=== PATIENT | male | born 1940 | race Caucasian/White ===

== ENCOUNTER 2016-08-07 10:23 | Emergency (ER) | payer OTHER ==
[~2016-08-07 10:23] MED LIST: ACET-1311 PO; ASPI81TA28 PO; BISA10SU5 PR; CHOL1000 PO; CLC100X PO; ENOX1INJ8 SQ; FAMO20TA11 PO; LACT10SO30 PO; LPT40 PO; MAGNSUS5 PO; MCRK20 PO; NF656 TD; PARO1TAB27 PEG; POLY335025 PO; SENN-91 PO; SODIENE PR; TRAM-10 PO
[2016-08-07 10:29] VITALS: TEMP 36.7
--- NOTE | 2016-08-07 10:54 | EMERGENCY ROOM VISIT NOTE ---
History Report prepared by Mil: Gopi Sainz Under the Supervision of: Dr. Pk Ivory D.O. First contact with patient: 10:35 Chief Complaint: SWELLING TO EXTREMITY Stated Complaint: RT FOOT SWELLED,BLACK&BLUE,LEFT FOOT BLACK &BLUE History of Present Illness The patient is a 76 year old male who presents to the Emergency Room with complaints of worsening feet discoloration that started a few days ago. Per the patient's daughter, the patient started having right foot swelling 6 days ago, but it did not have any discoloration. The patient's right foot then started turning purple a few days ago, and last night, the patient's daughter noticed that the patient's left foot started turning purple. The patient's daughter says that the patient denies any recent injuries to his feet. The patient is able to stand and pivot into his wheelchair, but needs his daughter to hold him up. The patient notes that his feet are painful. He denies any nausea, vomiting , abdominal pain, or hip pain. The patient takes 200 mg Gabapentin 3 times per day, and 50 mg Tramadol as needed. He has a history of a stroke in 2004, and had a fall 3 years ago, which caused the patient to have a right total hip replacement. Source of History: patient, family Onset: A few days ago Position: foot (bilateral) Quality: other (discoloration - purple) Timing: worsening Associated Symptoms: No abdominal pain, No nausea, No vomiting Note: Associated symptoms: Right foot swelling. Denies hip pain. Review of Systems See HPI for pertinent positives & negatives. A total of 10 systems reviewed and were otherwise negative. Past Medical & Surgical Medical Problems: (1) Depressive Disorder Nec (2) Hypertension Nos (3) Stroke (4) Throat cancer Family History Family history omitted secondary to patient's advanced age. Social History Smoking Status: Current Every Day Smoker Marital Status: Housing Status: lives alone Occupation Status: disabled Current/Historical Medications Scheduled Cholecalciferol (Vitamin D3), 1,000 INTER.UNIT PO DAILY Gabapentin (Neurontin), 200 MG PO TID Levothyroxine Sodium (Levothyroxine Sodium), 100 MCG PO DAILY Paroxetine (Paxil), 20 MG PO HS Varenicline (Chantix), 0.5 MG PO BID Scheduled PRN Bisacodyl (Bisacodyl), 1 SUPP CA 2XWK PRN for No Bowel Movement/Constipation Tramadol (Ultram), 50 MG PO Q4H PRN for Pain Allergies Coded Allergies: Aspirin (Verified Adverse Reaction, Mild, PT AVOIDS ASPIRIN, 08/07/16) Physical Exam Vital Signs Date Time Temp Pulse Resp B/P Pulse Ox O2 Delivery O2 Flow Rate FiO2 08/07/16 13:20 60 20 99 08/07/16 13:15 64 19 99 08/07/16 13:10 65 17 98 08/07/16 13:05 68 24 100 08/07/16 13:00 124/56 08/07/16 12:53 68 17 99 08/07/16 12:30 114/67 08/07/16 12:23 72 19 98 08/07/16 12:01 116/58 08/07/16 11:53 74 18 99 08/07/16 11:40 121/52 08/07/16 11:34 76 08/07/16 11:01 118/55 08/07/16 10:40 136/67 08/07/16 10:29 36.7 98 20 83/55 98 Room Air Physical Exam GENERAL: Patient is awake, alert, and in no acute distress. Patient is resting comfortably and showing no signs of anxiety EYES: The conjunctivae are clear. The pupils are round and reactive. EARS, NOSE, MOUTH AND THROAT: Mucous membranes are moist. NECK: The neck is nontender and supple. RESPIRATORY: Normal respiratory effort is noted there is no evidence of wheezing rhonchi or rales CARDIOVASCULAR: Regular rate and rhythm noted there no murmurs rubs or gallops normal S1 normal S2 GASTROINTESTINAL: The abdomen is soft. Bowel sounds are present in all quadrants. Abdomen is nontender MUSCULOSKELETAL/EXTREMITIES: Ecchymosis noted over medial aspect of both heels. Significant tenderness over both heels with compression. Ecchymosis appeared age indeterminant and nonacute. SKIN: No edema noted. Pulses symmetric in both lower extremities. NEUROLOGIC: Patient is at baseline according to daughter. Medical Decision & Procedures ER Provider Diagnostic Interpretation: X-ray results as stated below per interpretation by me and the radiologist. RIGHT FOOT MIN 3 VIEWS ROUTINE CLINICAL HISTORY: Right foot swelling COMPARISON: None. DISCUSSION: The bones are osteopenic. No acute fractures are visualized. There is an Achilles insertional spur. There is mild soft tissue swelling. There is no air within soft tissues. There are no bony destructive changes. IMPRESSION: Osteopenia. No acute fractures. No destructive lesions are visualized. Electronically signed by: Saad Harris M.D. 08/07/2016 11:45 AM Dictated Date/Time: 08/07/2016 11:44 AM LEFT FOOT MIN 3 VIEWS ROUTINE CLINICAL HISTORY: Left foot pain and bruising. No known trauma. COMPARISON: None. DISCUSSION: The bones are osteopenic. No acute fractures are visualized. There is fusion of the second and third proximal interphalangeal joints. No destructive lesions are evident. Vascular calcifications are visualized. IMPRESSION: 1. No acute fractures or dislocations 2. Osteopenia 3. Fusion of the second and third proximal interphalangeal joints Electronically signed by: Saad Harris M.D. 08/07/2016 11:53 AM Dictated Date/Time: 08/07/2016 11:52 AM ED Course 1045: The patient was evaluated in room B6. A complete history and physical examination were performed. 1258: I talked to the patient's daughter. 1314: Upon reevaluation, the patient is resting comfortably. I discussed the results and treatment plan with him and his daughter. They verbalized agreement of the treatment plan. The patient was discharged home. Medical Decision Prior records reviewed and summarized above. Triage Nursing notes reviewed and agree them. Additional history obtained from daughter. The patient's history was concerning for traumatic injury. Differential diagnosis: Etiologies such as fracture, dislocation, neurovascular compromise, compartment syndrome, soft tissue injury, as well as others were entertained. The patient is a 76-year-old male who presented to the emergency department for ecchymosis over both feet. He was no definite history of trauma but this does not appear to be consistent with infection. The patient had x-rays which did not reveal any acute traumatic injury. I discussed the patient's radiographic studies with him and his daughter. At this time I would recommend that he follow -up with his primary care physician for re-x-ray and return to the emergency department if signs of infection develop such as redness or fever. I do not feel this is consistent with DVT or arterial insufficiency. Impression Primary Impression: Contusion of foot, right Additional Impression: Contusion of foot, left Scribe Attestation The scribe's documentation has been prepared under my direction and personally reviewed by me in its entirety. I confirm that the note above accurately reflects all work, treatment, procedures, and medical decision making performed by me. Departure Information Dispostion Home / Self-Care Referrals Demetrius Lin M.D. (PCP) Forms HOME CARE DOCUMENTATION FORM, IMPORTANT VISIT INFORMATION, WORK / SCHOOL INSTRUCTIONS Patient Instructions Contusion Bone, [facility] Additional Instructions Call your family to schedule a follow-up appointment. Continue all medications as prescribed. Keep a close eye on the area for any signs of cellulitis such as redness or streaking going up the leg. I would recommend re-x -ray of the area if symptoms change worsen or need arises. Problem Qualifiers
[2016-08-07] MEDS ORDERED: GABA-112 PEG (11:09)
[2016-08-07] MEDS ORDERED: LEVO100T7 PEG (11:09)
[2016-08-07] MEDS ORDERED: CHN/1 PO (11:09)
--- NOTE | 2016-08-07 11:46 | DIAGNOSTIC IMAGING REPORT ---
RIGHT FOOT MIN 3 VIEWS ROUTINE CLINICAL HISTORY: Right foot swelling COMPARISON: None. DISCUSSION: The bones are osteopenic. No acute fractures are visualized. There is an Achilles insertional spur. There is mild soft tissue swelling. There is no air within soft tissues. There are no bony destructive changes. IMPRESSION: Osteopenia. No acute fractures. No destructive lesions are visualized. Electronically signed by: Saad Harris M.D. 08/07/2016 11:45 AM Dictated Date/Time: 08/07/2016 11:44 AM
--- NOTE | 2016-08-07 11:54 | DIAGNOSTIC IMAGING REPORT ---
LEFT FOOT MIN 3 VIEWS ROUTINE CLINICAL HISTORY: Left foot pain and bruising. No known trauma. COMPARISON: None. DISCUSSION: The bones are osteopenic. No acute fractures are visualized. There is fusion of the second and third proximal interphalangeal joints. No destructive lesions are evident. Vascular calcifications are visualized. IMPRESSION: 1. No acute fractures or dislocations 2. Osteopenia 3. Fusion of the second and third proximal interphalangeal joints Electronically signed by: Saad Harris M.D. 08/07/2016 11:53 AM Dictated Date/Time: 08/07/2016 11:52 AM
[2016-08-07 13:00] VITALS: BP 124/56
[2016-08-07 13:20] VITALS: PULSE 60; O2SAT 99
[2016-12-10] MEDS ORDERED: Fibersource 1.2 Cal PEG (13:31)
[2016-12-10] MEDS ORDERED: [UNRECOGNIZED DRUG - CODE] PEG (13:31)
[2016-12-10] MEDS ORDERED: IPRASOL4 INH (13:31)
[2016-12-10] MEDS ORDERED: ACET160S3 PEG (13:31)
[2016-12-10] MEDS ORDERED: ASPEC81 PEG (13:33)
== END 2016-08-07 13:23 | disposition home or self-care (01) ==
LOC: C.EDB 10:28
DX: S90.31XA Contusion of right foot, initial encounter (principal); S90.32XA Contusion of left foot, initial encounter; X58.XXXA Exposure to other specified factors, initial encounter; Z86.73 Personal history of transient ischemic attack (TIA), and cerebral infarction without residual deficits; I10 Essential (primary) hypertension; Z85.89 Personal history of malignant neoplasm of other organs and systems; F17.210 Nicotine dependence, cigarettes, uncomplicated; Z79.899 Other long term (current) drug therapy; Z96.641 Presence of right artificial hip joint

== ENCOUNTER 2016-11-28 10:28 | Inpatient (IN) | payer OTHER ==
[~2016-11-28] VITALS: Ht 165.1 cm; Wt 45.1 kg
[~2016-11-28 10:28] MED LIST changes: -ACET-1311 PO; -ASPI81TA28 PO; +CHN/1 PO; -CLC100X PO; -ENOX1INJ8 SQ; -FAMO20TA11 PO; +GABA-112 PEG; -LACT10SO30 PO; +LEVO100T7 PEG; -LPT40 PO; -MAGNSUS5 PO; -MCRK20 PO; -NF656 TD; -POLY335025 PO; -SENN-91 PO; -SODIENE PR
[2016-11-28] MEDS ORDERED: SODIUM CHLORIDE 0.9% 1000ML 1,000 ML IV STA (10:53)
[2016-11-28 12:05] LABS: BASO % 0.3 %; BASO ABS # 0.03 K/uL (0-0.2); COMPLETE YES; EOS % 1.4 %; HEMATOCRIT 34.4 % (42-52); IG% 0.5 %; LYMPH % 8.1 %; LYMPH ABS # 0.95 K/uL (1.2-3.4); MEAN CELL VOLUME 74.1 fL (80-100); MEAN CORPUSCULAR HEMOGLOBIN 24.4 pg (25-34); MEAN CORPUSCULAR HGB CONC 32.8 g/dl (32-36); MEAN PLATELET VOLUME 9.3 fL (7.4-10.4); NEUT % 81.7 %; PLATELET COUNT 408 K/uL (130-400); RED BLOOD COUNT 4.64 M/uL (4.7-6.1); WHITE BLOOD COUNT 11.66 K/uL (4.8-10.8)
[2016-11-28 12:11] LABS: URINE APPEARANCE CLEAR (CLEAR); URINE BILIRUBIN NEG (NEG); URINE COLOR DK YELLOW; URINE EPITHELIAL CELL AUTO 0-5 /lpf (0-5); URINE NITRITE NEG (NEG); URINE SPECIFIC GRAVITY 1.034 (1.000-1.030); UROBILINOGEN NEG (NEG)
[2016-11-28 12:15] LABS: ALT/SGPT 15 U/L (12-78); BLOOD UREA NITROGEN 39 mg/dl (7-18); BUN/CREATININE RATIO 69.8 (10-20); CALCIUM 9.5 mg/dl (8.5-10.1); CARBON DIOXIDE 27 mmol/L (21-32); CHLORIDE 108 mmol/L (98-107); CREATININE 0.56 mg/dl (0.60-1.40); GLUCOSE 141 mg/dl (70-99); MAGNESIUM 2.3 mg/dl (1.8-2.4); POTASSIUM 3.3 mmol/L (3.5-5.1); SODIUM 143 mmol/L (136-145)
[2016-11-28 12:16] LABS: INR 1.1 (0.9-1.1); PARTIAL THROMBOPLASTIN RATIO 1.1; PROTHROMBIN TIME (PATIENT) 11.4 SECONDS (9.0-12.0)
[2016-11-28 12:16] LABS: MANUAL MICROSCOPIC REQUIRED? NO; REVIEW REQ? NO
[2016-11-28] MEDS ORDERED: AMOX875T PO (12:21)
[2016-11-28 12:24] LABS: ALKALINE PHOSPHATASE 86 U/L (45-117); AST/SGOT 20 U/L (15-37); CKMB/CK RATIO 0.3 (0-3.0)
[2016-11-28] MEDS ORDERED: SODIUM CHLORIDE 0.9% 500ML 500 ML IV STA (12:29)
--- NOTE | 2016-11-28 12:29 | DIAGNOSTIC IMAGING REPORT ---
CHEST ONE VIEW PORTABLE HISTORY: 76 years-old Male EVALUATE WEAKNESS acute weakness. Initial exam. COMPARISON: Chest radiograph 11/10/2013 TECHNIQUE: Semiupright AP view of the chest FINDINGS: Cardiac silhouette is mildly enlarged. The patient is rotated to the left. There is atherosclerosis of the aorta. Mild biapical pleural-parenchymal and retrocardiac scarring is again noted without pneumothorax, pleural effusion, focal airspace consolidation or overt pulmonary edema. The bones are grossly intact. IMPRESSION: Mild biapical and retrocardiac subsegmental scarring or atelectasis without acute cardiopulmonary process. The above report was generated using voice recognition software. It may contain grammatical, syntax or spelling errors. Electronically signed by: Venkat Arce M.D. 11/28/2016 12:28 PM Dictated Date/Time: 11/28/2016 12:27 PM
--- NOTE | 2016-11-28 13:17 | DIAGNOSTIC IMAGING REPORT ---
HEAD CT NONCONTRAST CT DOSE: 729.78 mGycm HISTORY: Altered mental status. TECHNIQUE: Multiaxial CT images of the head were performed without the use of intravenous contrast. Automated exposure control was utilized for this study. A dose lowering technique was utilized adhering to the principles of ALARA. Comparison: None. Findings: Paranasal sinuses and right mastoid air cells are clear. Opacified left inferior mastoid air cells. The calvarium and skull base are intact. There is no mass, hematoma, midline shift, acute infarct. White matter hypodensity is nonspecific but suggestive of microvascular ischemic change. The ventricles and sulci demonstrate mild age-related involutional changes. Encephalomalacia within the left external capsule and left posterior frontal lobe consistent with an old infarct. Old lacunar infarction within the left basal ganglia, right thalamus, and right basal ganglia. Impression: No acute intracranial abnormality. Atrophy and microvascular ischemic changes. Old infarcts as described above. Electronically signed by: Lyndon Barron M.D. 11/28/2016 1:16 PM Dictated Date/Time: 11/28/2016 1:13 PM
--- NOTE | 2016-11-28 13:38 | DIAGNOSTIC IMAGING REPORT ---
ABD/PELVIS NO IV OR ORAL CONT HISTORY: 76 years-old Male LLQ pain, altered acute altered mental status with left lower quadrant abdominal pain. Initial exam. COMPARISON: None available. TECHNIQUE: Multiple axial CT images of the abdomen and pelvis were obtained without contrast. A dose lowering technique was used consistent with the principals of SHELL. FINDINGS: The exam is very limited secondary to positioning of the patient. Subsegmental patchy consolidative and groundglass opacities involve the left greater than right basal lower lobes, only partially imaged. There is no pneumoperitoneum. Coronary arterial calcifications are noted. No gross abnormality of the liver identified. There is prominent streak artifact involving the liver from metallic leads adjacent to the right flank. Layering gallstones are seen within the gallbladder lumen without CT evidence of acute cholecystitis. Spleen, pancreas and right adrenal gland are grossly unremarkable. There is nodular thickening of the left adrenal gland suggesting hyperplasia. There are vascular renal calcifications bilaterally without definite renal calculi or hydronephrosis. Pelvic structures including the urinary bladder are mostly obscured from right hip hardware. There is extensive atherosclerosis of the abdominal aorta. No bulky adenopathy is identified. There is no bowel obstruction or focal small bowel wall thickening identified. There is thickening of the rectal wall, 5 mm with 6 cm stool ball in the rectal vault. Mild surrounding inflammatory stranding. There is moderate colonic stool burden. The appendix appears normal. Bones are moderately demineralized with multifocal degenerative changes. No acute bony abnormality. IMPRESSION: 1. Very limited study secondary to patient positioning and lack of contrast. 2. Wall thickening of the rectum with associated moderate rectal stool volume suggests stercoral proctitis with associated constipation. 3. Cholelithiasis without CT evidence of acute cholecystitis. 4. Left greater than right bilateral lower lobe groundglass and consolidative opacities are suspicious for pneumonia or aspiration pneumonitis. 5. Additional incidental findings as above. The above report was generated using voice recognition software. It may contain grammatical, syntax or spelling errors. Electronically signed by: Venkat Arce M.D. 11/28/2016 1:37 PM Dictated Date/Time: 11/28/2016 1:24 PM
[2016-11-28] MEDS ORDERED: PIPERACILLIN/TAZOBACTAM 3.375 GM/100ML D5W IV STA (14:28)
[2016-11-28] MEDS ORDERED: LEVAQUIN 750MG / 150ML D5W IV STA (14:28)
[2016-11-28] MEDS ORDERED: PIPERACILL/TAZOBAC IV 3.375 GM in DEXTROSE 5% 100ML IV ONE (15:00)
[2016-11-28] MEDS ORDERED: ONDANSETRON INJ 2 MG/ML 2 ML VIAL IV PRN (15:30)
[2016-11-28] MEDS ORDERED: ACETAMINOPHEN 325 MG TAB PO PRN (15:30)
[2016-11-28] MEDS ORDERED: CHOL100040 PEG (16:05)
[2016-11-28] MEDS ORDERED: ASPI-589 PO (16:05)
[2016-11-28] MEDS ORDERED: BISA10SU38 PR (16:05)
[2016-11-28] MEDS ORDERED: ASPEC81 PO (16:33)
[2016-11-28] MEDS ORDERED: ACETAMINOPHEN IV 650 MG in EMPTY BAG 0 ML IV PRN (16:45)
[2016-11-28] MEDS ORDERED: ACETAMINOPHEN IV 650 MG in EMPTY BAG 0 ML IV ONE (17:00)
--- NOTE | 2016-11-28 17:16 | History and Physical ---
History & Physical Date & Time of Service: Nov 28, 2016 at 16:03 Chief Complaint: Knee/Leg Issue Primary Care Physician: Demetrius Lin M.D. History of Present Illness Source: family (daughter via phone call) This is a 76 y/o male with PMH of stroke with residual RUE/RLE weakness, aphasia , dysphagia, hx throat cancer, and other problems listed below who was sent to the ED by ambulance from home for decubitus ulcer and hypoxia noted by home nurse. Unable to obtain hx from patient due to aphasia. Per phone call with daughter Nikkie who he lives with, patient developed a bed sore on the sacrum last week. Had been lying in bed most of the day due to bilateral foot pain x 6 weeks. Gets transferred up to wheelchair twice per day. Pt's PCP was called about the ulcer and home nursing was started. Patient has also been on Augmentin for 6 days, Rx called in by Dr. Lin for "lung congestion" heard by home nurse. This morning home nurse noted BP was elevated and oxygen saturations dropped to 86-87% on RA. Not on home O2. Has been coughing without bringing up sputum. No fever or chills. Eats pureed diet. No overt aspiration episode per daughter. Has chronic dysphagia, but daughter feels his swallowing is worse lately. Appetite is low for 2 days (eating half of meals). Lost about 10 lb in past few months. Daughter states she thinks he may need a feeding tube. States he is passing BM on current regimen. Has chronic weakness of RUE and RLE post-stroke. Starting 4 days ago daughter reports RLE is contracted and right knee pain. No recent fall. No recent hospitalization. The patient himself denies chest pain or SOB. Points to lower extremities when asked about pain. Past Medical/Surgical History Medical Problems: (1) CAD (coronary artery disease) Permanent Comment: abnormal stress test 1998 Status: Chronic (2) Depressive Disorder Nec Status: Chronic (3) GERD (gastroesophageal reflux disease) Status: Chronic (4) Hyperlipidemia Status: Chronic (5) Hypertension Nos Status: Chronic (6) Hypothyroidism Status: Chronic (7) Neurogenic bladder Status: Chronic (8) Osteoarthritis Status: Chronic (9) Stroke Permanent Comment: 2004 Status: Resolved (10) Throat cancer Status: Resolved Surgical Problems: (1) H/O tracheostomy Status: Chronic (2) History of right hip replacement Permanent Comment: 2/2 fracture Status: Chronic (3) Hx PEG tube Permanent Comment: removed Status: Chronic (4) S/P hemorrhoidectomy Status: Chronic Family History Diabetes mellitus MOTHER Social History Smoking Status: Current Every Day Smoker (down to 1/4 pack per day up until recently- daughter took away cigs, felt he was not safe smoking) Alcohol Use: 1-2 beers per day up until recently Marital Status: Occupational Status: disabled Multi-Drug Resistant Organisms History of MDRO: No Home Medications Scheduled Amoxicillin & Pot Clavulanate (Augmentin 875-125 mg), 1 TAB PO BID Aspirin (Aspirin EC Low Dose), 81 MG PO DAILY Bisacodyl (Dulcolax), 1 SUPP DC UD Cholecalciferol (Vitamin D-1000), 1 TAB PO DAILY Gabapentin (Neurontin), 200 MG PO TID Levothyroxine Sodium (Levothyroxine Sodium), 75 MCG PO DAILY Paroxetine (Paxil), 20 MG PO DAILY Scheduled PRN Tramadol (Ultram), 50 MG PO Q4H PRN for Pain Physical Exam Vital Signs Date Time Temp Pulse Resp B/P (MAP) Pulse Ox O2 Delivery O2 Flow Rate FiO2 11/28/16 15:23 69 18 166/66 95 Room Air 11/28/16 13:45 72 11/28/16 13:11 69 20 162/81 100 Nasal Cannula 2.0 11/28/16 11:37 79 20 138/72 99 Nasal Cannula 2.0 11/28/16 10:52 99 Nasal Cannula 2.0 11/28/16 10:52 99 Nasal Cannula 2.0 11/28/16 10:44 74 11/28/16 10:41 36.5 81 22 155/63 85 Room Air General Appearance: + cachetic, + pertinent finding (alert frail elderly male, not in distress) Head: normocephalic, atraumatic Eyes: normal inspection, sclerae normal ENT: hearing grossly normal, + pertinent finding (dry mucous membranes) Neck: trachea midline Respiratory/Chest: no respiratory distress, no accessory muscle use, + rhonchi (scattered), + pertinent finding (hypoxic to 89% on RA, mid 90's on 2L NC) Cardiovascular: regular rate, rhythm, no murmur Abdomen/GI: normal bowel sounds, non tender, soft Extremities/Musculoskelatal: no calf tenderness, no pedal edema Neurologic/Psych: alert, normal mood/affect, + pertinent finding (mostly aphasic but can answer yes/no questions, RUE and RLE flaccid from prior stroke, able to move LUE and LLE on command) Skin: + pertinent finding (sacrum has 3x4 cm foul smelling decubitus ulcer, unstageable, at least stage III, surrounding ecchymosis) Diagnostics Laboratory Results Results Past 24 Hours Test 11/28/16 11:00 11/28/16 11:28 11/28/16 11:37 Range/Units Urine Color DK YELLOW Urine Appearance CLEAR CLEAR Urine pH 5.0 4.5-7.5 Urine Specific [place] 1.034 1.000-1.030 Urine Protein 1+ NEG Urine Glucose (UA) NEG NEG Urine Ketones TRACE NEG Urine Occult Blood NEG NEG Urine Nitrite NEG NEG Urine Bilirubin NEG NEG Urine Urobilinogen NEG NEG Urine Leukocyte Esterase NEG NEG Urine WBC (Auto) 1-5 0-5 /hpf Urine RBC (Auto) 0-4 0-4 /hpf Urine Hyaline Casts (Auto) 1-5 0-5 /lpf Urine Epithelial Cells (Auto) 0-5 0-5 /lpf Urine Bacteria (Auto) NEG NEG White Blood Count 11.66 4.8-10.8 K/uL Red Blood Count 4.64 4.7-6.1 M/uL Hemoglobin 11.3 14.0-18.0 g/dL Hematocrit 34.4 42-52 % Mean Corpuscular Volume 74.1 80-100 fL Mean Corpuscular Hemoglobin 24.4 25-34 pg Mean Corpuscular Hemoglobin Concent 32.8 32-36 g/dl Platelet Count 408 130-400 K/uL Mean Platelet Volume 9.3 7.4-10.4 fL Neutrophils (%) (Auto) 81.7 % Lymphocytes (%) (Auto) 8.1 % Monocytes (%) (Auto) 8.0 % Eosinophils (%) (Auto) 1.4 % Basophils (%) (Auto) 0.3 % Neutrophils # (Auto) 9.53 1.4-6.5 K/uL Lymphocytes # (Auto) 0.95 1.2-3.4 K/uL Monocytes # (Auto) 0.93 0.11-0.59 K/uL Eosinophils # (Auto) 0.16 0-0.5 K/uL Basophils # (Auto) 0.03 0-0.2 K/uL RDW Standard Deviation 53.2 36.4-46.3 fL RDW Coefficient of Variation 19.8 11.5-14.5 % Immature Granulocyte % (Auto) 0.5 % Immature Granulocyte # (Auto) 0.06 0.00-0.02 K/uL Prothrombin Time 11.4 9.0-12.0 SECONDS Prothromb Time International Ratio 1.1 0.9-1.1 Activated Partial Thromboplast Time 29.2 21.0-31.0 SECONDS Partial Thromboplastin Ratio 1.1 Sodium Level 143 136-145 mmol/L Potassium Level 3.3 3.5-5.1 mmol/L Chloride Level 108 98-107 mmol/L Carbon Dioxide Level 27 21-32 mmol/L Anion Gap 8.0 3-11 mmol/L Blood Urea Nitrogen 39 7-18 mg/dl Creatinine 0.56 0.60-1.40 mg/dl Est Creatinine Clear Calc Drug Dose 69.2 ml/min Estimated GFR () 115.6 Estimated GFR (Non- 99.8 BUN/Creatinine Ratio 69.8 10-20 Random Glucose 141 70-99 mg/dl Calcium Level 9.5 8.5-10.1 mg/dl Magnesium Level 2.3 1.8-2.4 mg/dl Total Bilirubin 0.3 0.2-1 mg/dl Direct Bilirubin 0.1 0-0.2 mg/dl Aspartate Amino Transf (AST/SGOT) 20 15-37 U/L Alanine Aminotransferase (ALT/SGPT) 15 12-78 U/L Alkaline Phosphatase 86 45-117 U/L Total Creatine Kinase 339 39-308 U/L Creatine Kinase MB 1.1 0.5-3.6 ng/ml Creatine Kinase MB Ratio 0.3 0-3.0 Troponin I < 0.015 0-0.045 ng/ml Total Protein 8.1 6.4-8.2 gm/dl Albumin 2.7 3.4-5.0 gm/dl Lipase 152 73-393 U/L Thyroid Stimulating Hormone (TSH) 2.030 0.300-4.500 uIu/ml Bedside Lactic Acid Venous 1.42 0.90-1.70 mmol/L Microbiology Results 11/28/16 Blood Culture, Received Pending 11/28/16 Blood Culture, Received Pending 11/28/16 Urine Culture, Received Pending Diagnostic Radiology CHEST ONE VIEW PORTABLE IMPRESSION: Mild biapical and retrocardiac subsegmental scarring or atelectasis without acute cardiopulmonary process. HEAD CT NONCONTRAST Impression: No acute intracranial abnormality. Atrophy and microvascular ischemic changes. Old infarcts as described above. ABD/PELVIS NO IV OR ORAL CONT IMPRESSION: 1. Very limited study secondary to patient positioning and lack of contrast. 2. Wall thickening of the rectum with associated moderate rectal stool volume suggests stercoral proctitis with associated constipation. 3. Cholelithiasis without CT evidence of acute cholecystitis. 4. Left greater than right bilateral lower lobe groundglass and consolidative opacities are suspicious for pneumonia or aspiration pneumonitis. 5. Additional incidental findings as above. EKG sinus with occasional PVC, no ST abnormality Impression Assessment and Plan ACUTE HYPOXIA 2/2 ASPIRATION PNEUMONIA Mild leukocytosis, afebrile, no sepsis Failed outpatient tx for presumed bronchitis/ PNA with Augmentin Has chronic dysphagia 2/2 throat CA and prior CVA, worsening recently per daughter, although no overt aspiration CT a/p- left greater than right bilateral lower lobe groundglass and consolidative opacities are suspicious for pneumonia or aspiration pneumonitis. Continue Levaquin and Zosyn started in ER Failed bedside swallow testing by [facility] N[facility] NPO until evaluated by speech therapy Aspiration precautions Supplemental O2 per protocol UNSTAGEABLE SACRAL DECUBITUS ULCER Wound RN saw pt in ER, appreciate input Wound culture pending Check MRI lumbar spine to r/o osteomyelitis Will be covered for infected ulcer with current abx regimen Low air loss bed Consult Dr. Lynn LOWER EXTREMITY PAIN IV Tylenol while NPO HISTORY OF CVA Resume baby aspirin, not taking for approx 2 weeks due to running out of med- daughter OK with resuming PO meds on hold- will resume cleared by speech Not on statin HYPOTHYROIDISM Hold levothyroxine for NPO status DEPRESSION Hold Paxil for NPO status MALNUTRITION [employer] Supervisor consult DVT PROPHYLAXIS Heparin SQ CODE STATUS Full code per my discussion with patient's daughter Nikkie. There is no POA. Daughter Nikkie DISPOSITION Med/ surg Lived at with family, daughter interested in placement PT, OT, social service consults Patient seen in collaboration with Dr. Dhaliwal. Please see his addendum. VTE Prophylaxis VTE Risk Assessment Done? Y/N: Yes Risk Level: Moderate
--- NOTE | 2016-11-28 17:24 | History and Physical ---
History & Physical Date of Service Nov 28, 2016. 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 Caretakers and family take care of him. Presents to the ER due to worsening sacral decubitus ulcers and L sided rhonchi as per caretakers. Upon presentation, patient found to have pneumonitis/pneumonia, likely secondary to aspiration; as patient does have residual dysphagia secondary to CVA. He is +weak, but otherwise, no complaints.] On physical exam, L sided weakness, aphasia, can talk in one-two word answers at times. Thin and cachectic. Decreased motor function Sacral decubitus ulcers noted; difficult to stage For the aspiration pneumonia, we will do Levaquin and Zosyn. Get speech evaluation, NPO prior to this. Check an MRI of the lumbosacral spine to r/o osteomyelitis. Dr. Lynn, wound care consulted Will need discharge planning evaluation as patient's family state they cannot care for him any longer. PT/OT car repairman consult due to failure to thrive discussed with patient's family members; currently he is full code; should have a more in-depth conversation regarding patient's condition and failure to thrive.
[2016-11-28] MEDS ORDERED: PATIENT'S ALLERGY INFO NEEDS ENTERED SCH (18:00)
[2016-11-28 18:41] VITALS: BP 182/72; PULSE 75; TEMP 36.4; O2SAT 96; Ht 165.1 cm; Wt 45.1 kg
[2016-11-28] MEDS: POTASSIUM CHLR 10 MEQ / WTR 10 MEQ in PREMIXED WATER 100 ML IV SCH ×4 (19:18→23:31)
[2016-11-28] MEDS: SODIUM CHLORIDE 0.9% 1000ML 1,000 ML IV SCH (19:19)
[2016-11-28] MEDS ORDERED: PIPERACILL/TAZOBAC CONSULT ACTIVE PRN (19:26)
[2016-11-28] MEDS ORDERED: ENALAPRILAT IV 2.5 MG in DEXTROSE 5% 25ML 25 ML IV ONE (19:45)
[2016-11-28] MEDS: PIPERACILL/TAZOBAC IV 3.375 GM in DEXTROSE 5% 100ML IV SCH (20:17)
[2016-11-28] MEDS: HEPARIN SOD 5000 UNIT/0.5 ML CARP SQ SCH (20:19)
--- NOTE | 2016-11-28 20:39 | EMERGENCY ROOM VISIT NOTE ---
History Report prepared by Mil: Renu Miles Under the Supervision of: Dr. Tristan Jameson M.D. First contact with patient: 10:53 Chief Complaint: OTHER COMPLAINT Stated Complaint: KNEE/LEG ISSUE History of Present Illness The patient is a 76 year old male who presents to the Emergency Room with complaints of constant right foot discoloration beginning today. The patient has a history of a stroke and has been nonverbal since then. Per nursing staff, the patient lives with his daughter and she is unable to care for him any longer. She reports that the patient has ulcers on the buttock and is seeing wound care. She notes that the patient has had increasing contractures and weakness over the last few days. The patient denies any chest pain and headache. The patient was hypoxic at 85% on arrival. HPI limited secondary to nonverbal status. Source of History: nursing staff History Limited By: other (nonverbal) Onset: today Position: foot (right) Quality: other (discoloration) Timing: constant Review of Systems See HPI for pertinent positives and negatives. A total of ten systems were reviewed and were otherwise negative. Past Medical & Surgical Medical Problems: (1) Aspiration pneumonia (2) CAD (coronary artery disease) (3) Depressive Disorder Nec (4) GERD (gastroesophageal reflux disease) (5) Hyperlipidemia (6) Hypertension Nos (7) Hypothyroidism (8) Neurogenic bladder (9) Osteoarthritis (10) Stroke (11) Throat cancer Surgical Problems: (1) H/O tracheostomy (2) History of right hip replacement (3) Hx PEG tube (4) S/P hemorrhoidectomy Family History No pertinent family history stated. Social History Smoking Status: Current Every Day Smoker Marital Status: Housing Status: lives alone Occupation Status: disabled Current/Historical Medications Scheduled Amoxicillin & Pot Clavulanate (Augmentin 875-125 mg), 1 TAB PO BID Aspirin (Aspirin EC Low Dose), 81 MG PO DAILY Bisacodyl (Dulcolax), 1 SUPP MI UD Cholecalciferol (Vitamin D-1000), 1 TAB PO DAILY Gabapentin (Neurontin), 200 MG PO TID Levothyroxine Sodium (Levothyroxine Sodium), 75 MCG PO DAILY Paroxetine (Paxil), 20 MG PO DAILY Scheduled PRN Tramadol (Ultram), 50 MG PO Q4H PRN for Pain Allergies Coded Allergies: No Known Allergies (Unverified , 11/28/16) Physical Exam Vital Signs Date Time Temp Pulse Resp B/P (MAP) Pulse Ox O2 Delivery O2 Flow Rate FiO2 11/28/16 13:45 72 11/28/16 13:11 69 20 162/81 100 Nasal Cannula 2.0 11/28/16 11:37 79 20 138/72 99 Nasal Cannula 2.0 11/28/16 10:52 99 Nasal Cannula 2.0 11/28/16 10:52 99 Nasal Cannula 2.0 11/28/16 10:44 74 11/28/16 10:41 36.5 81 22 155/63 85 Room Air Physical Exam GENERAL: Awake, alert, nonverbal. HENT: Normocephalic, atraumatic. Oropharynx unremarkable. EYES: Normal conjunctiva. Sclera non-icteric. NECK: Supple. No nuchal rigidity. FROM. No JVD. RESPIRATORY: Clear to auscultation. CARDIAC: Regular rate, normal rhythm. Extremities warm and well perfused. Pulses equal. ABDOMEN: Soft, non-distended. LLQ abdominal tenderness. No rebound or guarding. No masses. RECTAL: Deferred. MUSCULOSKELETAL: Chest examination reveals no tenderness. The back is symmetrical on inspection without obvious abnormality. There is no CVA tenderness to palpation. No joint edema. Muscular atrophy to lower and upper extremities. LOWER EXTREMITIES: Calves are equal size bilaterally and non-tender. No edema. Capillary refill 3 seconds. Weak Doppler pulses in the posterior tibial, dorsalis pedis pulse unobtainable. No foot tenderness, mild bruising to the foot. NEURO: Altered sensorium. Awake, alert, nonverbal. SKIN: No rash or jaundice noted. Grade I decubitus to both buttocks. Medical Decision & Procedures ER Provider Diagnostic Interpretation: Radiology results as stated below per my review and radiologist interpretation: CHEST ONE VIEW PORTABLE FINDINGS: Cardiac silhouette is mildly enlarged. The patient is rotated to the left. There is atherosclerosis of the aorta. Mild biapical pleural-parenchymal and retrocardiac scarring is again noted without pneumothorax, pleural effusion, focal airspace consolidation or overt pulmonary edema. The bones are grossly intact. IMPRESSION: Mild biapical and retrocardiac subsegmental scarring or atelectasis without acute cardiopulmonary process. The above report was generated using voice recognition software. It may contain grammatical, syntax or spelling errors. Electronically signed by: Venkat Arce M.D. 11/28/2016 12:28 PM Dictated Date/Time: 11/28/2016 12:[address] NONCONTRAST Findings: Paranasal sinuses and right mastoid air cells are clear. Opacified left inferior mastoid air cells. The calvarium and skull base are intact. There is no mass, hematoma, midline shift, acute infarct. White matter hypodensity is nonspecific but suggestive of microvascular ischemic change. The ventricles and sulci demonstrate mild age-related involutional changes. Encephalomalacia within the left external capsule and left posterior frontal lobe consistent with an old infarct. Old lacunar infarction within the left basal ganglia, right thalamus, and right basal ganglia. Impression: No acute intracranial abnormality. Atrophy and microvascular ischemic changes. Old infarcts as described above. Electronically signed by: Lyndon Barron M.D. 11/28/2016 1:16 PM Dictated Date/Time: 11/28/2016 1:13 PM ABD/PELVIS NO IV OR ORAL CONT FINDINGS: The exam is very limited secondary to positioning of the patient. Subsegmental patchy consolidative and groundglass opacities involve the left greater than right basal lower lobes, only partially imaged. There is no pneumoperitoneum. Coronary arterial calcifications are noted. No gross abnormality of the liver identified. There is prominent streak artifact involving the liver from metallic leads adjacent to the right flank. Layering gallstones are seen within the gallbladder lumen without CT evidence of acute cholecystitis. Spleen, pancreas and right adrenal gland are grossly unremarkable. There is nodular thickening of the left adrenal gland suggesting hyperplasia. There are vascular renal calcifications bilaterally without definite renal calculi or hydronephrosis. Pelvic structures including the urinary bladder are mostly obscured from right hip hardware. There is extensive atherosclerosis of the abdominal aorta. No bulky adenopathy is identified. There is no bowel obstruction or focal small bowel wall thickening identified. There is thickening of the rectal wall, 5 mm with 6 cm stool ball in the rectal vault. Mild surrounding inflammatory stranding. There is moderate colonic stool burden. The appendix appears normal. Bones are moderately demineralized with multifocal degenerative changes. No acute bony abnormality. IMPRESSION: 1. Very limited study secondary to patient positioning and lack of contrast. 2. Wall thickening of the rectum with associated moderate rectal stool volume suggests stercoral proctitis with associated constipation. 3. Cholelithiasis without CT evidence of acute cholecystitis. 4. Left greater than right bilateral lower lobe groundglass and consolidative opacities are suspicious for pneumonia or aspiration pneumonitis. 5. Additional incidental findings as above. The above report was generated using voice recognition software. It may contain grammatical, syntax or spelling errors. Electronically signed by: Venkat Arce M.D. 11/28/2016 1:37 PM Dictated Date/Time: 11/28/2016 1:24 PM Laboratory Results 11/28/16 11:28 Red Blood Count 4.64, Mean Corpuscular Volume 74.1, Mean Corpuscular Hemoglobin 24.4, Mean Corpuscular Hemoglobin Concent 32.8, Mean Platelet Volume 9.3, Neutrophils (%) (Auto) 81.7, Lymphocytes (%) (Auto) 8.1, Monocytes (%) (Auto) 8.0, Eosinophils (%) (Auto) 1.4, Basophils (%) (Auto) 0.3, Neutrophils # (Auto) 9.53, Lymphocytes # (Auto) 0.95, Monocytes # (Auto) 0.93, Eosinophils # (Auto) 0.16, Basophils # (Auto) 0.03 11/28/16 11:28 Test 11/28/16 11:00 11/28/16 11:28 11/28/16 11:37 Urine Color DK YELLOW Urine Appearance CLEAR (CLEAR) Urine pH 5.0 (4.5-7.5) Urine Specific [place] 1.034 (1.000-1.030) Urine Protein 1+ (NEG) Urine Glucose (UA) NEG (NEG) Urine Ketones TRACE (NEG) Urine Occult Blood NEG (NEG) Urine Nitrite NEG (NEG) Urine Bilirubin NEG (NEG) Urine Urobilinogen NEG (NEG) Urine Leukocyte Esterase NEG (NEG) Urine WBC (Auto) 1-5 /hpf (0-5) Urine RBC (Auto) 0-4 /hpf (0-4) Urine Hyaline Casts (Auto) 1-5 /lpf (0-5) Urine Epithelial Cells (Auto) 0-5 /lpf (0-5) Urine Bacteria (Auto) NEG (NEG) White Blood Count 11.66 K/uL (4.8-10.8) Red Blood Count 4.64 M/uL (4.7-6.1) Hemoglobin 11.3 g/dL (14.0-18.0) Hematocrit 34.4 % (42-52) Mean Corpuscular Volume 74.1 fL (80-100) Mean Corpuscular Hemoglobin 24.4 pg (25-34) Mean Corpuscular Hemoglobin Concent 32.8 g/dl (32-36) Platelet Count 408 K/uL (130-400) Mean Platelet Volume 9.3 fL (7.4-10.4) Neutrophils (%) (Auto) 81.7 % Lymphocytes (%) (Auto) 8.1 % Monocytes (%) (Auto) 8.0 % Eosinophils (%) (Auto) 1.4 % Basophils (%) (Auto) 0.3 % Neutrophils # (Auto) 9.53 K/uL (1.4-6.5) Lymphocytes # (Auto) 0.95 K/uL (1.2-3.4) Monocytes # (Auto) 0.93 K/uL (0.11-0.59) Eosinophils # (Auto) 0.16 K/uL (0-0.5) Basophils # (Auto) 0.03 K/uL (0-0.2) RDW Standard Deviation 53.2 fL (36.4-46.3) RDW Coefficient of Variation 19.8 % (11.5-14.5) Immature Granulocyte % (Auto) 0.5 % Immature Granulocyte # (Auto) 0.06 K/uL (0.00-0.02) Prothrombin Time 11.4 SECONDS (9.0-12.0) Prothromb Time International Ratio 1.1 (0.9-1.1) Activated Partial Thromboplast Time 29.2 SECONDS (21.0-31.0) Partial Thromboplastin Ratio 1.1 Anion Gap 8.0 mmol/L (3-11) Est Creatinine Clear Calc Drug Dose 69.2 ml/min Estimated GFR () 115.6 Estimated GFR (Non- 99.8 BUN/Creatinine Ratio 69.8 (10-20) Calcium Level 9.5 mg/dl (8.5-10.1) Magnesium Level 2.3 mg/dl (1.8-2.4) Total Bilirubin 0.3 mg/dl (0.2-1) Direct Bilirubin 0.1 mg/dl (0-0.2) Aspartate Amino Transf (AST/SGOT) 20 U/L (15-37) Alanine Aminotransferase (ALT/SGPT) 15 U/L (12-78) Alkaline Phosphatase 86 U/L (45-117) Total Creatine Kinase 339 U/L (39-308) Creatine Kinase MB 1.1 ng/ml (0.5-3.6) Creatine Kinase MB Ratio 0.3 (0-3.0) Troponin I < 0.015 ng/ml (0-0.045) Total Protein 8.1 gm/dl (6.4-8.2) Albumin 2.7 gm/dl (3.4-5.0) Lipase 152 U/L (73-393) Thyroid Stimulating Hormone (TSH) 2.030 uIu/ml (0.300-4.500) Bedside Lactic Acid Venous 1.42 mmol/L (0.90-1.70) Laboratory results reviewed by me Medications Administered Medications (Trade) Dose Ordered Sig/Juan Route Start Time Stop Time Status Last Admin Dose Admin Sodium Chloride 1,000 ml @ 125 mls/hr Q8H STAT IV 11/28/16 10:53 11/28/16 17:57 DC 11/28/16 11:37 125 MLS/HR Sodium Chloride 500 ml @ 999 mls/hr Q31M STAT IV 11/28/16 12:29 11/28/16 12:59 DC 11/28/16 12:35 999 MLS/HR Levofloxacin (Levaquin / D5W) 750 mg NOW STAT IV 11/28/16 14:28 11/28/16 14:31 DC 11/28/16 16:47 750 MG Piperacillin Sod/ Tazobactam Sod 3.375 gm/Dextrose 115 ml @ 230 mls/hr NOW ONCE IV 11/28/16 15:00 11/28/16 15:29 DC 11/28/16 15:16 230 MLS/HR ECG Indication: weakness Rate (beats per minute): 77 Rhythm: sinus rhythm Findings: PVC, no acute ischemic change, no ectopy ED Course 1053: Sodium Chloride 1000 ml @ 125 mls/hr IV. 1223: The patient was evaluated in room B6. A complete history and physical exam was performed. 1229: Sodium Chloride 500 ml @ 999 mls/hr IV. 1343: I reevaluated and updated the patient. He is doing well. 1428: Zosyn IV 3.375gm IV. 1433: I discussed the patients case with pharmacy. 1440: Discussed the patient's case with Dr. Bowens. The patient will be evaluated for further treatment and disposition. 1459: Upon reexamination, the patient was doing well. I discussed the test results and treatment plan him. The patient will be evaluated for further management. 1500: Piperacillin Sod/Tazobactam Sod 3.375gm/Dextrose 115ml @ 230mls/hr Protocol IV. Medical Decision Triage Nursing notes reviewed. The patient's presentation and history were concerning for altered mental status , general decline, weakness and inability to be cared for at home. Etiologies such as metabolic, infection, hypo/hyperglycemia, electrolyte abnormalities, cardiac sources, intracerebral event, toxicologic, neurologic, as well as others were entertained. The patient was evaluated. He had diminished pulses in his lower extremities but relatively normal capillary refill. Mildly sluggish. I did obtain a posterior tibial pulse with a Doppler on the right side. The right lower extremity is not cool to the touch. He did have pain with movement. The pain seemed to be stemming from moving any part of his leg as he seems to have significant atrophy and contracture. I found no bony deformity. He did have complaints of abdominal discomfort. History was limited because of his aphasia and mental status. He denied any chest pain or headache. The patient had fluids initiated. He had blood work and cultures done. The patient underwent CT imaging. He was found to have a mild leukocytosis. Chemistry panel, urinalysis and cardiac markers were negative. His imaging was concerning for aspiration pneumonitis and stercoral colitis. He was treated with Zosyn and Levaquin. He will need admission to the hospital. I did consult with the [facility] hospitalist. The patient was evaluated in the Emergency Room for further management. Medication Reconcilliation Current Medication List: was personally reviewed by me Blood Pressure Screening Patient's blood pressure: Elevated blood pressure Blood pressure disposition: Elevated BP felt to be situational Consults Time Called: 1432 Consulting Physician: Dr. Isra Rutledge Returned Call: [phone] Discussed the patient's case with Dr. Bowens. The patient will be evaluated for further treatment and disposition. Impression Primary Impression: Dehydration Additional Impressions: Aspiration pneumonia Colitis Scribe Attestation The scribe's documentation has been prepared under my direction and personally reviewed by me in its entirety. I confirm that the note above accurately reflects all work, treatment, procedures, and medical decision making performed by me. Departure Information Dispostion Being Evaluated By Hospitalist Referrals Demetrius Lin M.D. (PCP) Patient Instructions My [facility] Problem Qualifiers
[2016-11-28 20:52] VITALS: BP 167/66; PULSE 71
--- NOTE | 2016-11-28 21:30 | DIAGNOSTIC IMAGING REPORT ---
ORBITS FOR MRI HISTORY: Pre-MRI pre-MRI screening. COMPARISON: None. FINDINGS: There are no radiopaque foreign bodies identified within the orbits. IMPRESSION: No radiopaque foreign bodies identified within the orbits. The above report was generated using voice recognition software. It may contain grammatical, syntax or spelling errors. Electronically signed by: Abhishek Caldwell M.D. 11/28/2016 9:29 PM Dictated Date/Time: 11/28/2016 9:29 PM
[2016-11-28 23:11] VITALS: BP 153/76; PULSE 69; TEMP 36.5; O2SAT 100
[2016-11-29] VITALS: O2SAT 96
[2016-11-29] MEDS: SODIUM CHLORIDE 0.9% 1000ML 1,000 ML IV SCH ×2 (00:45→08:17)
[2016-11-29] MEDS: PIPERACILL/TAZOBAC IV 3.375 GM in DEXTROSE 5% 100ML IV SCH ×3 (03:54→20:19)
--- NOTE | 2016-11-29 06:17 | DIAGNOSTIC IMAGING REPORT ---
VENOUS DOPPLER LWR EXT BILA HISTORY: Pain. Edema. r/o DVT COMPARISON STUDY: None. FINDINGS: There is normal compressibility, flow, and augmentation within the bilateral lower extremity deep venous systems. IMPRESSION: No DVT within the right or left lower extremity. The above report was generated using voice recognition software. It may contain grammatical, syntax or spelling errors. Electronically signed by: Abhishek Caldwell M.D. 11/29/2016 6:16 AM Dictated Date/Time: 11/29/2016 6:16 AM
[2016-11-29 07:34] LABS: HEMATOCRIT 31.1 % (42-52); MEAN CELL VOLUME 74.9 fL (80-100); MEAN CORPUSCULAR HEMOGLOBIN 22.7 pg (25-34); MEAN CORPUSCULAR HGB CONC 30.2 g/dl (32-36); PLATELET COUNT 335 K/uL (130-400); RED BLOOD COUNT 4.15 M/uL (4.7-6.1); WHITE BLOOD COUNT 9.63 K/uL (4.8-10.8)
[2016-11-29 08:00] VITALS: BP 143/61; PULSE 72; TEMP 36.9; O2SAT 92
[2016-11-29] MEDS: HEPARIN SOD 5000 UNIT/0.5 ML CARP SQ SCH ×2 (08:08→19:39)
[2016-11-29 08:10] LABS: BUN/CREATININE RATIO 65.8 (10-20); CALCIUM 8.4 mg/dl (8.5-10.1); CREATININE 0.36 mg/dl (0.60-1.40); POTASSIUM 3.4 mmol/L (3.5-5.1)
[2016-11-29] MEDS: BISACODYL 10 MG SUPP PR SCH (08:13)
--- NOTE | 2016-11-29 15:14 | DIAGNOSTIC IMAGING REPORT ---
LUMBAR SPINE COMBINATION HISTORY: Pain. Infection. rule out osteomyelitis; lumbosacral spine TECHNIQUE: Multiplanar multisequence MRI of the lumbar spine was performed both before and after the intravenous administration of contrast. COMPARISON: None. FINDINGS: For the purpose of the report the L5-S1 disc space will be located on axial image 2225. Moderate to rather significant degenerative disc change throughout the entire lumbar region. No bone marrow replacing process. No evidence for compression deformity. L1-L2: No significant central canal or neural foraminal narrowing. L2-L3: No significant central canal or neural foraminal narrowing. L3-L4: Mild broad-based disc bulge. No significant compromise of the spinal canal or neural foramina. L4-L5: Mild broad-based disc bulge. Minimal impact anterior thecal sac. L5-S1: No significant central canal or neural foraminal narrowing. IMPRESSION: 1. Several mild disc bulges from L3 through L5. 2. No significant disc herniation or spinal stenosis. 3. No abnormal postcontrast enhancement. 4. No bone marrow replacing process The above report was generated using voice recognition software. It may contain grammatical, syntax or spelling errors. Electronically signed by: Abhishek Caldwell M.D. 11/29/2016 3:12 PM Dictated Date/Time: 11/29/2016 3:09 PM
[2016-11-29 16:03] VITALS: BP 172/69; PULSE 67; TEMP 37; O2SAT 91
[2016-11-29 16:58] VITALS: BP 153/71
[2016-11-29] MEDS: LEVOFLOXACIN / D5W 750 MG in PREMIXED IN D5W 150 ML IV SCH (17:41)
[2016-11-29] MEDS: ACETAMINOPHEN IV 650 MG in EMPTY BAG 0 ML IV SCH (19:19)
--- NOTE | 2016-11-29 20:44 | Progress Note ---
Medicine Progress Note Date & Time of Visit: Nov 29, 2016 at 16:32. Subjective did not pass evaluation by ADMINISTRATION VICE PRESIDENT today MRI sacrum reveals no evidence of osteo pt denies pain except in knee nonverbal attempted to reach family but was unsuccessful. Objective Last 8 Hrs Date Time Temp Pulse Resp B/P (MAP) Pulse Ox O2 Delivery O2 Flow Rate FiO2 11/29/16 16:03 37.0 67 18 172/69 (103) 91 Nasal Cannula 2.0 Physical Exam: GEN: cachectic, nonverbal, in no acute distress, alert and appropriate, following commands, points to knee when asked if he is in pain. HEENT: NC/AT, PERRL, normal sclerae, mucous membranes are dry, NC in place CARDIO: reg rate, S1/2 heard without m/g/r LUNGS: coarse rhonchi at bases. ABD: soft, non-tender, non-distended, no rebound or guarding BACK: 3-4cm unstageable sacral decubitus ulcer. EXTREMITY: RP and DP palpable 2+ bilat, no LE swelling or edema, extremities are warm and well-perfused, RLE and RUE are contracted. R knee is strained from flexed position of leg and therefore exam is very limited. No obvious effusion or trauma to the knee is seen. NEURO: limited as patient is nonverbal, following commands somewhat, contracted in RLE and RUE as above. Awake, alert and trying to communicate. MUSC: wasted musculature, limited strength except in LUE and LLE SKIN: warm and dry Laboratory Results: 11/29/16 06:56 11/29/16 06:56 Test 11/28/16 11:00 11/28/16 11:28 11/28/16 11:37 11/29/16 06:56 Urine Color DK YELLOW Urine Appearance CLEAR (CLEAR) Urine pH 5.0 (4.5-7.5) Urine Specific [place] 1.034 (1.000-1.030) Urine Protein 1+ (NEG) Urine Glucose (UA) NEG (NEG) Urine Ketones TRACE (NEG) Urine Occult Blood NEG (NEG) Urine Nitrite NEG (NEG) Urine Bilirubin NEG (NEG) Urine Urobilinogen NEG (NEG) Urine Leukocyte Esterase NEG (NEG) Urine WBC (Auto) 1-5 /hpf (0-5) Urine RBC (Auto) 0-4 /hpf (0-4) Urine Hyaline Casts (Auto) 1-5 /lpf (0-5) Urine Epithelial Cells (Auto) 0-5 /lpf (0-5) Urine Bacteria (Auto) NEG (NEG) Immature Granulocyte % (Auto) 0.5 % White Blood Count 11.66 K/uL (4.8-10.8) Red Blood Count 4.64 M/uL (4.7-6.1) 4.15 M/uL (4.7-6.1) Hemoglobin 11.3 g/dL (14.0-18.0) Hematocrit 34.4 % (42-52) Mean Corpuscular Volume 74.1 fL (80-100) 74.9 fL (80-100) Mean Corpuscular Hemoglobin 24.4 pg (25-34) 22.7 pg (25-34) Mean Corpuscular Hemoglobin Concent 32.8 g/dl (32-36) 30.2 g/dl (32-36) Platelet Count 408 K/uL (130-400) Mean Platelet Volume 9.3 fL (7.4-10.4) 9.0 fL (7.4-10.4) Neutrophils (%) (Auto) 81.7 % Lymphocytes (%) (Auto) 8.1 % Monocytes (%) (Auto) 8.0 % Eosinophils (%) (Auto) 1.4 % Basophils (%) (Auto) 0.3 % Neutrophils # (Auto) 9.53 K/uL (1.4-6.5) Lymphocytes # (Auto) 0.95 K/uL (1.2-3.4) Monocytes # (Auto) 0.93 K/uL (0.11-0.59) Eosinophils # (Auto) 0.16 K/uL (0-0.5) Basophils # (Auto) 0.03 K/uL (0-0.2) Immature Granulocyte # (Auto) 0.06 K/uL (0.00-0.02) Prothrombin Time 11.4 SECONDS (9.0-12.0) Prothromb Time International Ratio 1.1 (0.9-1.1) Activated Partial Thromboplast Time 29.2 SECONDS (21.0-31.0) Partial Thromboplastin Ratio 1.1 Total Bilirubin 0.3 mg/dl (0.2-1) Direct Bilirubin 0.1 mg/dl (0-0.2) Aspartate Amino Transf (AST/SGOT) 20 U/L (15-37) Alanine Aminotransferase (ALT/SGPT) 15 U/L (12-78) Alkaline Phosphatase 86 U/L (45-117) Total Creatine Kinase 339 U/L (39-308) Creatine Kinase MB 1.1 ng/ml (0.5-3.6) Creatine Kinase MB Ratio 0.3 (0-3.0) Troponin I < 0.015 ng/ml (0-0.045) Total Protein 8.1 gm/dl (6.4-8.2) Albumin 2.7 gm/dl (3.4-5.0) Lipase 152 U/L (73-393) Thyroid Stimulating Hormone (TSH) 2.030 uIu/ml (0.300-4.500) Bedside Lactic Acid Venous 1.42 mmol/L (0.90-1.70) RDW Standard Deviation 54.9 fL (36.4-46.3) RDW Coefficient of Variation 20.0 % (11.5-14.5) Anion Gap 9.0 mmol/L (3-11) Est Creatinine Clear Calc Drug Dose 107.7 ml/min Estimated GFR () 138.7 Estimated GFR (Non- 119.6 BUN/Creatinine Ratio 65.8 (10-20) Calcium Level 8.4 mg/dl (8.5-10.1) Magnesium Level 2.0 mg/dl (1.8-2.4) Date/Time Source Procedure Growth Status 11/28/16 11:32 Blood Blood Culture Pending Received 11/28/16 11:00 Urine,Catheterized Urine Culture - Preliminary NO GROWTH - LESS THAN 1,000 COLONIES/... Resulted 11/28/16 15:40 Ulcer Sacrum Gram Stain - Final Resulted 11/28/16 15:40 Wound Culture - Preliminary Gram Negative Bacilli Resulted Last 24 Hours Test 11/29/16 06:56 White Blood Count 9.63 K/uL Red Blood Count 4.15 M/uL Hemoglobin 9.4 g/dL Hematocrit 31.1 % Mean Corpuscular Volume 74.9 fL Mean Corpuscular Hemoglobin 22.7 pg Mean Corpuscular Hemoglobin Concent 30.2 g/dl RDW Standard Deviation 54.9 fL RDW Coefficient of Variation 20.0 % Platelet Count 335 K/uL Mean Platelet Volume 9.0 fL Sodium Level 142 mmol/L Potassium Level 3.4 mmol/L Chloride Level 110 mmol/L Carbon Dioxide Level 23 mmol/L Anion Gap 9.0 mmol/L Blood Urea Nitrogen 24 mg/dl Creatinine 0.36 mg/dl Est Creatinine Clear Calc Drug Dose 107.7 ml/min Estimated GFR () 138.7 Estimated GFR (Non- 119.6 BUN/Creatinine Ratio 65.8 Random Glucose 106 mg/dl Calcium Level 8.4 mg/dl Magnesium Level 2.0 mg/dl Assessment & Plan 76 yo M presents with worsening unstagable sacral decubitus ulcer after lying in bed x 6 weeks and and worsening pneumonia symptoms despite Augmentin as outpatient. 1. Acute hypoxia 2/2 pneumonia with concern for poss aspiration pneumonia in setting of prior stroke-ADMINISTRATION VICE PRESIDENT evaluated him and believes he is aspirating. Palliative care consult ordered. Called family and left my cell phone number but did not hear back from anyone. Cont with current Levaquin and Zosyn as patient is improving. Strict NPO for now. Maintenance IVF running. 2. Unstagable sacral decubitus ulcer-wound culture growing GNB. Pt not septic at this time. Denies pain. MRI reveals no evidence of osteo at this time. CASSIDY mccall. Wound care provider consult. 3. R knee pain-uncertain of chronicity. Pt is nonverbal without family present today. 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 Will schedule IV Tylenol at this time as patient unable to fully communicate when he is in pain. 4. h/o CVA-pt was recently out of ASA 81 and was not taking it for two weeks. Holding while strict NPO at this time and while figuring out ultimate wishes with family and patient. Notably not on statin therapy. 5. Hypothyroidism-cont IV synthroid as inpatient while NPO. 6. Depression-holding Paxil 7. cachexia-Catalyst Concentration Operator consult. DVT PROPHYLAXIS Heparin SQ CODE STATUS Full code per Daughter Nikkie DISPOSITION Med/ surg Lives at home with family, daughter interested in placement PT/ OT, social service consults Norma Valdez DO [facility] Hospitalist Current Inpatient Medications: Current Inpatient Medications Medications (Trade) Dose Ordered Sig/Juan Route Start Time Stop Time Status Last Admin Dose Admin Ondansetron HCl (Zofran Inj) 4 mg Q6H PRN IV 11/28/16 15:30 12/28/16 15:29 Heparin Sodium (Porcine) (Heparin Sq 5000 Unit/0.5ml) 5,000 unit Q12H SQ 11/28/16 20:00 12/28/16 19:59 11/29/16 08:08 5,000 UNIT Bisacodyl (Dulcolax Supp) 10 mg TuSa@0900 AR 11/29/16 09:00 12/29/16 08:59 11/29/16 08:13 10 MG Piperacillin Sod/ Tazobactam Sod (Consult) 1 ea UD PRN N/A 11/28/16 19:26 12/28/16 19:25 Levofloxacin 750 mg/Prmx 150 ml @ 100 mls/hr Q24H IV 11/29/16 14:00 12/05/16 13:59 Piperacillin Sod/ Tazobactam Sod 3.375 gm/Dextrose 115 ml @ 28.75 mls/ hr Q8H IV 11/28/16 20:00 12/05/16 19:59 11/29/16 12:19 28.75 MLS/HR Acetaminophen 650 mg/Empty Bag 65 ml @ 260 mls/hr Q6H IV 11/29/16 16:29 12/28/16 16:44 UNV
[2016-11-29 23:34] VITALS: BP 132/67; PULSE 80; TEMP 36.6; O2SAT 93
[2016-11-30] VITALS (7 sets, daily range): BP systolic 113–115; BP diastolic 52–55; PULSE 63–73; TEMP 36.5–36.7; O2SAT 90–100
[2016-11-30] MEDS: ACETAMINOPHEN IV 650 MG in EMPTY BAG 0 ML IV SCH ×5 (00:25→23:22)
[2016-11-30] MEDS: PIPERACILL/TAZOBAC IV 3.375 GM in DEXTROSE 5% 100ML IV SCH ×3 (03:41→19:42)
[2016-11-30 06:35] LABS: HEMATOCRIT 29.3 % (42-52); MEAN CELL VOLUME 74.2 fL (80-100); MEAN CORPUSCULAR HGB CONC 31.1 g/dl (32-36); MEAN PLATELET VOLUME 8.8 fL (7.4-10.4); PLATELET COUNT 346 K/uL (130-400); RED BLOOD COUNT 3.95 M/uL (4.7-6.1); WHITE BLOOD COUNT 7.05 K/uL (4.8-10.8)
[2016-11-30 07:08] LABS: BUN/CREATININE RATIO 52.2 (10-20); CALCIUM 7.9 mg/dl (8.5-10.1); CREATININE 0.37 mg/dl (0.60-1.40); MAGNESIUM 2.1 mg/dl (1.8-2.4); PHOSPHORUS 2.2 mg/dl (2.5-4.9); POTASSIUM 2.9 mmol/L (3.5-5.1)
[2016-11-30] MEDS: ALBUT/IPRATROP 3MG/0.5MG NEB 3 ML VIAL INH SCH ×4 (07:18→20:05)
[2016-11-30] MEDS: LEVOTHYROXINE SODIUM INJ 25 MCG in SYRINGE 0 ML IV SCH (09:17)
[2016-11-30] MEDS: HEPARIN SOD 5000 UNIT/0.5 ML CARP SQ SCH ×2 (09:18→19:45)
[2016-11-30] MEDS ORDERED: POTASSIUM CHLORIDE IV ONE (09:30)
[2016-11-30] MEDS ORDERED: SODIUM CHLORIDE 0.9% IV ONE (09:30)
[2016-11-30] MEDS: LEVOFLOXACIN / D5W 750 MG in PREMIXED IN D5W 150 ML IV SCH (14:26)
[2016-11-30] MEDS: D5NSS + 20MEQ KCL 1,000 ML IV SCH (18:48)
--- NOTE | 2016-11-30 23:51 | Progress Note ---
Medicine Progress Note Date & Time of Visit: Nov 30, 2016 at 23:11. Subjective continue strict NPO reports pain in his knee is controlled. still awaiting wound care evaluation declines PEG tube and states that he prefers a pureed diet Objective Last 8 Hrs Date Time Temp Pulse Resp B/P (MAP) Pulse Ox O2 Delivery O2 Flow Rate FiO2 11/30/16 20:05 65 16 98 Nasal Cannula 2.0 11/30/16 20:00 Nasal Cannula 2.0 11/30/16 16:15 36.5 73 16 115/55 (75) 99 Nasal Cannula 2.0 11/30/16 15:30 99 Physical Exam: GEN: cachectic, nonverbal, in no acute distress, alert and appropriate, following commands HEENT: NC/AT, PERRL, normal sclerae, mucous membranes are dry, NC in place CARDIO: reg rate, S1/2 heard without m/g/r LUNGS: CTA bilaterally ABD: soft, non-tender, non-distended, no rebound or guarding, +BS BACK: 3-4cm unstageable sacral decubitus ulcer. EXTREMITY: RP and DP palpable 2+ bilat, no LE swelling or edema, extremities are warm and well-perfused, RLE and RUE are contracted. R knee is strained from flexed position of leg and therefore exam is very limited. No obvious effusion or trauma to the knee is seen. NEURO: limited as patient is nonverbal, following commands somewhat, contracted in RLE and RUE as above. Awake, alert and trying to communicate. MUSC: wasted musculature, limited strength except in LUE and LLE SKIN: warm and dry Laboratory Results: 11/30/16 06:12 11/30/16 06:12 Test 11/28/16 11:00 11/28/16 11:28 11/28/16 11:37 11/30/16 06:12 Urine Color DK YELLOW Urine Appearance CLEAR (CLEAR) Urine pH 5.0 (4.5-7.5) Urine Specific [place] 1.034 (1.000-1.030) Urine Protein 1+ (NEG) Urine Glucose (UA) NEG (NEG) Urine Ketones TRACE (NEG) Urine Occult Blood NEG (NEG) Urine Nitrite NEG (NEG) Urine Bilirubin NEG (NEG) Urine Urobilinogen NEG (NEG) Urine Leukocyte Esterase NEG (NEG) Urine WBC (Auto) 1-5 /hpf (0-5) Urine RBC (Auto) 0-4 /hpf (0-4) Urine Hyaline Casts (Auto) 1-5 /lpf (0-5) Urine Epithelial Cells (Auto) 0-5 /lpf (0-5) Urine Bacteria (Auto) NEG (NEG) Immature Granulocyte % (Auto) 0.5 % White Blood Count 11.66 K/uL (4.8-10.8) Red Blood Count 4.64 M/uL (4.7-6.1) 3.95 M/uL (4.7-6.1) Hemoglobin 11.3 g/dL (14.0-18.0) Hematocrit 34.4 % (42-52) Mean Corpuscular Volume 74.1 fL (80-100) 74.2 fL (80-100) Mean Corpuscular Hemoglobin 24.4 pg (25-34) 23.0 pg (25-34) Mean Corpuscular Hemoglobin Concent 32.8 g/dl (32-36) 31.1 g/dl (32-36) Platelet Count 408 K/uL (130-400) Mean Platelet Volume 9.3 fL (7.4-10.4) 8.8 fL (7.4-10.4) Neutrophils (%) (Auto) 81.7 % Lymphocytes (%) (Auto) 8.1 % Monocytes (%) (Auto) 8.0 % Eosinophils (%) (Auto) 1.4 % Basophils (%) (Auto) 0.3 % Neutrophils # (Auto) 9.53 K/uL (1.4-6.5) Lymphocytes # (Auto) 0.95 K/uL (1.2-3.4) Monocytes # (Auto) 0.93 K/uL (0.11-0.59) Eosinophils # (Auto) 0.16 K/uL (0-0.5) Basophils # (Auto) 0.03 K/uL (0-0.2) Immature Granulocyte # (Auto) 0.06 K/uL (0.00-0.02) Prothrombin Time 11.4 SECONDS (9.0-12.0) Prothromb Time International Ratio 1.1 (0.9-1.1) Activated Partial Thromboplast Time 29.2 SECONDS (21.0-31.0) Partial Thromboplastin Ratio 1.1 Total Bilirubin 0.3 mg/dl (0.2-1) Direct Bilirubin 0.1 mg/dl (0-0.2) Aspartate Amino Transf (AST/SGOT) 20 U/L (15-37) Alanine Aminotransferase (ALT/SGPT) 15 U/L (12-78) Alkaline Phosphatase 86 U/L (45-117) Total Creatine Kinase 339 U/L (39-308) Creatine Kinase MB 1.1 ng/ml (0.5-3.6) Creatine Kinase MB Ratio 0.3 (0-3.0) Troponin I < 0.015 ng/ml (0-0.045) Total Protein 8.1 gm/dl (6.4-8.2) Albumin 2.7 gm/dl (3.4-5.0) Lipase 152 U/L (73-393) Thyroid Stimulating Hormone (TSH) 2.030 uIu/ml (0.300-4.500) Bedside Lactic Acid Venous 1.42 mmol/L (0.90-1.70) RDW Standard Deviation 54.5 fL (36.4-46.3) RDW Coefficient of Variation 19.8 % (11.5-14.5) Anion Gap 10.0 mmol/L (3-11) Est Creatinine Clear Calc Drug Dose 104.8 ml/min Estimated GFR () 137.1 Estimated GFR (Non- 118.3 BUN/Creatinine Ratio 52.2 (10-20) Calcium Level 7.9 mg/dl (8.5-10.1) Phosphorus Level 2.2 mg/dl (2.5-4.9) Magnesium Level 2.1 mg/dl (1.8-2.4) Date/Time Source Procedure Growth Status 11/28/16 11:32 Blood Blood Culture - Preliminary NO GROWTH TO DATE. Resulted 11/28/16 11:00 Urine,Catheterized Urine Culture - Final NO GROWTH - LESS THAN 1,000 COLONIES/ML Complete 11/28/16 15:40 Ulcer Sacrum Gram Stain - Final Complete 11/28/16 15:40 Wound Culture - Final Morganella Morganii Complete Last 24 Hours Test 11/30/16 06:12 White Blood Count 7.05 K/uL Red Blood Count 3.95 M/uL Hemoglobin 9.1 g/dL Hematocrit 29.3 % Mean Corpuscular Volume 74.2 fL Mean Corpuscular Hemoglobin 23.0 pg Mean Corpuscular Hemoglobin Concent 31.1 g/dl RDW Standard Deviation 54.5 fL RDW Coefficient of Variation 19.8 % Platelet Count 346 K/uL Mean Platelet Volume 8.8 fL Sodium Level 140 mmol/L Potassium Level 2.9 mmol/L Chloride Level 109 mmol/L Carbon Dioxide Level 21 mmol/L Anion Gap 10.0 mmol/L Blood Urea Nitrogen 19 mg/dl Creatinine 0.37 mg/dl Est Creatinine Clear Calc Drug Dose 104.8 ml/min Estimated GFR () 137.1 Estimated GFR (Non- 118.3 BUN/Creatinine Ratio 52.2 Random Glucose 93 mg/dl Calcium Level 7.9 mg/dl Phosphorus Level 2.2 mg/dl Magnesium Level 2.1 mg/dl Assessment & Plan 76 yo M presents with worsening unstagable sacral decubitus ulcer after lying in bed x 6 weeks and and worsening pneumonia symptoms despite Augmentin as outpatient. Pain in knee is better after scheduled Tylenol ordered. Per daughter, she states that his R leg has only been contractures like this for about 1-2 weeks when he stopped having regular access to beer. She states that he was tolerating a pureed diet until just a few weeks ago. She reports that he still smokers 3-6 cigarettes daily and has 2-3 beer s daily. She is asking for him to go to [facility] only because she feels he has good rehab potential and states that she has had a bad experience with a senior care in the past and " he is not going there." 1. Acute hypoxia 2/2 pneumonia with concern for poss aspiration pneumonia in setting of prior stroke-FOSTER CARE WORKER evaluated him and believes he is aspirating. Palliative care consult ordered. Called daughter to discuss progrnosis for 30 minutes. She wants the PEG tube which is in clear conflict with what the patient wants. z Cont with current Levaquin and Zosyn as patient is improving. Strict NPO for now. Maintenance IVF running. 2. Unstagable sacral decubitus ulcer-wound culture growing Morganella species sensitive to Zosyn. Awaiting wound care provider recs prior to narrowing spectrum. Pt not septic at this time. Denies pain. MRI reveals no evidence of osteo at this time. EHDAGO mccall. Wound care provider consult. 3. R knee pain-uncertain of chronicity. Pt is nonverbal without family present today. 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 Will schedule IV Tylenol at this time as patient unable to fully communicate when he is in pain. 4. h/o CVA-pt was recently out of ASA 81 and was not taking it for two weeks. Holding while strict NPO at this time and while figuring out ultimate wishes with family and patient. Notably not on statin therapy. 5. Hypothyroidism-cont IV synthroid as inpatient while NPO. 6. Depression-holding Paxil 7. cachexia-Bleach Plant Operator consult. 8. Knee pain-likely 2/2 subacute contracture. Scheduled tylenol yesterday with resolution of pain per patient today. 9. Anemia of chronic disease-no indication for transfer at this time. DVT PROPHYLAXIS Heparin SQ CODE STATUS Full code per Daughter Nikkie DISPOSITION: Per Nikkie (daughter) she wants him to be full code and only to go to [facility] because of a bad experience she had with a senior care in the past. She also wants him to have a PEG tube placed while undergoing speech therapy and rehab and he told me today that he doesn't want this and would instead prefer to continue on his pureed diet for comfort. She states that he doesn't know what he is talking about and appears to be on a wish and doing behaviors to hasten his own . She is requesting a mental health consult even though he has not been suicidal and is on SSRI. I am in agreement for assistance with proving competency to make his own decisions. Additionally she asks for a Networks Computer Consultant consult and I discussed the reason for the palliative lean process deployment consultant. She would like to discuss the PEG tube idea with her brother and then with her father tomorrow. Med/ surg Lives at home with family, daughter interested in placement PT/ OT, social service consults Norma Valdez DO [facility] Hospitalist Current Inpatient Medications: Current Inpatient Medications Medications (Trade) Dose Ordered Sig/Juan Route Start Time Stop Time Status Last Admin Dose Admin Ondansetron HCl (Zofran Inj) 4 mg Q6H PRN IV 11/28/16 15:30 12/28/16 15:29 Heparin Sodium (Porcine) (Heparin Sq 5000 Unit/0.5ml) 5,000 unit Q12H SQ 11/28/16 20:00 12/28/16 19:59 11/30/16 19:45 5,000 UNIT Bisacodyl (Dulcolax Supp) 10 mg TuSa@0900 MN 11/29/16 09:00 12/29/16 08:59 11/29/16 08:13 10 MG Piperacillin Sod/ Tazobactam Sod (Consult) 1 ea UD PRN N/A 11/28/16 19:26 12/28/16 19:25 Levofloxacin 750 mg/Prmx 150 ml @ 100 mls/hr Q24H IV 11/29/16 14:00 12/05/16 13:59 11/30/16 14:26 100 MLS/HR Piperacillin Sod/ Tazobactam Sod 3.375 gm/Dextrose 115 ml @ 28.75 mls/ hr Q8H IV 11/28/16 20:00 12/05/16 19:59 11/30/16 19:42 28.75 MLS/HR Acetaminophen 650 mg/Empty Bag 65 ml @ 260 mls/hr Q6H IV 11/29/16 18:00 12/28/16 17:59 11/30/16 18:01 260 MLS/HR Albuterol/ Ipratropium (Duoneb) 3 ml QIDR INH 11/30/16 08:00 12/30/16 07:59 11/30/16 20:05 3 ML Levothyroxine Sodium 25 mcg/ Syringe 1.25 ml @ 2 mls/min DAILY@09 IV 11/30/16 09:00 12/30/16 08:59 11/30/16 09:17 2 MLS/MIN Potassium Chloride/Dextrose/ Sod Cl 1,000 ml @ 100 mls/hr Q10H IV 11/30/16 18:30 12/02/16 00:29 11/30/16 18:48 100 MLS/HR
[2016-12-01] VITALS (10 sets, daily range): BP systolic 131–160; BP diastolic 61–71; PULSE 62–77; TEMP 36.2–36.4; O2SAT 92–100
[2016-12-01] MEDS: PIPERACILL/TAZOBAC IV 3.375 GM in DEXTROSE 5% 100ML IV SCH ×3 (04:06→20:51)
[2016-12-01] MEDS: D5NSS + 20MEQ KCL 1,000 ML IV SCH ×2 (04:07→14:03)
[2016-12-01 05:39] LABS: HEMATOCRIT 26.3 % (42-52); MEAN CELL VOLUME 74.5 fL (80-100); MEAN CORPUSCULAR HEMOGLOBIN 24.4 pg (25-34); MEAN CORPUSCULAR HGB CONC 32.7 g/dl (32-36); MEAN PLATELET VOLUME 8.8 fL (7.4-10.4); PLATELET COUNT 306 K/uL (130-400); RED BLOOD COUNT 3.53 M/uL (4.7-6.1); WHITE BLOOD COUNT 7.97 K/uL (4.8-10.8)
[2016-12-01] MEDS: ACETAMINOPHEN IV 650 MG in EMPTY BAG 0 ML IV SCH ×3 (05:43→18:37)
[2016-12-01 06:04] LABS: BUN/CREATININE RATIO 37.1 (10-20); CALCIUM 7.9 mg/dl (8.5-10.1); CREATININE 0.37 mg/dl (0.60-1.40); MAGNESIUM 1.9 mg/dl (1.8-2.4); PHOSPHORUS 1.9 mg/dl (2.5-4.9); POTASSIUM 3.3 mmol/L (3.5-5.1)
[2016-12-01] MEDS: ALBUT/IPRATROP 3MG/0.5MG NEB 3 ML VIAL INH SCH ×4 (07:26→19:51)
--- NOTE | 2016-12-01 07:43 | Clinical Documentation Query ---
VINCE Daigle : CLINICAL DOCUMENTATION QUERIES QUERY 1 OF 2 Patient is a 76 year old male admitted for evaluation and treatment of possible aspiration pneumonia. Documentation includes "unstagable sacral decubitus ulcer". While this is a defined and accepted documentation format of pressure ulcers, it fails to recognize the possible/likely degree of injury present. Definitions are provided below, outlining the fact that unstageable ulcers, by definition, are stage 3 or 4. As appropriate, consider documentation as suggested below to capture the severity associated with this wound. In your clinical opinion is this patient being managed for: (x ) Pressure ulcer of sacral region, stage 3 or 4. ( ) Not Agree ( ) Other explanation of clinical findings (Please Explain) ( ) Unable to determine (Please Define) ( ) Need to Discuss The medical record reflects the following clinical findings, treatment, and risk factors. Clinical Indicators: As above Treatment: WOCN consultation, dietary consult, JUNIOR QA ANALYST consultation, serial labs Risk Factors: Age, CVA, malnutrition, limited mobility Pressure Ulcer Stages/Categories Suspected Deep Tissue Injury: Purple or maroon localized area of discolored intact skin or blood-filled blister due to damage of underlying soft tissue from pressure and/or shear. The area may be preceded by tissue that is painful, firm, mushy, boggy, warmer or cooler as compared to adjacent tissue. Further description: Deep tissue injury may be difficult to detect in individuals with dark skin tones. Evolution may include a thin blister over a dark wound bed. The wound may further evolve and become covered by thin eschar.Evolution may be rapid exposing additional layers of tissue even with optimal treatment. Stage I: Intact skin with non-blanchable redness of a localized area usually over a bony prominence. Darkly pigmented skin may not have visible blanching; its color may differ from the surrounding area. Further description: The area may be painful, firm, soft, warmer or cooler as compared to adjacent tissue. Stage I may be difficult to detect in individuals with dark skin tones. May indicate "at risk" persons (a heralding sign of risk) Stage II: Partial thickness loss of dermis presenting as a shallow open ulcer with a red pink wound bed, without slough. May also present as an intact or open/ruptured serum-filled blister. Further description: Presents as a shiny or dry shallow ulcer without slough or bruising.* This stage should not be used to describe skin tears, tape lara, perineal dermatitis, maceration or excoriation. *Bruising indicates suspected deep tissue injury Stage III: Full thickness tissue loss. Subcutaneous fat may be visible but bone, tendon or muscle are not exposed.Slough may be present but does not obscure the depth of tissue loss. May include undermining and tunneling. Further description: The depth of a stage III pressure ulcer varies by anatomical location. The bridge of the nose, ear, occiput and malleolus do not have subcutaneous tissue and stage III ulcers can be shallow. In contrast, areas of significant adiposity can develop extremely deep stage III pressure ulcers. Bone/tendon is not visible or directly palpable. Stage IV: Full thickness tissue loss with exposed bone, tendon or muscle. Slough or eschar may be present on some parts of the wound bed. Often include undermining and tunneling. Further description: The depth of a stage IV pressure ulcer varies by anatomical location. The bridge of the nose, ear, occiput and malleolus do not have subcutaneous tissue and these ulcers can be shallow. Stage IV ulcers can extend into muscle and/or supporting structures (e.g., fascia, tendon or joint capsule) making osteomyelitis possible. Exposed bone/tendon is visible or directly palpable. Unstageable: Full thickness tissue loss in which the base of the ulcer is covered by slough (yellow, edgar, harris, green or brown) and/or eschar (edgar, brown or black) in the wound bed. Further description: Until enough slough and/or eschar is removed to expose the base of the wound, the true depth, and therefore stage, cannot be determined. Stable (dry, adherent, intact without erythema or fluctuance) eschar on the heels serves as "the body's natural (biological) cover" and should not be removed. QUERY 2 OF 2 History of CVA with residual aphasia, left sided weakness, and aspiration. JUNIOR QA ANALYST evaluation demonstrated overt aspiration, recommending strict NPO. Possible comfort feeding to continue. Palliative care consultation. BMI 16.3 kg/m*m. Serum creatinine 0.37 mg/dl. Serum albumin 2.7 g/dl. Consider documentation as suggested below as clinically appropriate. Thank you. In your clinical opinion is this patient being managed for: ( ) Severe protein-calorie malnutrition ( ) Not Agree ( ) Other explanation of clinical findings (Please Explain) ( ) Unable to determine (Please Define) ( ) Need to Discuss The medical record reflects the following clinical findings, treatment, and risk factors. Clinical Indicators: As above Treatment: Speech evaluation, GI, palliative care, dietary consultations Risk Factors: CVA with dysphagia Please clarify and document your clinical opinion in the progress notes and discharge summary. Terms such as "probable", "suspected", "likely", "questionable", "possible", or "still to be ruled out" are acceptable. Please clarify and document your clinical opinion in the progress notes and discharge summary. Terms such as "probable", "suspected", "likely", "questionable", "possible", or "still to be ruled out" are acceptable. IF IN AGREEMENT, YOU MUST DOCUMENT ABOVE DIAGNOSTIC STATEMENT IN DAILY PROGRESS NOTES AND DISCHARGE SUMMARY. This document is not part of the patient's record. Thank You, Tate Hayes, RN [phone]
[2016-12-01] MEDS: THIAMINE HCL INJ 100 MG in SYRINGE 9 ML IV SCH (08:04)
[2016-12-01] MEDS: HEPARIN SOD 5000 UNIT/0.5 ML CARP SQ SCH (08:05)
[2016-12-01] MEDS ORDERED: SODIUM PHOSPHATE 3 MMOL/1 ML INFUSION IV STA (08:54)
--- NOTE | 2016-12-01 09:58 | Gastrointestinal Consultation ---
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 Pt is seen and evaluated , chart reviewed. There is no family at bedside, history is obtained by pt. He tells me he is not agreeable to a PEG tube. Pt tells me he can swallow, shakes head no to painful swallowing. When I ask him numerous times if he would consider a PEG tube, he closes his eyes and states no. I asked him if I could discuss PEG tubes with him, and he was agreeable to this. When I ask him if he is hungry and wants to eat, he tells me yes. He tells me he had a PEG tube in the past, and is not agreeable to another. ROS was limited, but reviewed as below. CT abd 11/28/16: very limited study secondary to patient positioning and lack of contrast. Wall thickening of the rectum with associated moderate rectal stool volume suggests stercoral proctitis with associated constipation. Cholelithiasis without CT evidence of acute cholecystitis. Left greater than right bilateral lower lobe groundglass and consolidative opacities are suspicious for pneumonia or aspiration pneumonitis. Additional incidental findings as above. Past Medical/Surgical History Medical Problems: (1) Colitis Status: Acute (2) Contusion of foot, left Status: Acute (3) Contusion of foot, right Status: Acute (4) Dehydration Status: Acute Past Medical History: depression, GERD, hyperlipidemia, CAD, HTN, hypothyroidism, neurogenic bladder, osteoarthritis, h/o CVA 2004, h/o esophageal CA Past Surgical History: H/O tracheostomy, History of right hip replacement, Hx PEG tube, S/P hemorrhoidectomy Family History Diabetes mellitus MOTHER Social History Smoking Status: Current Every Day Smoker Marital Status: Housing Status: lives alone Occupation Status: disabled Allergies Coded Allergies: No Known Allergies (Unverified , 11/28/16) Current Medications Home Meds and Scripts Medications Dose Route/Sig Max Daily Dose Days Date Category Dose Instructions Aspirin EC Low Dose (Aspirin) 81 Mg Ectab 81 Mg PO DAILY 11/28/16 Reported Dulcolax (Bisacodyl) 10 Mg Sup 1 Supp DC UD 11/28/16 Reported Thursday and Thursday Vitamin D-1000 (Cholecalciferol) 1,000 Unit Tab 1 Tab PO DAILY 11/28/16 Reported Augmentin 875-125 mg (Amoxicillin & Pot Clavulanate) 1 Tab Tab 1 Tab PO BID 11/28/16 Reported Levothyroxine Sodium 100 Mcg Tab 75 Mcg PO DAILY 90 08/07/16 Reported Neurontin (Gabapentin) 100 Mg Cap 200 Mg PO TID 08/07/16 Reported Ultram (Tramadol HCl) 50 Mg Tab 50 Mg PO Q4H PRN 11/10/13 Reported Paxil (Paroxetine HCl) 20 Mg Tab 20 Mg PO DAILY 11/03/13 Reported Review of Systems Constitutional: + weight loss, No fever Respiratory: No cough, No shortness of breath Cardiac: No chest pain Abdomen: No pain, No nausea, No vomiting, No diarrhea, No constipation, No GI bleeding Physical Exam Date Time Temp Pulse Resp B/P (MAP) Pulse Ox O2 Delivery O2 Flow Rate FiO2 12/01/16 08:39 100 Room Air 12/01/16 08:00 100 Room Air 2.0 12/01/16 07:57 36.2 70 17 131/67 (88) 100 Room Air 12/01/16 07:51 36.4 65 16 148/71 (96) 100 2.0 12/01/16 07:26 62 16 98 Nasal Cannula 2.0 12/01/16 00:48 36.3 69 18 158/61 (93) 98 Room Air 12/01/16 00:08 Nasal Cannula 2.0 11/30/16 20:05 65 16 98 Nasal Cannula 2.0 11/30/16 20:00 Nasal Cannula 2.0 11/30/16 16:15 36.5 73 16 115/55 (75) 99 Nasal Cannula 2.0 11/30/16 15:30 99 11/30/16 15:11 68 16 96 Nasal Cannula 2.0 11/30/16 11:15 63 16 90 Nasal Cannula 2.0 General Appearance: + mild distress (chronically ill appearing male, no family at bedisde, resting upright in bed) Eyes: PERRL ENT: hearing grossly normal Neck: supple Respiratory/Chest: no respiratory distress, no accessory muscle use, + decreased breath sounds Cardiovascular: regular rate, rhythm, no murmur Abdomen: normal bowel sounds, non tender, soft, no organomegaly Neurologic/Psych: alert, oriented x 3 (answer questions appropriately, and appears to provide accurate history from review of records) Skin: warm/dry Laboratory Results Last 24 Hours Test 12/01/16 05:13 White Blood Count 7.97 K/uL Red Blood Count 3.53 M/uL Hemoglobin 8.6 g/dL Hematocrit 26.3 % Mean Corpuscular Volume 74.5 fL Mean Corpuscular Hemoglobin 24.4 pg Mean Corpuscular Hemoglobin Concent 32.7 g/dl RDW Standard Deviation 54.7 fL RDW Coefficient of Variation 20.0 % Platelet Count 306 K/uL Mean Platelet Volume 8.8 fL Sodium Level 141 mmol/L Potassium Level 3.3 mmol/L Chloride Level 112 mmol/L Carbon Dioxide Level 25 mmol/L Anion Gap 4.0 mmol/L Blood Urea Nitrogen 14 mg/dl Creatinine 0.37 mg/dl Est Creatinine Clear Calc Drug Dose 104.8 ml/min Estimated GFR () 137.1 Estimated GFR (Non- 118.3 BUN/Creatinine Ratio 37.1 Random Glucose 163 mg/dl Calcium Level 7.9 mg/dl Phosphorus Level 1.9 mg/dl Magnesium Level 1.9 mg/dl Impression Patient is a 76 year old male w/ history of CVA with residual weakness and worsening dysphagia admitted to [facility] for aspiration pneumonia - GI consulted for PEG tube per family wishes. Today, pt is alert and oriented, he provides a limited history which appears accurate by chart review. Tells me he had a PEG tube before, and he does not want another. I was able to discuss PEG tube with him and he verbalized understanding, including that a PEG tube wont eliminate the risk of aspiration. He tells me he is hungry and he wants to eat, requests mashed potatoes. Plan - MICA LAMINATING MACHINE FEEDER evaluation, diet recommendations from MICA LAMINATING MACHINE FEEDER - please page when family is at bedside so can re-discuss I saw and evaluated the patient. We are asked to evaluate the patient for a feeding tube placement. Upon discussion with the patient he does not wish to have a feeding tube placed at this time. Physical examination Thin male in no obvious distress Impression: Patient with inability to take by mouth well due to prior CVA. The patient does not wish to have a feeding tube placed this time. Recommendations We do not plan to place a feeding tube at this time as the patient does not wish to have this device placed Please call with any questions or concerns
[2016-12-01] MEDS ORDERED: SODIUM PHOSPHATE INJ 15 MMOL in SODIUM CHLORIDE 0.9% 250ML 250 ML IV SCH (10:00)
[2016-12-01] MEDS: POTASSIUM CHLR 10 MEQ / WTR 10 MEQ in PREMIXED WATER 100 ML IV SCH ×2 (10:03→12:49)
[2016-12-01] MEDS: LEVOTHYROXINE SODIUM INJ 25 MCG in SYRINGE 0 ML IV SCH (10:03)
[2016-12-01] MEDS ORDERED: MoRPHine SULFATE 2 MG/ML CARP IV ONE (11:44)
[2016-12-01] MEDS ORDERED: MoRPHine SULFATE 2 MG/ML CARP IV PRN (11:45)
--- NOTE | 2016-12-01 15:15 | Psychiatric Consultation ---
Psychiatric Consultation Date of Service: Dec 01, 2016. 76-year-old male with a history of depression and CVA with residual aphasia and left-sided weakness, who is admitted with aspiration pneumonia. Psychiatry was consulted to evaluate capacity to refuse PEG tube placement. Case reviewed with Dr. Valdez and records reviewed in the EMR. Both the primary attending and the freight flagman have reviewed the recommendations for PEG tube placement with the patient, as well as the potential risks of refusing it. He had repeatedly stated a preference not to have the PEG tube, stating that he wanted to eat, and was aware of the risks of aspiration, pneumonia, and . His daughter then became involved, and stated a preference that he has the PEG tube placed. Thus psychiatry was consulted. Upon entering the patient's room, his daughter is present and stated that she spoke with the patient, and he is now agreeing to the PEG tube. She was asked to leave the room so that he could be assessed. He was asked multiple times if he wanted a PEG tube, and nodded his head yes each time. Dr. Valdez informed, and full capacity evaluation deferred as patient is now agreeing to the recommended treatment.
--- NOTE | 2016-12-01 15:25 | Progress Note ---
Progress Note Date of Service Dec 01, 2016. (Awilda Leggett ., RAFA) Progress Note GI was paged to re-discuss PEG tube as pt now is requesting PEG tube. Family at bedside and discuss about PEG tube. Family voices opinion that goal of PEG tube is to aid in nourishment as he cannot safely and adequately take enough PO. They understand there is still a risk of aspiration with PEG tube. He has had two endoscopically placed PEG tubes in 2004 and a few years prior that were removed as pt no longer wanted them. It was explained to the pt and family that we would have to endoscopically identify good placement for PEG tube. They verbalized understanding. NPO EGD w/ PEG placement No anticoagulation Stop heparin for EGD w/ PEG, can restart on Thursday/ (Awilda Leggett ., RAFA)
[2016-12-01] MEDS: LEVOFLOXACIN / D5W 750 MG in PREMIXED IN D5W 150 ML IV SCH (15:39)
[2016-12-02] VITALS (12 sets, daily range): BP systolic 151–189; BP diastolic 62–84; PULSE 58–80; TEMP 36.3–36.7; O2SAT 93–100
[2016-12-02] MEDS: ACETAMINOPHEN IV 650 MG in EMPTY BAG 0 ML IV SCH ×5 (00:14→23:57)
--- NOTE | 2016-12-02 01:23 | Progress Note ---
Medicine Progress Note Date & Time of Visit: Dec 01, 2016 at 0900. Subjective pt states that he is hungry afebrile and hemodynamically stable overnight nonverbal but communicative Objective Last 8 Hrs Date Time Temp Pulse Resp B/P (MAP) Pulse Ox O2 Delivery O2 Flow Rate FiO2 12/02/16 00:00 36.7 70 18 167/65 (99) 99 Room Air 12/01/16 20:05 Nasal Cannula 2.0 12/01/16 19:53 73 16 95 Room Air Physical Exam: GEN: cachectic, nonverbal, in no acute distress, alert and appropriate, following commands HEENT: NC/AT, PERRL, normal sclerae, mucous membranes are dry, NC in place CARDIO: reg rate, S1/2 heard without m/g/r LUNGS: CTA bilaterally ABD: soft, non-tender, non-distended, no rebound or guarding, +BS BACK: 3-4cm unstageable sacral decubitus ulcer. EXTREMITY: RP and DP palpable 2+ bilat, no LE swelling or edema, extremities are warm and well-perfused, RLE and RUE are contracted. R knee is strained from flexed position of leg and therefore exam is very limited. No obvious effusion or trauma to the knee is seen. NEURO: limited as patient is nonverbal, following commands somewhat, contracted in RLE and RUE as above. Awake, alert and trying to communicate. MUSC: wasted musculature, limited strength except in LUE and LLE SKIN: warm and dry Laboratory Results: 12/01/16 05:13 12/01/16 05:13 Test 11/28/16 11:00 11/28/16 11:28 11/28/16 11:37 12/01/16 05:13 Urine Color DK YELLOW Urine Appearance CLEAR (CLEAR) Urine pH 5.0 (4.5-7.5) Urine Specific [place] 1.034 (1.000-1.030) Urine Protein 1+ (NEG) Urine Glucose (UA) NEG (NEG) Urine Ketones TRACE (NEG) Urine Occult Blood NEG (NEG) Urine Nitrite NEG (NEG) Urine Bilirubin NEG (NEG) Urine Urobilinogen NEG (NEG) Urine Leukocyte Esterase NEG (NEG) Urine WBC (Auto) 1-5 /hpf (0-5) Urine RBC (Auto) 0-4 /hpf (0-4) Urine Hyaline Casts (Auto) 1-5 /lpf (0-5) Urine Epithelial Cells (Auto) 0-5 /lpf (0-5) Urine Bacteria (Auto) NEG (NEG) Immature Granulocyte % (Auto) 0.5 % White Blood Count 11.66 K/uL (4.8-10.8) Red Blood Count 4.64 M/uL (4.7-6.1) 3.53 M/uL (4.7-6.1) Hemoglobin 11.3 g/dL (14.0-18.0) Hematocrit 34.4 % (42-52) Mean Corpuscular Volume 74.1 fL (80-100) 74.5 fL (80-100) Mean Corpuscular Hemoglobin 24.4 pg (25-34) 24.4 pg (25-34) Mean Corpuscular Hemoglobin Concent 32.8 g/dl (32-36) 32.7 g/dl (32-36) Platelet Count 408 K/uL (130-400) Mean Platelet Volume 9.3 fL (7.4-10.4) 8.8 fL (7.4-10.4) Neutrophils (%) (Auto) 81.7 % Lymphocytes (%) (Auto) 8.1 % Monocytes (%) (Auto) 8.0 % Eosinophils (%) (Auto) 1.4 % Basophils (%) (Auto) 0.3 % Neutrophils # (Auto) 9.53 K/uL (1.4-6.5) Lymphocytes # (Auto) 0.95 K/uL (1.2-3.4) Monocytes # (Auto) 0.93 K/uL (0.11-0.59) Eosinophils # (Auto) 0.16 K/uL (0-0.5) Basophils # (Auto) 0.03 K/uL (0-0.2) Immature Granulocyte # (Auto) 0.06 K/uL (0.00-0.02) Prothrombin Time 11.4 SECONDS (9.0-12.0) Prothromb Time International Ratio 1.1 (0.9-1.1) Activated Partial Thromboplast Time 29.2 SECONDS (21.0-31.0) Partial Thromboplastin Ratio 1.1 Total Bilirubin 0.3 mg/dl (0.2-1) Direct Bilirubin 0.1 mg/dl (0-0.2) Aspartate Amino Transf (AST/SGOT) 20 U/L (15-37) Alanine Aminotransferase (ALT/SGPT) 15 U/L (12-78) Alkaline Phosphatase 86 U/L (45-117) Total Creatine Kinase 339 U/L (39-308) Creatine Kinase MB 1.1 ng/ml (0.5-3.6) Creatine Kinase MB Ratio 0.3 (0-3.0) Troponin I < 0.015 ng/ml (0-0.045) Total Protein 8.1 gm/dl (6.4-8.2) Albumin 2.7 gm/dl (3.4-5.0) Lipase 152 U/L (73-393) Thyroid Stimulating Hormone (TSH) 2.030 uIu/ml (0.300-4.500) Bedside Lactic Acid Venous 1.42 mmol/L (0.90-1.70) RDW Standard Deviation 54.7 fL (36.4-46.3) RDW Coefficient of Variation 20.0 % (11.5-14.5) Anion Gap 4.0 mmol/L (3-11) Est Creatinine Clear Calc Drug Dose 104.8 ml/min Estimated GFR () 137.1 Estimated GFR (Non- 118.3 BUN/Creatinine Ratio 37.1 (10-20) Calcium Level 7.9 mg/dl (8.5-10.1) Phosphorus Level 1.9 mg/dl (2.5-4.9) Magnesium Level 1.9 mg/dl (1.8-2.4) Date/Time Source Procedure Growth Status 11/28/16 11:32 Blood Blood Culture - Preliminary NO GROWTH TO DATE. Resulted 11/28/16 11:00 Urine,Catheterized Urine Culture - Final NO GROWTH - LESS THAN 1,000 COLONIES/ML Complete 11/28/16 15:40 Ulcer Sacrum Gram Stain - Final Complete 11/28/16 15:40 Wound Culture - Final Morganella Morganii Complete Last 24 Hours Test 12/01/16 05:13 White Blood Count 7.97 K/uL Red Blood Count 3.53 M/uL Hemoglobin 8.6 g/dL Hematocrit 26.3 % Mean Corpuscular Volume 74.5 fL Mean Corpuscular Hemoglobin 24.4 pg Mean Corpuscular Hemoglobin Concent 32.7 g/dl RDW Standard Deviation 54.7 fL RDW Coefficient of Variation 20.0 % Platelet Count 306 K/uL Mean Platelet Volume 8.8 fL Sodium Level 141 mmol/L Potassium Level 3.3 mmol/L Chloride Level 112 mmol/L Carbon Dioxide Level 25 mmol/L Anion Gap 4.0 mmol/L Blood Urea Nitrogen 14 mg/dl Creatinine 0.37 mg/dl Est Creatinine Clear Calc Drug Dose 104.8 ml/min Estimated GFR () 137.1 Estimated GFR (Non- 118.3 BUN/Creatinine Ratio 37.1 Random Glucose 163 mg/dl Calcium Level 7.9 mg/dl Phosphorus Level 1.9 mg/dl Magnesium Level 1.9 mg/dl Assessment & Plan 76 yo M presents with worsening unstagable sacral decubitus ulcer after lying in bed x 6 weeks and and worsening pneumonia symptoms despite Augmentin as outpatient. Pain in knee is better after scheduled Tylenol ordered. Per daughter, she states that his R leg has only been contractures like this for about 1-2 weeks when he stopped having regular access to beer. She states that he was tolerating a pureed diet until just a few weeks ago. She reports that he still smokers 3-6 cigarettes daily and has 2-3 beer s daily. She is asking for him to go to [facility] only because she feels he has good rehab potential and states that she has had a bad experience with a intermediate in the past and " he is not going there." 1. Acute hypoxia 2/2 pneumonia with concern for poss aspiration pneumonia in setting of prior stroke-DRIVER MERCHANDISER evaluated him and believes he is aspirating. Palliative care consult ordered. Cont with current Levaquin and Zosyn as patient is improving. Strict NPO for now while awaiting GI evaluation for PEG tube. Maintenance IVF running. 2. Pressure ulcer of sacral region, stage 3 or 4-wound culture growing Morganella species sensitive to Zosyn. Awaiting wound care provider recs prior to narrowing spectrum. Pt not septic at this time. Denies pain. MRI reveals no evidence of osteo at this time. EHOB mattress. Wound care provider consult. 3. R knee pain-uncertain of chronicity. Pt is nonverbal without family present today. 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 Will schedule IV Tylenol at this time as patient unable to fully communicate when he is in pain. 4. h/o CVA-pt was recently out of ASA 81 and was not taking it for two weeks. Holding while strict NPO at this time and while figuring out ultimate wishes with family and patient. Notably not on statin therapy. 5. Hypothyroidism-cont IV synthroid as inpatient while NPO. 6. Depression-holding Paxil 7. cachexia-Drug Safety Coordinator consult. 8. Knee pain-likely 2/2 subacute contracture. Scheduled tylenol yesterday with resolution of pain per patient today. 9. Anemia of chronic disease-no indication for transfer at this time. DVT PROPHYLAXIS Heparin SQ CODE STATUS Full code per Daughter Nikkie DISPOSITION: PEG tube placment in am per patient and daughter. Lives at home with family, daughter interested in placement PT/ OT, social service consults Norma Valdez DO [facility] Hospitalist Current Inpatient Medications: Current Inpatient Medications Medications (Trade) Dose Ordered Sig/Juan Route Start Time Stop Time Status Last Admin Dose Admin Ondansetron HCl (Zofran Inj) 4 mg Q6H PRN IV 11/28/16 15:30 12/28/16 15:29 Bisacodyl (Dulcolax Supp) 10 mg TuSa@0900 ID 11/29/16 09:00 12/29/16 08:59 11/29/16 08:13 10 MG Piperacillin Sod/ Tazobactam Sod (Consult) 1 ea UD PRN N/A 11/28/16 19:26 12/28/16 19:25 Levofloxacin 750 mg/Prmx 150 ml @ 100 mls/hr Q24H IV 11/29/16 14:00 12/05/16 13:59 12/01/16 15:39 100 MLS/HR Piperacillin Sod/ Tazobactam Sod 3.375 gm/Dextrose 115 ml @ 28.75 mls/ hr Q8H IV 11/28/16 20:00 12/05/16 19:59 12/01/16 20:51 28.75 MLS/HR Acetaminophen 650 mg/Empty Bag 65 ml @ 260 mls/hr Q6H IV 11/29/16 18:00 12/28/16 17:59 12/02/16 00:14 260 MLS/HR Albuterol/ Ipratropium (Duoneb) 3 ml QIDR INH 11/30/16 08:00 12/30/16 07:59 12/01/16 19:51 3 ML Levothyroxine Sodium 25 mcg/ Syringe 1.25 ml @ 2 mls/min DAILY@09 IV 11/30/16 09:00 12/30/16 08:59 12/01/16 10:03 2 MLS/MIN Thiamine HCl 100 mg/Syringe 10 ml @ 2 mls/min QAM IV 12/01/16 09:00 12/31/16 08:59 12/01/16 08:04 2 MLS/MIN Morphine Sulfate (MoRPHine SULFATE INJ) 2 mg Q4H PRN IV 12/01/16 11:45 12/15/16 11:44
[2016-12-02] MEDS: PIPERACILL/TAZOBAC IV 3.375 GM in DEXTROSE 5% 100ML IV SCH ×3 (03:48→20:41)
[2016-12-02] MEDS: ALBUT/IPRATROP 3MG/0.5MG NEB 3 ML VIAL INH SCH ×4 (07:14→19:51)
[2016-12-02 07:16] LABS: HEMATOCRIT 29.5 % (42-52); MEAN CELL VOLUME 74.3 fL (80-100); MEAN CORPUSCULAR HEMOGLOBIN 22.4 pg (25-34); MEAN CORPUSCULAR HGB CONC 30.2 g/dl (32-36); MEAN PLATELET VOLUME 8.6 fL (7.4-10.4); PLATELET COUNT 334 K/uL (130-400); RED BLOOD COUNT 3.97 M/uL (4.7-6.1); WHITE BLOOD COUNT 8.26 K/uL (4.8-10.8)
[2016-12-02 07:44] LABS: BUN/CREATININE RATIO 25.3 (10-20); CALCIUM 8.1 mg/dl (8.5-10.1); CREATININE 0.32 mg/dl (0.60-1.40); MAGNESIUM 1.7 mg/dl (1.8-2.4); PHOSPHORUS 2.3 mg/dl (2.5-4.9); POTASSIUM 3.4 mmol/L (3.5-5.1)
--- NOTE | 2016-12-02 08:12 | Clinical Documentation Query ---
Dr. [facility] : CLINICAL DOCUMENTATION QUERIES QUERY 1 OF 2 Patient is a 76 year old male admitted for evaluation and treatment of possible aspiration pneumonia. Documentation includes "unstagable sacral decubitus ulcer". While this is a defined and accepted documentation format of pressure ulcers, it fails to recognize the possible/likely degree of injury present. Definitions are provided below, outlining the fact that unstageable ulcers, by definition, are stage 3 or 4. As appropriate, consider documentation as suggested below to capture the severity associated with this wound. In your clinical opinion is this patient being managed for: ( ) Pressure ulcer of sacral region, likely stage 3-4. ( ) Not Agree (+ ) Other explanation of clinical findings (Please Explain) ( ) Unable to determine (Please Define) ( ) Need to Discuss Unstable as per the Attending. Will change if wound care stages otherwise The medical record reflects the following clinical findings, treatment, and risk factors. Clinical Indicators: As above Treatment: WOCN consultation, dietary consult, SALES PROJECT COORDINATOR consultation, serial labs Risk Factors: Age, CVA, malnutrition, limited mobility Pressure Ulcer Stages/Categories Suspected Deep Tissue Injury: Purple or maroon localized area of discolored intact skin or blood-filled blister due to damage of underlying soft tissue from pressure and/or shear. The area may be preceded by tissue that is painful, firm, mushy, boggy, warmer or cooler as compared to adjacent tissue. Further description: Deep tissue injury may be difficult to detect in individuals with dark skin tones. Evolution may include a thin blister over a dark wound bed. The wound may further evolve and become covered by thin eschar.Evolution may be rapid exposing additional layers of tissue even with optimal treatment. Stage I: Intact skin with non-blanchable redness of a localized area usually over a bony prominence. Darkly pigmented skin may not have visible blanching; its color may differ from the surrounding area. Further description: The area may be painful, firm, soft, warmer or cooler as compared to adjacent tissue. Stage I may be difficult to detect in individuals with dark skin tones. May indicate "at risk" persons (a heralding sign of risk) Stage II: Partial thickness loss of dermis presenting as a shallow open ulcer with a red pink wound bed, without slough. May also present as an intact or open/ruptured serum-filled blister. Further description: Presents as a shiny or dry shallow ulcer without slough or bruising.* This stage should not be used to describe skin tears, tape lara, perineal dermatitis, maceration or excoriation. *Bruising indicates suspected deep tissue injury Stage III: Full thickness tissue loss. Subcutaneous fat may be visible but bone, tendon or muscle are not exposed.Slough may be present but does not obscure the depth of tissue loss. May include undermining and tunneling. Further description: The depth of a stage III pressure ulcer varies by anatomical location. The bridge of the nose, ear, occiput and malleolus do not have subcutaneous tissue and stage III ulcers can be shallow. In contrast, areas of significant adiposity can develop extremely deep stage III pressure ulcers. Bone/tendon is not visible or directly palpable. Stage IV: Full thickness tissue loss with exposed bone, tendon or muscle. Slough or eschar may be present on some parts of the wound bed. Often include undermining and tunneling. Further description: The depth of a stage IV pressure ulcer varies by anatomical location. The bridge of the nose, ear, occiput and malleolus do not have subcutaneous tissue and these ulcers can be shallow. Stage IV ulcers can extend into muscle and/or supporting structures (e.g., fascia, tendon or joint capsule) making osteomyelitis possible. Exposed bone/tendon is visible or directly palpable. Unstageable: Full thickness tissue loss in which the base of the ulcer is covered by slough (yellow, edgar, harris, green or brown) and/or eschar (edgar, brown or black) in the wound bed. Further description: Until enough slough and/or eschar is removed to expose the base of the wound, the true depth, and therefore stage, cannot be determined. Stable (dry, adherent, intact without erythema or fluctuance) eschar on the heels serves as "the body's natural (biological) cover" and should not be removed. QUERY 2 OF 2 History of CVA with residual aphasia, left sided weakness, and aspiration. SALES PROJECT COORDINATOR evaluation demonstrated overt aspiration, recommending strict NPO. Possible comfort feeding to continue. Palliative care consultation. BMI 16.3 kg/m*m. Serum creatinine 0.37 mg/dl. Serum albumin 2.7 g/dl. Consider documentation as suggested below as clinically appropriate. Thank you. In your clinical opinion is this patient being managed for: ( + ) Severe protein-calorie malnutrition ( ) Not Agree ( ) Other explanation of clinical findings (Please Explain) ( ) Unable to determine (Please Define) ( ) Need to Discuss The medical record reflects the following clinical findings, treatment, and risk factors. Clinical Indicators: As above Treatment: Speech evaluation, GI, palliative care, dietary consultations Risk Factors: CVA with dysphagia Please clarify and document your clinical opinion in the progress notes and discharge summary. Terms such as "probable", "suspected", "likely", "questionable", "possible", or "still to be ruled out" are acceptable. IF IN AGREEMENT, YOU MUST DOCUMENT ABOVE DIAGNOSTIC STATEMENT IN DAILY PROGRESS NOTES AND DISCHARGE SUMMARY. This document is not part of the patient's record. Thank You, Tate Hayes, GARRY [phone]
[2016-12-02] MEDS: LEVOTHYROXINE SODIUM INJ 25 MCG in SYRINGE 0 ML IV SCH (08:28)
[2016-12-02] MEDS: THIAMINE HCL INJ 100 MG in SYRINGE 9 ML IV SCH (08:28)
[2016-12-02] MEDS: BISACODYL 10 MG SUPP PR SCH (09:00)
[2016-12-02] MEDS ORDERED: POTASSIUM PHOS 3 MMOL/1 ML INFUSION IV STA (11:21)
[2016-12-02] MEDS ORDERED: POTASSIUM PHOSPHATE INJ 21 MMOL in SODIUM CHLORIDE 0.9% 500ML 500 ML IV SCH (11:45)
[2016-12-02] MEDS ORDERED: LIDOCAINE HCL 2% 2 ML VIAL (20MG/ML) ONE (13:28)
[2016-12-02] MEDS ORDERED: PROPOFOL IV EMULSION 10 MG/ML 20 ML VIAL IV ONE (13:28)
--- NOTE | 2016-12-02 13:29 | Endo History and Physical ---
History & Physical Date of Service: Dec 02, 2016. Chief Complaint: Inability to swallow / aspiration Referring Physician: Dr. Valdez History of Present Illness Patient with an inability to swallow due to repeated CVAs. Patient has failed testing by speech pathology and feeding tube has been requested by the patient his family and his primary providers. Past Medical History Reflux, Cancer, Hypertension, CVA/TIA, Depression Past Surgical History Hx Cardiac Surgery: No Hx Abdominal Surgery: No Hx Post-Op Nausea and Vomiting: No Hx Cancer Surgery: No Hx Thoracic Surgery: No Hx Orthopedic: Yes (right hip) Hx Urinary Tract Surgery: No Social History Smoking Status: Current Every Day Smoker Hx Substance Use: No Hx Alcohol Use: Yes (2 beers a day) Allergies Coded Allergies: No Known Allergies (Unverified , 11/28/16) Current Medications Reported Home Medications Medications Dose Route/Sig Max Daily Dose Days Date Category Dose Instructions Aspirin EC Low Dose (Aspirin) 81 Mg Ectab 81 Mg PO DAILY 11/28/16 Reported Dulcolax (Bisacodyl) 10 Mg Sup 1 Supp VA UD 11/28/16 Reported Thursday and Thursday Vitamin D-1000 (Cholecalciferol) 1,000 Unit Tab 1 Tab PO DAILY 11/28/16 Reported Augmentin 875-125 mg (Amoxicillin & Pot Clavulanate) 1 Tab Tab 1 Tab PO BID 11/28/16 Reported Levothyroxine Sodium 100 Mcg Tab 75 Mcg PO DAILY 90 08/07/16 Reported Neurontin (Gabapentin) 100 Mg Cap 200 Mg PO TID 08/07/16 Reported Ultram (Tramadol HCl) 50 Mg Tab 50 Mg PO Q4H PRN 11/10/13 Reported Paxil (Paroxetine HCl) 20 Mg Tab 20 Mg PO DAILY 11/03/13 Reported Vital Signs Weight (Kilograms): 44.300 Height (Feet): 5 Height (Inches): 5.00 Date Time Temp Pulse Resp B/P (MAP) Pulse Ox O2 Delivery O2 Flow Rate FiO2 12/02/16 13:23 36.8 71 20 150/47 (81) 100 Room Air 12/02/16 11:15 73 14 97 Room Air 12/02/16 08:00 99 Nasal Cannula 2.0 12/02/16 07:47 36.3 77 18 172/62 (98) 99 Room Air 12/02/16 07:14 60 14 99 Room Air 12/02/16 00:00 36.7 70 18 167/65 (99) 99 Room Air 12/02/16 00:00 Nasal Cannula 2.0 12/01/16 20:05 Nasal Cannula 2.0 12/01/16 19:53 73 16 95 Room Air 12/01/16 16:56 36.4 77 160/71 (100) 100 Room Air 12/01/16 15:30 77 16 100 Room Air Physical Exam General Appearance: + mild distress Respiratory/Chest: Auscultation: deminished air movement Abdomen: Inspection & Palpation: soft Assessment and Plan Patient has inability to swallow given recurrent aspiration and prior CVAs. The family and patient wished a feeding tube placement with nutritional needs. We discussed the risks and benefits to include bleeding, infection, perforation and repeated aspiration.
--- NOTE | 2016-12-02 13:40 | Palliative Care Consultation ---
Consultation Date of Consultation: Dec 02, 2016. Requesting Physician: Dr Valdez Attending Physician: Dr Valdez Reason for Consultation: Determine goals of care History of Present Illness Pt is a 76 yo male with a h/o CVA with resultant aphasia and dysphagia who was admitted on 11/28 for hypoxia . Home nurse found pt to have sats of 86-87% on RA. Pt was on a pureed diet for the past year. Pt was eating < 50% of his meals and reportedly had a 10# recent weight loss. Pt initially had refused a PEG - he has had a PEG twice in the past- first at age 60 when he was diagnosed with throat cancer for several months during chemo/XRT and again in 2004 after his stroke. He had his last PEG tube removed in Dec 2004. Daughter reports he has been doing well until approx 1 week ago when he started eating less and she noted he was no longer interested in his 1-2 cigarettes a day. She asked him if she needed to call the home nurse and he said "no", but on 11/28 the home nurse noted on her routine visit that he sats were low. He was brought to the ER and admitted. His daughter reports that when he is not feeling well he "gives up". Spoke with pt privately this am and he clearly wished to proceed with PEG placement. He did well, per his daughter, when he was at [facility] after his stroke and hopes that with speech therapy he will be able to swallow better. Daughter reprots gradual decline and weight loss over the past 3 years but has had more rapid weight loss over the past week. Daughter reports that at home she repositions him , but he insists on turning on to his back himself. This is the first time he has had anything more than redness of his skin from pressure. She states she first noted the sacral ulcer 2 weeks ago when it broke open - the opening was the size of her "fingertip" and had a "silver dollar" sized area of redness. She notified his PCP. Wound pictures reviewed - now an approx 4cm X 2 cm open wound with slough - at least a stage 3, appers to have undermining and several satellite areas that likely tunnel to main wound. Pt has contracture of RLE - baclofen was "too strong" and he had loss of use o his other muscles. He sips on 1-2 beer /day and this relaxes his leg to approx 10- 20 degree flexion. Past Medical/Surgical History Medical History: Throat cancer dx age 60, CVA in 2004, CAD, GERD, HTN/HLD, depression, hypothyroid, neurogenic bladder Surgical History: PEG X 2, bx of mass in roof of mouth, trach, R THR, toe straightening surgery with pins. Family History DM Social History Smoking Status: Current Every Day Smoker History of Alcohol Use: Yes (2 beers a day) Marital Status: Housing Status: lives with family Occupation Status: retired, disabled Pt lives with his stepdaughter , her ex- who also suffered a CVA in 2004 and his 19 yo grandson. Review of Systems Constitutional: No fever Eyes: No discharge ENT: No hearing loss Respiratory: + cough Cardiac: No edema Abdomen: + problem reported (decreased appetite), No pain, No nausea Musculoskeletal: + problem reported (R LE contracture) Male : + problem reported (neurogenic bladder) Neurologic: + paralysis, + weakness, + problem reported (aphasia) Psychiatric: + depression symptoms Heme: No abnormal bleeding/bruising Skin: + problem reported (stage 3 or 4 sacral decub) Allergies Coded Allergies: No Known Allergies (Unverified , 11/28/16) Medications Current Inpatient Medications Medications (Trade) Dose Ordered Sig/Juan Route Start Time Stop Time Status Last Admin Dose Admin Ondansetron HCl (Zofran Inj) 4 mg Q6H PRN IV 11/28/16 15:30 12/28/16 15:29 Bisacodyl (Dulcolax Supp) 10 mg TuSa@0900 [place] 11/29/16 09:00 12/29/16 08:59 11/29/16 08:13 10 MG Piperacillin Sod/ Tazobactam Sod (Consult) 1 ea UD PRN N/A 11/28/16 19:26 12/28/16 19:25 Piperacillin Sod/ Tazobactam Sod 3.375 gm/Dextrose 115 ml @ 28.75 mls/ hr Q8H IV 11/28/16 20:00 12/05/16 19:59 12/02/16 12:39 28.75 MLS/HR Acetaminophen 650 mg/Empty Bag 65 ml @ 260 mls/hr Q6H IV 11/29/16 18:00 12/28/16 17:59 12/02/16 12:40 260 MLS/HR Albuterol/ Ipratropium (Duoneb) 3 ml QIDR INH 11/30/16 08:00 12/30/16 07:59 12/02/16 11:15 3 ML Levothyroxine Sodium 25 mcg/ Syringe 1.25 ml @ 2 mls/min DAILY@09 IV 11/30/16 09:00 12/30/16 08:59 12/02/16 08:28 2 MLS/MIN Thiamine HCl 100 mg/Syringe 10 ml @ 2 mls/min QAM IV 12/01/16 09:00 12/31/16 08:59 12/02/16 08:28 2 MLS/MIN Morphine Sulfate (MoRPHine SULFATE INJ) 2 mg Q4H PRN IV 12/01/16 11:45 12/15/16 11:44 Levofloxacin 750 mg/Prmx 150 ml @ 100 mls/hr Q48H IV 12/03/16 14:00 12/05/16 13:59 Potassium Phosphate 21 mmol/ Sodium Chloride 507 ml @ 88 mls/hr TODAY@1145 IV 12/02/16 11:45 12/02/16 17:31 Physical Exam Date Time Temp Pulse Resp B/P (MAP) Pulse Ox O2 Delivery O2 Flow Rate FiO2 12/02/16 13:23 36.8 71 20 150/47 (81) 100 Room Air 12/02/16 11:15 73 14 97 Room Air 12/02/16 08:00 99 Nasal Cannula 2.0 12/02/16 07:47 36.3 77 18 172/62 (98) 99 Room Air 12/02/16 07:14 60 14 99 Room Air 12/02/16 00:00 36.7 70 18 167/65 (99) 99 Room Air 12/02/16 00:00 Nasal Cannula 2.0 12/01/16 20:05 Nasal Cannula 2.0 12/01/16 19:53 73 16 95 Room Air 12/01/16 16:56 36.4 77 160/71 (100) 100 Room Air 12/01/16 15:30 77 16 100 Room Air General Appearance: no apparent distress, + pertinent finding (pt more alert than yesterday, able to nod to questions, smiles, able to say a few words - voice is a whisper) Eyes: EOMI ENT: hearing grossly normal Neck: + pertinent finding (decreased ROM ) Respiratory: no respiratory distress, + decreased breath sounds Cardiovascular: regular rate, rhythm Abdomen: non tender, soft Musculoskeletal: abnormal strength, hypertonicity Neurologic/Psychiatric: alert, + pertinent finding (appears to understand all questions and answers appropriately) Skin: + pertinent finding (sacral decub) Laboratory Results Last 24 Hours Test 12/02/16 07:03 White Blood Count 8.26 K/uL Red Blood Count 3.97 M/uL Hemoglobin 8.9 g/dL Hematocrit 29.5 % Mean Corpuscular Volume 74.3 fL Mean Corpuscular Hemoglobin 22.4 pg Mean Corpuscular Hemoglobin Concent 30.2 g/dl RDW Standard Deviation 55.0 fL RDW Coefficient of Variation 20.0 % Platelet Count 334 K/uL Mean Platelet Volume 8.6 fL Sodium Level 139 mmol/L Potassium Level 3.4 mmol/L Chloride Level 109 mmol/L Carbon Dioxide Level 23 mmol/L Anion Gap 7.0 mmol/L Blood Urea Nitrogen 8 mg/dl Creatinine 0.32 mg/dl Est Creatinine Clear Calc Drug Dose 121.1 ml/min Estimated GFR () 145.5 Estimated GFR (Non- 125.6 BUN/Creatinine Ratio 25.3 Random Glucose 99 mg/dl Calcium Level 8.1 mg/dl Phosphorus Level 2.3 mg/dl Magnesium Level 1.7 mg/dl Assessment & Plan Palliative Performance Scale: 30 % (1) Dysphagia as late effect of cerebrovascular accident (CVA) Status: Chronic Assessment & Plan: increased recently - daughter hopes that speech therapy can improve his swallowing but is realistic that it may not (2) Aspiration pneumonia Status: Acute Assessment & Plan: NPO, on IV antibiotics , for PEG tube today (3) Throat cancer Status: Resolved Assessment & Plan: Diagnosed 15 years ago s/p chemo/XRT (4) Hyperlipidemia Status: Chronic Assessment & Plan: Controlled off statins with diet (5) Depressive Disorder Nec Status: Chronic Assessment & Plan: On Paxil at home (6) Hypothyroidism Status: Chronic Assessment & Plan: On IV synthroid (7) Sacral decubitus ulcer Status: Acute Assessment & Plan: Wound care seeing pt , will need home wound care once discharged Pt is a 76 yo male with h/o throat cancer , CVA in 2004 with residual partial paralysis , aphasia and dysphagia - for PEG tube placement today with plan for speech therapy to improve swallowing . Daughter plans to have his return home. Pt will need continued wound care at home. Daughter has home health already established for pt and has additional help in place. Total time 70 min with > 50 % of time at bedside and discussing POC with daughter
--- NOTE | 2016-12-02 14:19 | GI REPORT ---
Procedure Date: 12/02/2016 1:41 PM Procedure: Upper GI endoscopy Indications: Neurogenic dysphagia, Place PEG due to impaired swallowing, Place PEG due to aspiration risk Medicines: Monitored Anesthesia Care Complications: No immediate complications. Estimated blood loss: Minimal. Estimated Blood Loss: Estimated blood loss was minimal. Procedure: Pre-Anesthesia Assessment: - Prior to the procedure, a History and Physical was performed, and patient medications, allergies and sensitivities were reviewed. The patient's tolerance of previous anesthesia was reviewed. - The risks and benefits of the procedure and the sedation options and risks were discussed with the patient and his daughter who signed his consent. All questions were answered and informed consent was obtained. - Patient identification and proposed procedure were verified prior to the procedure by the physician, the nurse and the apple picker. The procedure was verified in the procedure room. - Pre-procedure physical examination revealed no contraindications to sedation. - ASA Grade Assessment: IV - A patient with severe systemic disease that is a constant threat to life. - After reviewing the risks and benefits, the patient was deemed in satisfactory condition to undergo the procedure. - The anesthesia plan was to use monitored anesthesia care (MAC). - Immediately prior to administration of medications, the patient was re-assessed for adequacy to receive sedatives. - The heart rate, respiratory rate, oxygen saturations, blood pressure, adequacy of pulmonary ventilation, and response to care were monitored throughout the procedure. - The physical status of the patient was re-assessed after the procedure. After obtaining informed consent, the endoscope was passed under direct vision. Throughout the procedure, the patient's blood pressure, pulse, and oxygen saturations were monitored continuously. The scope was introduced through the mouth, and advanced to the second part of duodenum. The upper GI endoscopy was accomplished without difficulty. The patient tolerated the procedure well. Findings: The examined esophagus was normal. Two scars were found in the gastric body consist with his prior PEG tubes. The patient was placed in the supine position for PEG placement. The stomach was insufflated to appose gastric and abdominal herman. A site was located in the body of the stomach with excellent transillumination and manual external pressure for placement. The abdominal wall was marked and prepped in a sterile manner. The area was anesthetized with 4 mL of 1% lidocaine. The trocar needle was introduced through the abdominal wall and into the stomach under direct endoscopic view. A snare was introduced through the endoscope and opened in the gastric lumen. The guide wire was passed through the trocar and into the open snare. The snare was closed around the guide wire. The endoscope and snare were removed, pulling the wire out through the mouth. A skin incision was made at the site of needle insertion. The externally removable 20 Fr Brenton-Cook gastrostomy tube was lubricated. The G-tube was tied to the guide wire and pulled through the mouth and into the stomach. The trocar needle was removed, and the gastrostomy tube was pulled out from the stomach through the skin. The external bumper was attached to the gastrostomy tube, and the tube was cut to remove the guide wire. The final position of the gastrostomy tube was confirmed by relook endoscopy, and skin marking noted to be 2 cm at the external bumper. The final tension and compression of the abdominal wall by the PEG tube and external bumper were checked and revealed that the bumper was moderately tight and mildly deforming the skin. The feeding tube was capped, and the tube site cleaned and dressed. Estimated blood loss was minimal. The examined duodenum was normal. Impression: - Normal esophagus. - Scar in the gastric body. - Normal examined duodenum. - An externally removable PEG placement was successfully completed. Recommendation: - [facility]. - Please follow the post-PEG recommendations including: Nutrition consult for formula and volume, antibiotic ointment to site, change dressing once per day, clean site with soap and water daily and dry thoroughly, may use PEG today for meds and water and may use PEG tomorrow for feedings. Adelaida Woody D.O. Adelaida Woody, 12/02/2016 2:18:18 PM This report has been signed electronically. Note Initiated On: 12/02/2016 1:41 PM I attest to the content of the Intraoperative Record and orders documented therein, exceptions below
--- NOTE | 2016-12-02 14:55 | Wound Consultation: Inpatient ---
Wound Consultation Date of Consultation: Dec 01, 2016. Attending Physician: Danilo Ro M.D. Reason for Consultation: Sacral ulceration History of Present Illness Patient was recently admitted to [facility] for treatment evaluation of aspiration pneumonia. Patient has had a prior history of a CVA and is nonverbal. Patient's family states they're uncertain when the ulceration started but it was prior to the patient's admission. Patient does have a flotation type device on his bed. No other prominent systemic complaints at this time. Family History Diabetes mellitus MOTHER Social History Smoking Status: Current Every Day Smoker Alcohol Use: 1-2 beers per day up until recently Marital Status: Housing Status: lives alone Occupation Status: disabled Allergies Coded Allergies: No Known Allergies (Unverified , 11/28/16) Home Medications Scheduled Amoxicillin & Pot Clavulanate (Augmentin 875-125 mg), 1 TAB PO BID Aspirin (Aspirin EC Low Dose), 81 MG PO DAILY Bisacodyl (Dulcolax), 1 SUPP DE UD Cholecalciferol (Vitamin D-1000), 1 TAB PO DAILY Gabapentin (Neurontin), 200 MG PO TID Levothyroxine Sodium (Levothyroxine Sodium), 75 MCG PO DAILY Paroxetine (Paxil), 20 MG PO DAILY Scheduled PRN Tramadol (Ultram), 50 MG PO Q4H PRN for Pain Inpatient Medications Current Inpatient Medications Medications (Trade) Dose Ordered Sig/Juan Route Start Time Stop Time Status Last Admin Dose Admin Ondansetron HCl (Zofran Inj) 4 mg Q6H PRN IV 11/28/16 15:30 12/28/16 15:29 Bisacodyl (Dulcolax Supp) 10 mg TuSa@0900 [place] 11/29/16 09:00 12/29/16 08:59 11/29/16 08:13 10 MG Piperacillin Sod/ Tazobactam Sod (Consult) 1 ea UD PRN N/A 11/28/16 19:26 12/28/16 19:25 Piperacillin Sod/ Tazobactam Sod 3.375 gm/Dextrose 115 ml @ 28.75 mls/ hr Q8H IV 11/28/16 20:00 12/05/16 19:59 12/02/16 12:39 28.75 MLS/HR Acetaminophen 650 mg/Empty Bag 65 ml @ 260 mls/hr Q6H IV 11/29/16 18:00 12/28/16 17:59 12/02/16 12:40 260 MLS/HR Albuterol/ Ipratropium (Duoneb) 3 ml QIDR INH 11/30/16 08:00 12/30/16 07:59 12/02/16 11:15 3 ML Levothyroxine Sodium 25 mcg/ Syringe 1.25 ml @ 2 mls/min DAILY@09 IV 11/30/16 09:00 12/30/16 08:59 12/02/16 08:28 2 MLS/MIN Thiamine HCl 100 mg/Syringe 10 ml @ 2 mls/min QAM IV 12/01/16 09:00 12/31/16 08:59 12/02/16 08:28 2 MLS/MIN Morphine Sulfate (MoRPHine SULFATE INJ) 2 mg Q4H PRN IV 12/01/16 11:45 12/15/16 11:44 Levofloxacin 750 mg/Prmx 150 ml @ 100 mls/hr Q48H IV 12/03/16 14:00 12/05/16 13:59 Potassium Phosphate 21 mmol/ Sodium Chloride 507 ml @ 88 mls/hr TODAY@1145 IV 12/02/16 11:45 12/02/16 17:31 12/02/16 14:40 88 MLS/HR Review of Systems Further review of systems were deferred at this time due to the patient's chronic nonverbal and mental status. Physical Exam Date Time Temp Pulse Resp B/P (MAP) Pulse Ox O2 Delivery O2 Flow Rate FiO2 12/02/16 14:45 59 16 180/61 (100) 100 Room Air 12/02/16 14:30 57 16 164/59 (94) 100 Room Air 12/02/16 14:15 63 14 148/57 (87) 100 Room Air 12/02/16 13:23 36.8 71 20 150/47 (81) 100 Room Air 12/02/16 11:15 73 14 97 Room Air 12/02/16 08:00 99 Nasal Cannula 2.0 12/02/16 07:47 36.3 77 18 172/62 (98) 99 Room Air 12/02/16 07:14 60 14 99 Room Air 12/02/16 00:00 36.7 70 18 167/65 (99) 99 Room Air 12/02/16 00:00 Nasal Cannula 2.0 12/01/16 20:05 Nasal Cannula 2.0 12/01/16 19:53 73 16 95 Room Air 12/01/16 16:56 36.4 77 160/71 (100) 100 Room Air 12/01/16 15:30 77 16 100 Room Air General: The patient is lying in a hospital bed in no distress. Patient is alert but does not respond appropriately to verbal commands. HEENT: Pupils equal and reactive to light. Sclera clear Chest: CTA in all whipple. No deformity Heart: RRR without murmurs, S3, S4, thrills, rubs or heaves Back: There is presence of a sacral ulcer in the midline measuring 3 x 2 x 0.6 cm. Central slough and some surrounding eschar is noted. No active drainage or odor is present no periwound erythema is noted. No fluctuance is noted to palpation. Skin: No rashes, papules, vesicles, excoriations Laboratory Results Last 24 Hours Test 12/02/16 07:03 White Blood Count 8.26 K/uL Red Blood Count 3.97 M/uL Hemoglobin 8.9 g/dL Hematocrit 29.5 % Mean Corpuscular Volume 74.3 fL Mean Corpuscular Hemoglobin 22.4 pg Mean Corpuscular Hemoglobin Concent 30.2 g/dl RDW Standard Deviation 55.0 fL RDW Coefficient of Variation 20.0 % Platelet Count 334 K/uL Mean Platelet Volume 8.6 fL Sodium Level 139 mmol/L Potassium Level 3.4 mmol/L Chloride Level 109 mmol/L Carbon Dioxide Level 23 mmol/L Anion Gap 7.0 mmol/L Blood Urea Nitrogen 8 mg/dl Creatinine 0.32 mg/dl Est Creatinine Clear Calc Drug Dose 121.1 ml/min Estimated GFR () 145.5 Estimated GFR (Non- 125.6 BUN/Creatinine Ratio 25.3 Random Glucose 99 mg/dl Calcium Level 8.1 mg/dl Phosphorus Level 2.3 mg/dl Magnesium Level 1.7 mg/dl Assessment & Plan Assessment: Stage 3 pressure ulcer sacral region Plan: At this time the site did require debridement. After the application of topical Xylocaine 4% the site was debridement of slough and surrounding eschar with a #5 curette minimal bleeding occurred which was controlled direct pressure. Still AG and gauze changed daily basis. MRI of the lumbosacral spine reveal no evidence of osteomyelitis at this time. Further evaluation over the next 4872 hours to determine if wound VAC therapy as indicated. This represented a non-excisional debridement of less than 20 cm.
--- NOTE | 2016-12-02 15:11 | Anesthesiology Progress Note ---
Anesthesia Post Op Note Date & Time Dec 02, 2016 at 15:10 Vital Signs Pain Intensity: 5.0 Vital Signs Past 12 Hours Date Time Temp Pulse Resp B/P (MAP) Pulse Ox O2 Delivery O2 Flow Rate FiO2 12/02/16 14:49 176/67 (103) 12/02/16 14:45 59 16 180/61 (100) 100 Room Air 12/02/16 14:30 57 16 164/59 (94) 100 Room Air 12/02/16 14:15 63 14 148/57 (87) 100 Room Air 12/02/16 13:23 36.8 71 20 150/47 (81) 100 Room Air 12/02/16 11:15 73 14 97 Room Air 12/02/16 08:00 99 Nasal Cannula 2.0 12/02/16 07:47 36.3 77 18 172/62 (98) 99 Room Air 12/02/16 07:14 60 14 99 Room Air Notes Mental Status: alert / awake / arousable, participated in evaluation Pt Amnestic to Procedure: Yes Nausea / Vomiting: adequately controlled Pain: adequately controlled Airway Patency, RR, SpO2: stable & adequate BP & HR: stable & adequate Hydration State: stable & adequate Anesthetic Complications: no major complications apparent
--- NOTE | 2016-12-02 15:29 | Progress Note ---
Progress Note Date of Service Dec 02, 2016. Progress Note The patient's feeding tube was placed without any difficulty this afternoon. Recommendations Please see endoscopic report for full recommendations Avoid anticoagulation for 24 hours May use PEG for feeding starting on 12/03 May use PEG for medications today Please flush PEG every 4-6 hours with 60 mL of water Please have the PEG dressing change 1 time daily for 2 weeks
--- NOTE | 2016-12-02 18:42 | Progress Note ---
Internal Med Progress Note Date of Service: Dec 02, 2016. Provider Documentation: SUBJECTIVE: The patient was seen and examined Denies any symptoms NO Abdominal pain nausea and or vomiting OBJECTIVE: Vital Signs-as noted below Exam: General-No distress at rest Eyes-Normal ENT-normal Neck-supple Lungs-Clear with decreased breath sound bilaterally Heart-Regular,no murmur Abdomen-Soft Extremities-No edema Neuro-AA Lab data as noted below. ASSESSMENT & PLAN: 76 yo M presents with worsening unstagable sacral decubitus ulcer after lying in bed x 6 weeks and and worsening pneumonia symptoms despite Augmentin as outpatient. Per daughter, she states that his R leg has only been contractures like this for about 1-2 weeks when he stopped having regular access to beer. She reports that he still smokers 3-6 cigarettes daily and has 2-3 beer s daily. She is asking for him to go to [facility] only because she feels he has good rehab potential and states that she has had a bad experience with a senior living in the past and "he is not going there." Acute hypoxia Secondary to pneumonia with concern for poss aspiration pneumonia in setting of prior stroke- MANAGER INCOME TAX evaluated him and believes he is aspirating. Palliative care consult ordered. Cont with current Levaquin and Zosyn as patient is improving. Appreciate GI input S/P PEG tube placement on 12/02/16::Avoid anticoagulation for 24 hours May use PEG for feeding starting on 12/03 May use PEG for medications today Please flush PEG every 4-6 hours with 60 mL of water Please have the PEG dressing change 1 time daily for 2 weeks Unstagable sacral decubitus ulcer-wound culture growing Morganella species sensitive to Zosyn. Awaiting wound care provider recs prior to narrowing spectrum. MRI reveals no evidence of osteo at this time. CASSIDY mccall. Wound care provider consult. R knee pain-uncertain of chronicity. Pt is nonverbal without family present today. 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 Will schedule IV Tylenol at this time as patient unable to fully communicate when he is in pain. h/o CVA-pt was recently out of ASA 81 and was not taking it for two weeks. Holding while strict NPO at this time and while figuring out ultimate wishes with family and patient. Notably not on statin therapy. Hypothyroidism-cont IV synthroid as inpatient while NPO. Depression-holding Paxil Severe Protein Calorie Malnutrition Cachexia-Inspector Semiconductor Wafer consult. Knee pain-likely 2/2 subacute contracture. Scheduled tylenol yesterday with resolution of pain per patient today. Anemia of chronic disease-no indication for transfer at this time. DVT PROPHYLAXIS Heparin SQ CODE STATUS Full code per Daughter Nikkie Valdez [phone] Vital Signs: Date Time Temp Pulse Resp B/P (MAP) Pulse Ox O2 Delivery O2 Flow Rate FiO2 12/02/16 16:30 36.4 59 18 175/68 (103) 98 Room Air 12/02/16 15:45 36.4 60 18 174/81 (112) 100 Room Air 12/02/16 15:41 58 14 93 Room Air 12/02/16 15:20 36.4 65 18 151/74 (99) 100 Room Air 12/02/16 14:49 176/67 (103) 12/02/16 14:45 59 16 180/61 (100) 100 Room Air 12/02/16 14:30 57 16 164/59 (94) 100 Room Air 12/02/16 14:15 63 14 148/57 (87) 100 Room Air 12/02/16 13:23 36.8 71 20 150/47 (81) 100 Room Air 12/02/16 11:15 73 14 97 Room Air 12/02/16 08:00 99 Nasal Cannula 2.0 12/02/16 07:47 36.3 77 18 172/62 (98) 99 Room Air 12/02/16 07:14 60 14 99 Room Air 12/02/16 00:00 36.7 70 18 167/65 (99) 99 Room Air 12/02/16 00:00 Nasal Cannula 2.0 12/01/16 20:05 Nasal Cannula 2.0 12/01/16 19:53 73 16 95 Room Air Lab Results: Results Past 24 Hours Test 12/02/16 07:03 Range/Units White Blood Count 8.26 4.8-10.8 K/uL Red Blood Count 3.97 4.7-6.1 M/uL Hemoglobin 8.9 14.0-18.0 g/dL Hematocrit 29.5 42-52 % Mean Corpuscular Volume 74.3 80-100 fL Mean Corpuscular Hemoglobin 22.4 25-34 pg Mean Corpuscular Hemoglobin Concent 30.2 32-36 g/dl RDW Standard Deviation 55.0 36.4-46.3 fL RDW Coefficient of Variation 20.0 11.5-14.5 % Platelet Count 334 130-400 K/uL Mean Platelet Volume 8.6 7.4-10.4 fL Sodium Level 139 136-145 mmol/L Potassium Level 3.4 3.5-5.1 mmol/L Chloride Level 109 98-107 mmol/L Carbon Dioxide Level 23 21-32 mmol/L Anion Gap 7.0 3-11 mmol/L Blood Urea Nitrogen 8 7-18 mg/dl Creatinine 0.32 0.60-1.40 mg/dl Est Creatinine Clear Calc Drug Dose 121.1 ml/min Estimated GFR () 145.5 Estimated GFR (Non- 125.6 BUN/Creatinine Ratio 25.3 10-20 Random Glucose 99 70-99 mg/dl Calcium Level 8.1 8.5-10.1 mg/dl Phosphorus Level 2.3 2.5-4.9 mg/dl Magnesium Level 1.7 1.8-2.4 mg/dl
[2016-12-03] VITALS (12 sets, daily range): BP systolic 91–172; BP diastolic 60–77; PULSE 59–83; TEMP 34.7–36.7; O2SAT 92–100
[2016-12-03] MEDS: PIPERACILL/TAZOBAC IV 3.375 GM in DEXTROSE 5% 100ML IV SCH ×3 (03:50→21:16)
[2016-12-03] MEDS: ACETAMINOPHEN IV 650 MG in EMPTY BAG 0 ML IV SCH ×4 (06:13→23:55)
[2016-12-03 07:44] LABS: HEMATOCRIT 34.8 % (42-52); MEAN CELL VOLUME 73.4 fL (80-100); MEAN CORPUSCULAR HEMOGLOBIN 23.2 pg (25-34); MEAN CORPUSCULAR HGB CONC 31.6 g/dl (32-36); MEAN PLATELET VOLUME 8.7 fL (7.4-10.4); PLATELET COUNT 395 K/uL (130-400); RED BLOOD COUNT 4.74 M/uL (4.7-6.1); WHITE BLOOD COUNT 9.05 K/uL (4.8-10.8)
[2016-12-03] MEDS: ALBUT/IPRATROP 3MG/0.5MG NEB 3 ML VIAL INH SCH ×4 (07:56→19:31)
--- NOTE | 2016-12-03 07:58 | Gastroenterology Progress Note ---
Progress Note Date of Service: Dec 03, 2016 Subjective Pt evaluation today including: conversation w/ patient, conversation w/ family , physical exam, chart review Pt was seen and evaluated, no acute events overnight. EGD w/ PEG placement yesterday - pt tolerated procedure well. Pt tells me this AM he feels well and is hungry. He is more alert this AM. Offers no complaints, specifically says no when asked about any abdominal pain. Per nursing staff, tube has been flushing w / ease. EGD w/ PEG 12/02/16: Normal esophagus. Scar in the gastric body. Normal examined duodenum. An externally removable PEG placement was successfully completed. Review of Systems Constitutional: No fever, No chills Respiratory: No cough, No shortness of breath Cardiac: No chest pain, No edema Abdomen: No pain, No nausea, No vomiting Medications Current Inpatient Medications Medications (Trade) Dose Ordered Sig/Juan Route Start Time Stop Time Status Last Admin Dose Admin Ondansetron HCl (Zofran Inj) 4 mg Q6H PRN IV 11/28/16 15:30 12/28/16 15:29 Bisacodyl (Dulcolax Supp) 10 mg TuSa@0900 VT 11/29/16 09:00 12/29/16 08:59 11/29/16 08:13 10 MG Piperacillin Sod/ Tazobactam Sod (Consult) 1 ea UD PRN N/A 11/28/16 19:26 12/28/16 19:25 Piperacillin Sod/ Tazobactam Sod 3.375 gm/Dextrose 115 ml @ 28.75 mls/ hr Q8H IV 11/28/16 20:00 12/05/16 19:59 12/03/16 03:50 28.75 MLS/HR Acetaminophen 650 mg/Empty Bag 65 ml @ 260 mls/hr Q6H IV 11/29/16 18:00 12/28/16 17:59 12/03/16 06:13 260 MLS/HR Albuterol/ Ipratropium (Duoneb) 3 ml QIDR INH 11/30/16 08:00 12/30/16 07:59 12/02/16 19:51 3 ML Levothyroxine Sodium 25 mcg/ Syringe 1.25 ml @ 2 mls/min DAILY@09 IV 11/30/16 09:00 12/30/16 08:59 12/02/16 08:28 2 MLS/MIN Thiamine HCl 100 mg/Syringe 10 ml @ 2 mls/min QAM IV 12/01/16 09:00 12/31/16 08:59 12/02/16 08:28 2 MLS/MIN Morphine Sulfate (MoRPHine SULFATE INJ) 2 mg Q4H PRN IV 12/01/16 11:45 12/15/16 11:44 Levofloxacin 750 mg/Prmx 150 ml @ 100 mls/hr Q48H IV 12/03/16 14:00 12/05/16 13:59 Objective Vital Signs Date Time Temp Pulse Resp B/P (MAP) Pulse Ox O2 Delivery O2 Flow Rate FiO2 12/03/16 07:36 36.3 63 16 172/62 (98) 98 Room Air 12/03/16 00:08 36.7 71 16 144/77 (99) 100 Room Air 12/03/16 00:00 Room Air 12/02/16 21:30 36.3 64 18 189/73 (111) 98 Room Air 12/02/16 19:51 80 14 95 Room Air 12/02/16 19:49 Nasal Cannula 2.0 12/02/16 17:30 36.4 65 18 155/84 (107) 99 Room Air 12/02/16 16:30 36.4 59 18 175/68 (103) 98 Room Air 12/02/16 15:45 36.4 60 18 174/81 (112) 100 Room Air 12/02/16 15:41 58 14 93 Room Air 12/02/16 15:20 36.4 65 18 151/74 (99) 100 Room Air 12/02/16 14:49 176/67 (103) 12/02/16 14:45 59 16 180/61 (100) 100 Room Air 12/02/16 14:30 57 16 164/59 (94) 100 Room Air 12/02/16 14:15 63 14 148/57 (87) 100 Room Air 12/02/16 13:23 36.8 71 20 150/47 (81) 100 Room Air 12/02/16 11:15 73 14 97 Room Air 12/02/16 08:00 99 Nasal Cannula 2.0 Physical Exam General Appearance: no apparent distress Eyes: PERRL ENT: hearing grossly normal Neck: supple Respiratory/Chest: lungs clear, normal breath sounds Cardiovascular: regular rate, rhythm Abdomen: normal bowel sounds, non tender, soft, no organomegaly, no pulsatile mass, + pertinent finding (PEG tube intact w/ clean dressing) Neurologic/Psych: alert, normal mood/affect Skin: normal color, no jaundice Laboratory Results Last 24 Hours Test 12/03/16 07:10 White Blood Count 9.05 K/uL Red Blood Count 4.74 M/uL Hemoglobin 11.0 g/dL Hematocrit 34.8 % Mean Corpuscular Volume 73.4 fL Mean Corpuscular Hemoglobin 23.2 pg Mean Corpuscular Hemoglobin Concent 31.6 g/dl RDW Standard Deviation 54.6 fL RDW Coefficient of Variation 20.2 % Platelet Count 395 K/uL Mean Platelet Volume 8.7 fL Assessment and Plan - Avoid anticoagulation for 24 hours - can restart heparin 12/04/16 - Nutrition consult for formula and volume - May use PEG for feeding today - Please flush PEG every 4-6 hours with 60 mL of water - Please have the PEG dressing change 1 time daily for 2 weeks - ABX ointment to site - Clean site with soap and water daily and dry thoroughly GI to sign off. Please reconsult/call with any questions or concerns. Thank you I saw and evaluated the patient. There are no apparent complications after his feeding tube placement from yesterday. Recommendations PEG tube can be used for nutrition and medications. Daily dressing change for 2 weeks Flush PEG tube 4 times daily with 60 mL of water Nutrition orders per internal medicine service.
[2016-12-03 08:19] LABS: BUN/CREATININE RATIO 18.5 (10-20); CALCIUM 8.7 mg/dl (8.5-10.1); CREATININE 0.33 mg/dl (0.60-1.40); MAGNESIUM 1.8 mg/dl (1.8-2.4); PHOSPHORUS 2.8 mg/dl (2.5-4.9); POTASSIUM 3.5 mmol/L (3.5-5.1)
[2016-12-03] MEDS: THIAMINE HCL INJ 100 MG in SYRINGE 9 ML IV SCH (10:41)
[2016-12-03] MEDS: LEVOTHYROXINE SODIUM INJ 25 MCG in SYRINGE 0 ML IV SCH (10:41)
[2016-12-03] MEDS ORDERED: IMPACT LIQ 1000 ML BAG PEG PRN (10:45)
[2016-12-03] MEDS ORDERED: LEVOFLOXACIN / D5W 750 MG in PREMIXED IN D5W 150 ML IV SCH (14:00)
--- NOTE | 2016-12-03 15:59 | Progress Note ---
Internal Med Progress Note Date of Service: Dec 03, 2016. Provider Documentation: SUBJECTIVE: The patient was seen and examined Denies any symptoms NO Abdominal pain nausea and or vomiting S/P PEG placement 12/02/16 OBJECTIVE: Vital Signs-as noted below Exam: General-No distress at rest Eyes-Normal ENT-normal Neck-supple Lungs-Clear with decreased breath sound bilaterally Heart-Regular,no murmur Abdomen-Soft Extremities-No edema Neuro-AA Lab data as noted below. ASSESSMENT & PLAN: 76 yo M presents with worsening unstagable sacral decubitus ulcer after lying in bed x 6 weeks and and worsening pneumonia symptoms despite Augmentin as outpatient. Per daughter, she states that his R leg has only been contractures like this for about 1-2 weeks when he stopped having regular access to beer. She reports that he still smokers 3-6 cigarettes daily and has 2-3 beer s daily. She is asking for him to go to [facility] only because she feels he has good rehab potential and states that she has had a bad experience with a alf in the past and "he is not going there." Acute hypoxia Secondary to pneumonia with concern for poss aspiration pneumonia in setting of prior stroke- SUBSTATION ELECTRICIAN evaluated him and believes he is aspirating. Palliative care consult ordered. Cont with current Levaquin and Zosyn as patient is improving. Appreciate GI input S/P PEG tube placement on 12/02/16::Avoid anticoagulation for 24 hours May use PEG for feeding starting on 12/03 May use PEG for medications today Please flush PEG every 4-6 hours with 60 mL of water Please have the PEG dressing change 1 time daily for 2 weeks Nutrition consult for PEG tube feeding Unstagable sacral decubitus ulcer-wound culture growing Morganella species sensitive to Zosyn. Awaiting wound care provider recs prior to narrowing spectrum. MRI reveals no evidence of osteo at this time. CASSIDY mccall. Wound care provider consult. No acute issue R knee pain-uncertain of chronicity. Pt is nonverbal without family present today. 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 Will schedule IV Tylenol at this time as patient unable to fully communicate when he is in pain. Will start oral Medicine through the PEG h/o CVA-pt was recently out of ASA 81 and was not taking it for two weeks. Holding while strict NPO at this time and while figuring out ultimate wishes with family and patient. Notably not on statin therapy. Hypothyroidism-cont IV Synthroid as inpatient while NPO. Depression-holding Paxil Severe Protein Calorie Malnutrition Cachexia-Machined Parts Metal Sprayer consult. Knee pain-likely 2/2 subacute contracture. Scheduled tylenol yesterday with resolution of pain per patient today. Anemia of chronic disease-no indication for transfer at this time. DVT PROPHYLAXIS Heparin SQ CODE STATUS Full code per Daughter Nikkie Vital Signs: Date Time Temp Pulse Resp B/P (MAP) Pulse Ox O2 Delivery O2 Flow Rate FiO2 12/03/16 13:16 36.3 12/03/16 11:17 65 14 94 Room Air 12/03/16 10:07 98 Room Air 12/03/16 08:01 34.7 59 14 170/60 (96) 98 Room Air 12/03/16 08:00 98 Room Air 12/03/16 07:57 60 14 92 Room Air 12/03/16 07:36 36.3 63 16 172/62 (98) 98 Room Air 12/03/16 00:08 36.7 71 16 144/77 (99) 100 Room Air 12/03/16 00:00 Room Air 12/02/16 21:30 36.3 64 18 189/73 (111) 98 Room Air 12/02/16 19:51 80 14 95 Room Air 12/02/16 19:49 Nasal Cannula 2.0 12/02/16 17:30 36.4 65 18 155/84 (107) 99 Room Air 12/02/16 16:30 36.4 59 18 175/68 (103) 98 Room Air Lab Results: Results Past 24 Hours Test 12/03/16 07:10 Range/Units White Blood Count 9.05 4.8-10.8 K/uL Red Blood Count 4.74 4.7-6.1 M/uL Hemoglobin 11.0 14.0-18.0 g/dL Hematocrit 34.8 42-52 % Mean Corpuscular Volume 73.4 80-100 fL Mean Corpuscular Hemoglobin 23.2 25-34 pg Mean Corpuscular Hemoglobin Concent 31.6 32-36 g/dl RDW Standard Deviation 54.6 36.4-46.3 fL RDW Coefficient of Variation 20.2 11.5-14.5 % Platelet Count 395 130-400 K/uL Mean Platelet Volume 8.7 7.4-10.4 fL Sodium Level 134 136-145 mmol/L Potassium Level 3.5 3.5-5.1 mmol/L Chloride Level 102 98-107 mmol/L Carbon Dioxide Level 24 21-32 mmol/L Anion Gap 8.0 3-11 mmol/L Blood Urea Nitrogen 6 7-18 mg/dl Creatinine 0.33 0.60-1.40 mg/dl Est Creatinine Clear Calc Drug Dose 117.5 ml/min Estimated GFR () 143.7 Estimated GFR (Non- 124.0 BUN/Creatinine Ratio 18.5 10-20 Random Glucose 86 70-99 mg/dl Calcium Level 8.7 8.5-10.1 mg/dl Phosphorus Level 2.8 2.5-4.9 mg/dl Magnesium Level 1.8 1.8-2.4 mg/dl
[2016-12-03] MEDS ORDERED: LEVOFLOXACIN CONSULT ACTIVE PRN (16:30)
[2016-12-03] MEDS: IMPACT LIQ 1000 ML BAG PEG SCH (18:11)
[2016-12-03] MEDS: HEPARIN SOD 5000 UNIT/0.5 ML CARP SQ SCH (21:20)
[2016-12-04] VITALS (8 sets, daily range): BP systolic 113–150; BP diastolic 62–84; PULSE 73–83; TEMP 36.4–36.5; O2SAT 91–99
[2016-12-04] MEDS: PIPERACILL/TAZOBAC IV 3.375 GM in DEXTROSE 5% 100ML IV SCH ×3 (03:53→20:42)
[2016-12-04] MEDS: ACETAMINOPHEN IV 650 MG in EMPTY BAG 0 ML IV SCH ×3 (05:25→18:16)
[2016-12-04] MEDS: ALBUT/IPRATROP 3MG/0.5MG NEB 3 ML VIAL INH SCH ×4 (07:50→20:15)
[2016-12-04] MEDS: THIAMINE HCL INJ 100 MG in SYRINGE 9 ML IV SCH (08:06)
[2016-12-04] MEDS: LEVOTHYROXINE SODIUM INJ 25 MCG in SYRINGE 0 ML IV SCH (08:07)
[2016-12-04] MEDS: HEPARIN SOD 5000 UNIT/0.5 ML CARP SQ SCH ×2 (08:08→20:33)
--- NOTE | 2016-12-04 18:10 | Progress Note ---
Internal Med Progress Note Date of Service: Dec 04, 2016. Provider Documentation: SUBJECTIVE: The patient was seen and examined Denies any symptoms NO Abdominal pain nausea and or vomiting S/P PEG placement 12/02/16 Started on PEG feeding 12/04/16 Remains stable OBJECTIVE: Vital Signs-as noted below Exam: General-No distress at rest Eyes-Normal ENT-normal Neck-supple Lungs-Clear with decreased breath sound bilaterally Heart-Regular,no murmur Abdomen-Soft Extremities-No edema Neuro-AA Has flexor deformities and pressure sores as per wound care Lab data as noted below. ASSESSMENT & PLAN: 76 yo M presents with worsening unstagable sacral decubitus ulcer after lying in bed x 6 weeks and and worsening pneumonia symptoms despite Augmentin as outpatient. Per daughter, she states that his R leg has only been contractures like this for about 1-2 weeks when he stopped having regular access to beer. She reports that he still smokers 3-6 cigarettes daily and has 2-3 beer s daily. She is asking for him to go to [facility] only because she feels he has good rehab potential and states that she has had a bad experience with a mcc in the past and "he is not going there." Acute hypoxia Secondary to pneumonia with concern for poss aspiration pneumonia in setting of prior stroke- PROTECTION MANAGER evaluated him and believes he is aspirating. Palliative care consult ordered. Cont with current Levaquin and Zosyn as patient is improving. Appreciate GI input S/P PEG tube placement on 12/02/16::Avoid anticoagulation for 24 hours May use PEG for feeding starting on 12/03 May use PEG for medications today Please flush PEG every 4-6 hours with 60 mL of water Please have the PEG dressing change 1 time daily for 2 weeks Nutrition consult for PEG tube feeding Started on PEG feeding Unstagable sacral decubitus ulcer-wound culture growing Morganella species sensitive to Zosyn. Awaiting wound care provider recs prior to narrowing spectrum. MRI reveals no evidence of osteo at this time. CASSIDY mccall. Wound care provider consult. No acute issue R knee pain-uncertain of chronicity. Pt is nonverbal without family present today. 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 Will schedule IV Tylenol at this time as patient unable to fully communicate when he is in pain. Will start oral Medicine through the PEG h/o CVA-pt was recently out of ASA 81 and was not taking it for two weeks. Holding while strict NPO at this time and while figuring out ultimate wishes with family and patient. Notably not on statin therapy. Hypothyroidism-cont IV Synthroid as inpatient while NPO. Depression-holding Paxil Severe Protein Calorie Malnutrition Cachexia-Water Softener Installer consult. Knee pain-likely 2/2 subacute contracture. Scheduled tylenol yesterday with resolution of pain per patient today. Anemia of chronic disease-no indication for transfer at this time. DVT PROPHYLAXIS Heparin SQ -started CODE STATUS Full code per Daughter Nikkie Will discuss with the Daughter Vital Signs: Date Time Temp Pulse Resp B/P (MAP) Pulse Ox O2 Delivery O2 Flow Rate FiO2 12/04/16 16:00 Room Air 12/04/16 15:34 81 14 91 Room Air 12/04/16 15:27 36.4 83 20 143/84 (103) 98 Room Air 12/04/16 11:22 81 14 91 Room Air 12/04/16 08:00 92 Room Air 12/04/16 07:50 77 14 93 Room Air 12/04/16 07:32 36.5 73 16 150/73 (98) 92 12/04/16 00:00 Room Air 12/03/16 23:19 36.3 76 16 144/68 (93) 98 Room Air 12/03/16 20:00 Room Air 12/03/16 19:32 76 14 93 Room Air Lab Results: Results Past 24 Hours Test 12/03/16 18:31 12/04/16 00:42 12/04/16 06:27 12/04/16 11:21 Range/Units Bedside Glucose 89 91 135 130 70-99 mg/dl
[2016-12-05] VITALS (8 sets, daily range): BP systolic 132–154; BP diastolic 68–73; PULSE 64–78; TEMP 36.4–36.8; O2SAT 94–99
[2016-12-05] MEDS: ACETAMINOPHEN IV 650 MG in EMPTY BAG 0 ML IV SCH ×3 (00:03→12:07)
[2016-12-05] MEDS: PIPERACILL/TAZOBAC IV 3.375 GM in DEXTROSE 5% 100ML IV SCH ×3 (03:33→20:19)
[2016-12-05] MEDS: ALBUT/IPRATROP 3MG/0.5MG NEB 3 ML VIAL INH SCH ×4 (07:51→19:56)
[2016-12-05 08:39] LABS: BUN/CREATININE RATIO 40.7 (10-20); CALCIUM 8.1 mg/dl (8.5-10.1); CREATININE 0.41 mg/dl (0.60-1.40); MAGNESIUM 1.9 mg/dl (1.8-2.4); PHOSPHORUS 2.3 mg/dl (2.5-4.9); POTASSIUM 3.3 mmol/L (3.5-5.1)
[2016-12-05] MEDS: IMPACT LIQ 1000 ML BAG PEG SCH (09:10)
[2016-12-05] MEDS: THIAMINE HCL INJ 100 MG in SYRINGE 9 ML IV SCH (09:10)
[2016-12-05] MEDS: HEPARIN SOD 5000 UNIT/0.5 ML CARP SQ SCH ×2 (09:16→20:27)
[2016-12-05] MEDS: LEVOTHYROXINE SODIUM INJ 25 MCG in SYRINGE 0 ML IV SCH (10:12)
[2016-12-05] MEDS ORDERED: POTASSIUM CHLORIDE 20 MEQ/15 ML UDC PEG ONE (10:30)
[2016-12-05] MEDS ORDERED: ACETAMINOPHEN 325 MG TAB PEG PRN (13:30)
[2016-12-05] MEDS ORDERED: ACETAMINOPHEN 325 MG TAB PO PRN (13:30)
--- NOTE | 2016-12-05 13:38 | Progress Note ---
Medicine Progress Note Date & Time of Visit: Dec 05, 2016 at 11:46. (Monica Virk PA-C) Subjective Pt seen with sister at bedside. PEG tube placed 12/02. Tolerating tube feedings. Denies abdominal pain, N/V, chest pain, SOB, cough. Denies any other pain. Incontinent of urine. Passed a small loose BM today per nursing notes. (Monica Virk PA-C) Objective Last 8 Hrs Date Time Temp Pulse Resp B/P (MAP) Pulse Ox O2 Delivery O2 Flow Rate FiO2 12/05/16 11:31 74 16 95 Room Air 12/05/16 08:35 36.4 76 20 132/73 (92) 96 Room Air 12/05/16 08:34 96 Room Air 12/05/16 08:00 96 Room Air 12/05/16 07:51 66 16 97 Room Air Physical Exam: General-alert frail elderly male, lying in bed, no distress Eyes-normal inspection ENT-dry oral mucosa, pharynx normal Neck-trachea midline Lungs-CTA anteriorly, no wheezes, crackles, rhonchi Heart-RRR, no murmur Abdomen-soft, nontender, normal BS, PEG tube in place, no surrounding erythema, small amount dried serosanguineous drainage on dressing Extremities-bilateral LE contractures and muscle wasting Neuro-mostly aphasic, answers yes/no questions, chronic RUE and RLE weakness Skin- sacral decubitus ulcer with Aquacel in place, no surrounding erythema Laboratory Results: Last 24 Hours Test 12/04/16 18:11 12/04/16 23:52 12/05/16 06:37 12/05/16 07:42 Bedside Glucose 162 mg/dl 151 mg/dl 153 mg/dl Sodium Level 137 mmol/L Potassium Level 3.3 mmol/L Chloride Level 103 mmol/L Carbon Dioxide Level 28 mmol/L Anion Gap 6.0 mmol/L Blood Urea Nitrogen 17 mg/dl Creatinine 0.41 mg/dl Est Creatinine Clear Calc Drug Dose 97.7 ml/min Estimated GFR () 131.4 Estimated GFR (Non- 113.4 BUN/Creatinine Ratio 40.7 Random Glucose 144 mg/dl Calcium Level 8.1 mg/dl Phosphorus Level 2.3 mg/dl Magnesium Level 1.9 mg/dl (Monica Virk PA-C) Assessment & Plan PNEUMONIA, POSSIBLY 2/2 ASPIRATION In setting of dysphagia from prior stroke Failed outpatient treatment with Augmentin Initially hypoxic, now saturating well on RA Improving on Levaquin and Zosyn (day 8)- continue for total of 10 days Speech consulted- thought to be aspirating Palliative care consulted GI consulted, appreciate input S/p PEG tube placement on ; per Dr. Woody- "Avoid anticoagulation for 24 hours May use PEG for feeding starting on 12/03 May use PEG for medications today Please flush PEG every 4-6 hours with 60 mL of water Please have the PEG dressing change 1 time daily for 2 weeks" Nutrition consulted for PEG tube feeding Tolerating tube feeds well UNSTAGABLE SACRAL DECUBITUS ULCER Wound culture grew Morganella species sensitive to Zosyn MRI lumbar spine showed no evidence of osteomyelitis Seen by wound care nurse Dr. Lynn consulted; debridement done 12/02 Await wound care provider recommendation for de-escalating antibiotics Low air loss mattress HYPOKALEMIA Replaced via PEG Monitor PRP RIGHT KNEE PAIN- resolved Likely due to contracture Change from IV Tylenol to via PEG HISTORY OF CVA Was not taking ASA for 2 weeks WATER TECHNICIAN, then held for NPO status Resume aspirin via PEG HYPOTHYROIDISM Was on IV Synthroid- change to via PEG DEPRESSION Resume Paxil via PEG NEUROPATHY Resume gabapentin via PEG SEVERE PROTEIN CALORIE MALNUTRITION CACHEXIA Global Recruiter consulted H/O ALCOHOL USE No withdrawal On daily thiamine ANEMIA OF CHRONIC DISEASE Monitor CBC as outpatient DVT PROPHYLAXIS Heparin SQ CODE STATUS Full code per Daughter Nikkie ( ) DISPOSITION Home with daughter and home health - attending discussed with montana Lundy via phone call Patient seen in collaboration with Dr. Ro. Please see his addendum. Current Inpatient Medications: Current Inpatient Medications Medications (Trade) Dose Ordered Sig/Juan Route Start Time Stop Time Status Last Admin Dose Admin Ondansetron HCl (Zofran Inj) 4 mg Q6H PRN IV 11/28/16 15:30 12/28/16 15:29 12/04/16 23:43 4 MG Bisacodyl (Dulcolax Supp) 10 mg TuSa@0900 OK 11/29/16 09:00 12/29/16 08:59 11/29/16 08:13 10 MG Piperacillin Sod/ Tazobactam Sod (Consult) 1 ea UD PRN N/A 11/28/16 19:26 12/28/16 19:25 Piperacillin Sod/ Tazobactam Sod 3.375 gm/Dextrose 115 ml @ 28.75 mls/ hr Q8H IV 11/28/16 20:00 12/05/16 19:59 12/05/16 03:33 28.75 MLS/HR Acetaminophen 650 mg/Empty Bag 65 ml @ 260 mls/hr Q6H IV 11/29/16 18:00 12/28/16 17:59 12/05/16 05:28 260 MLS/HR Albuterol/ Ipratropium (Duoneb) 3 ml QIDR INH 11/30/16 08:00 12/30/16 07:59 12/05/16 11:29 3 ML Levothyroxine Sodium 25 mcg/ Syringe 1.25 ml @ 2 mls/min DAILY@09 IV 11/30/16 09:00 12/30/16 08:59 12/05/16 10:12 2 MLS/MIN Thiamine HCl 100 mg/Syringe 10 ml @ 2 mls/min QAM IV 12/01/16 09:00 12/31/16 08:59 12/05/16 09:10 2 MLS/MIN Morphine Sulfate (MoRPHine SULFATE INJ) 2 mg Q4H PRN IV 12/01/16 11:45 12/15/16 11:44 Levofloxacin 750 mg/Prmx 150 ml @ 100 mls/hr Q48H IV 12/03/16 14:00 12/05/16 13:59 12/03/16 14:07 100 MLS/HR Heparin Sodium (Porcine) (Heparin Sq 5000 Unit/0.5ml) 5,000 unit Q12 SQ 12/03/16 21:00 01/02/17 20:59 12/05/16 09:16 5,000 UNIT Levofloxacin (Consult) 1 ea UD PRN N/A 12/03/16 16:30 01/02/17 16:29 Enteral Nutritional Formula (Impact 1.0 Rhett) 1,000 ml UD PEG 12/03/16 18:15 01/02/17 10:44 12/05/16 09:10 1,000 ML (Monica Virk PA-C) Attending Addendum; The patient was seen and examined in presence of the sister Remains stable and denies any symptoms Tolerating PEG tube feeding O/E No distress HEENT-normal Has severe malnutrition Chest-clear Heart-regular Abdomen-s/p PEG.Benign,no masses,bowel sound present Extremities-Has flexor deformity in both lower extremities Right sided hemiplegia Labs noted Agree with the assessment and plan. Discussed with the Daughter DR Catherine Ro (Danilo Ro M.D.)
[2016-12-05] MEDS: GABAPENTIN 250 MG/5 ML 470 ML BTL PEG SCH ×2 (14:16→20:25)
[2016-12-05] MEDS ORDERED: LEVOFLOXACIN / D5W 750 MG in PREMIXED IN D5W 150 ML IV SCH (16:00)
[2016-12-06] VITALS (7 sets, daily range): BP systolic 130–159; BP diastolic 62–65; PULSE 71–81; TEMP 36.4–36.6; O2SAT 90–99
[2016-12-06] MEDS: PIPERACILL/TAZOBAC IV 3.375 GM in DEXTROSE 5% 100ML IV SCH ×3 (04:29→19:58)
[2016-12-06] MEDS: IMPACT LIQ 1000 ML BAG PEG SCH (04:45)
[2016-12-06 07:29] LABS: HEMATOCRIT 27.3 % (42-52); MEAN CELL VOLUME 73.4 fL (80-100); MEAN CORPUSCULAR HEMOGLOBIN 23.4 pg (25-34); MEAN CORPUSCULAR HGB CONC 31.9 g/dl (32-36); MEAN PLATELET VOLUME 8.7 fL (7.4-10.4); PLATELET COUNT 291 K/uL (130-400); RED BLOOD COUNT 3.72 M/uL (4.7-6.1); WHITE BLOOD COUNT 8.91 K/uL (4.8-10.8)
[2016-12-06] MEDS: ALBUT/IPRATROP 3MG/0.5MG NEB 3 ML VIAL INH SCH ×4 (07:40→19:24)
[2016-12-06 08:00] LABS: BUN/CREATININE RATIO 53.1 (10-20); CALCIUM 8.2 mg/dl (8.5-10.1); CREATININE 0.35 mg/dl (0.60-1.40); MAGNESIUM 1.8 mg/dl (1.8-2.4); POTASSIUM 3.3 mmol/L (3.5-5.1)
[2016-12-06] MEDS: BISACODYL 10 MG SUPP PR SCH (08:34)
[2016-12-06] MEDS: LEVOTHYROXINE 75 MCG TAB PEG SCH (08:36)
[2016-12-06] MEDS: THIAMINE HCL INJ 100 MG in SYRINGE 9 ML IV SCH (08:36)
[2016-12-06] MEDS: PAROXETINE 20 MG TAB PEG SCH (08:36)
[2016-12-06] MEDS: ACETAMINOPHEN SOLN 325 MG/10.15 ML UDC PO PRN (08:37)
[2016-12-06] MEDS: GABAPENTIN 250 MG/5 ML 470 ML BTL PEG SCH ×3 (08:42→20:28)
[2016-12-06] MEDS: HEPARIN SOD 5000 UNIT/0.5 ML CARP SQ SCH ×2 (08:50→20:29)
[2016-12-06] MEDS ORDERED: ASPIRIN 81 MG ECTAB PO SCH (09:00)
[2016-12-06] MEDS ORDERED: LEVOTHYROXINE 100 MCG TAB PO SCH (09:00)
[2016-12-06] MEDS ORDERED: PAROXETINE 20 MG TAB PO SCH (09:00)
[2016-12-06] MEDS ORDERED: NURSING VERBAL MED ORDER ONE (11:30)
[2016-12-06] MEDS ORDERED: POTASSIUM CHLORIDE 20 MEQ TABCR PO ONE (11:45)
[2016-12-06] MEDS: ASPIRIN 81 MG CHEW PEG SCH (11:48)
[2016-12-06] MEDS ORDERED: POTASSIUM CHLORIDE 20 MEQ/15 ML UDC PO ONE (12:30)
--- NOTE | 2016-12-06 19:36 | Progress Note ---
Medicine Progress Note Date & Time of Visit: Dec 06, 2016 at 14:18. Subjective Pt was seen and examined Lying in bed with no distress denies any chest pain, palpitation, dizziness Objective Last 8 Hrs Date Time Temp Pulse Resp B/P (MAP) Pulse Ox O2 Delivery O2 Flow Rate FiO2 12/06/16 16:35 Room Air 12/06/16 15:00 75 16 92 Room Air 12/06/16 15:00 36.4 81 18 130/64 (86) 97 Room Air 12/06/16 11:33 75 16 90 Room Air Physical Exam: General- No acute distress Head- atraumatic, anicteric ENT- oropharynx clear Neck- supple, no JVD Lungs- No wheezing Heart- regular rhythm Abdomen- normal bowel sounds Extremities- no calf tenderness Neuro- alert, oriented x 3; PERRL, EOMI Skin- warm & dry Laboratory Results: Last 24 Hours Test 12/06/16 06:38 12/06/16 06:49 12/06/16 12:14 12/06/16 18:25 Bedside Glucose 179 mg/dl 138 mg/dl 143 mg/dl White Blood Count 8.91 K/uL Red Blood Count 3.72 M/uL Hemoglobin 8.7 g/dL Hematocrit 27.3 % Mean Corpuscular Volume 73.4 fL Mean Corpuscular Hemoglobin 23.4 pg Mean Corpuscular Hemoglobin Concent 31.9 g/dl RDW Standard Deviation 55.3 fL RDW Coefficient of Variation 20.8 % Platelet Count 291 K/uL Mean Platelet Volume 8.7 fL Sodium Level 139 mmol/L Potassium Level 3.3 mmol/L Chloride Level 103 mmol/L Carbon Dioxide Level 30 mmol/L Anion Gap 6.0 mmol/L Blood Urea Nitrogen 19 mg/dl Creatinine 0.35 mg/dl Est Creatinine Clear Calc Drug Dose 105.0 ml/min Estimated GFR () 140.3 Estimated GFR (Non- 121.0 BUN/Creatinine Ratio 53.1 Random Glucose 163 mg/dl Calcium Level 8.2 mg/dl Magnesium Level 1.8 mg/dl Assessment & Plan Acute hypoxia Possible secondary to aspiration pneumonia Speech therapy on board Palliative care on board Cont with current Levaquin and Zosyn Clinically improved Dysphagia/Aspiration VETERINARY MEAT INSPECTOR recommending palliative care with p.o. intake for comfort with the understanding that pt likely will not be able to sustain nutritional needs and will potentially aspirate. S/P PEG tube placement on 12/02/16 May use PEG for medications today Please flush PEG every 4-6 hours with 60 mL of water Please have the PEG dressing change 1 time daily for 2 weeks Continue PEG feeding Unstagable sacral decubitus ulcer wound culture growing Morganella species sensitive to Zosyn. MRI reveals no evidence of osteo at this time. s/p debridement by dr. Lynn Continue daily wound care R knee pain. 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 Continue Tylenol for pain h/o CVA-p Continue aspirin Hypothyroidism- Continue Synthroid Depression continue Paxil. Anemia of chronic disease- Hbg stable DVT PROPHYLAXIS On Heparin SQ CODE STATUS Full code Daughter Nikkie Current Inpatient Medications: Current Inpatient Medications Medications (Trade) Dose Ordered Sig/Juan Route Start Time Stop Time Status Last Admin Dose Admin Ondansetron HCl (Zofran Inj) 4 mg Q6H PRN IV 11/28/16 15:30 12/28/16 15:29 12/04/16 23:43 4 MG Bisacodyl (Dulcolax Supp) 10 mg TuSa@0900 CT 11/29/16 09:00 12/29/16 08:59 11/29/16 08:13 10 MG Piperacillin Sod/ Tazobactam Sod (Consult) 1 ea UD PRN N/A 11/28/16 19:26 12/07/16 23:59 Piperacillin Sod/ Tazobactam Sod 3.375 gm/Dextrose 115 ml @ 28.75 mls/ hr Q8H IV 11/28/16 20:00 12/07/16 19:59 12/06/16 11:19 28.75 MLS/HR Albuterol/ Ipratropium (Duoneb) 3 ml QIDR INH 11/30/16 08:00 12/30/16 07:59 12/06/16 15:00 3 ML Thiamine HCl 100 mg/Syringe 10 ml @ 2 mls/min QAM IV 12/01/16 09:00 12/31/16 08:59 12/06/16 08:36 2 MLS/MIN Morphine Sulfate (MoRPHine SULFATE INJ) 2 mg Q4H PRN IV 12/01/16 11:45 12/15/16 11:44 Heparin Sodium (Porcine) (Heparin Sq 5000 Unit/0.5ml) 5,000 unit Q12 SQ 12/03/16 21:00 01/02/17 20:59 12/06/16 08:50 5,000 UNIT Levofloxacin (Consult) 1 ea UD PRN N/A 12/03/16 16:30 12/07/16 23:59 Enteral Nutritional Formula (Impact 1.0 Rhett) 1,000 ml UD PEG 12/03/16 18:15 01/02/17 10:44 12/06/16 04:45 1,000 ML Acetaminophen (Tylenol Soln) 650 mg Q4H PRN PO 12/05/16 13:45 01/04/17 13:44 12/06/16 08:37 650 MG Levothyroxine Sodium (Synthroid Tab) 75 mcg DAILY PEG 12/06/16 09:00 01/05/17 08:59 12/06/16 08:36 75 MCG Paroxetine HCl (pAXil TAB) 20 mg DAILY PEG 12/06/16 09:00 01/05/17 08:59 12/06/16 08:36 20 MG Gabapentin (Neurontin) 200 mg TID PEG 12/05/16 14:00 01/04/17 13:59 12/06/16 14:18 200 MG Aspirin (Aspirin Chew) 81 mg QAM PEG 12/06/16 12:30 01/05/17 12:29 12/06/16 11:48 81 MG Levofloxacin 750 mg/Prmx 150 ml @ 100 mls/hr Q48H IV 12/07/16 16:00 12/07/16 17:29
[2016-12-07] VITALS (9 sets, daily range): BP systolic 92–175; BP diastolic 55–73; PULSE 67–90; TEMP 36.3–36.6; O2SAT 90–100
[2016-12-07] MEDS: PIPERACILL/TAZOBAC IV 3.375 GM in DEXTROSE 5% 100ML IV SCH ×2 (04:12→12:07)
[2016-12-07] MEDS: ALBUT/IPRATROP 3MG/0.5MG NEB 3 ML VIAL INH SCH ×4 (07:25→19:37)
[2016-12-07] MEDS: LEVOTHYROXINE 75 MCG TAB PEG SCH (08:00)
[2016-12-07] MEDS: PAROXETINE 20 MG TAB PEG SCH (08:00)
[2016-12-07] MEDS: ASPIRIN 81 MG CHEW PEG SCH (08:00)
[2016-12-07] MEDS: THIAMINE HCL INJ 100 MG in SYRINGE 9 ML IV SCH (08:01)
[2016-12-07] MEDS: ACETAMINOPHEN SOLN 325 MG/10.15 ML UDC PO PRN (08:02)
[2016-12-07] MEDS: GABAPENTIN 250 MG/5 ML 470 ML BTL PEG SCH ×3 (08:12→21:14)
[2016-12-07 08:16] LABS: MEAN CELL VOLUME 73.8 fL (80-100); MEAN CORPUSCULAR HEMOGLOBIN 23.9 pg (25-34); MEAN CORPUSCULAR HGB CONC 32.4 g/dl (32-36); MEAN PLATELET VOLUME 8.9 fL (7.4-10.4); PLATELET COUNT 292 K/uL (130-400); RED BLOOD COUNT 3.93 M/uL (4.7-6.1); WHITE BLOOD COUNT 7.97 K/uL (4.8-10.8)
[2016-12-07 08:50] LABS: BUN/CREATININE RATIO 64.7 (10-20); CALCIUM 8.5 mg/dl (8.5-10.1); CREATININE 0.3 mg/dl (0.60-1.40); POTASSIUM 3.6 mmol/L (3.5-5.1)
[2016-12-07] MEDS: HEPARIN SOD 5000 UNIT/0.5 ML CARP SQ SCH ×2 (09:30→21:08)
[2016-12-07] MEDS ORDERED: POTASSIUM CHLORIDE 20 MEQ TABCR PO ONE (11:45)
--- NOTE | 2016-12-07 14:20 | Progress Note ---
Medicine Progress Note Date & Time of Visit: Dec 07, 2016 at 14:17. Subjective Pt was seen and examined Lying in bed with no distress Denies any chest pain, palpitation and sob Objective Last 8 Hrs Date Time Temp Pulse Resp B/P (MAP) Pulse Ox O2 Delivery O2 Flow Rate FiO2 12/07/16 11:34 72 16 95 Room Air 12/07/16 10:00 36.5 80 20 164/71 (102) 97 Room Air 12/07/16 08:15 36.6 67 18 175/68 (103) 100 Room Air 7.0 12/07/16 07:45 100 Room Air 12/07/16 07:26 70 16 97 Room Air Physical Exam: General- No acute distress Head- atraumatic, anicteric ENT- oropharynx clear Neck- supple, no JVD Lungs- coarse breath sound Heart- regular rhythm Abdomen- normal bowel sounds Extremities- no calf tenderness Neuro- alert, oriented x 3; PERRL, EOMI Skin- warm & dry Laboratory Results: Last 24 Hours Test 12/06/16 18:25 12/06/16 20:16 12/07/16 01:55 12/07/16 06:14 Bedside Glucose 143 mg/dl 155 mg/dl 163 mg/dl 143 mg/dl Test 12/07/16 07:34 12/07/16 11:50 White Blood Count 7.97 K/uL Red Blood Count 3.93 M/uL Hemoglobin 9.4 g/dL Hematocrit 29.0 % Mean Corpuscular Volume 73.8 fL Mean Corpuscular Hemoglobin 23.9 pg Mean Corpuscular Hemoglobin Concent 32.4 g/dl RDW Standard Deviation 56.3 fL RDW Coefficient of Variation 21.1 % Platelet Count 292 K/uL Mean Platelet Volume 8.9 fL Sodium Level 135 mmol/L Potassium Level 3.6 mmol/L Chloride Level 100 mmol/L Carbon Dioxide Level 32 mmol/L Anion Gap 3.0 mmol/L Blood Urea Nitrogen 19 mg/dl Creatinine 0.30 mg/dl Est Creatinine Clear Calc Drug Dose 123.4 ml/min Estimated GFR () 149.5 Estimated GFR (Non- 129.0 BUN/Creatinine Ratio 64.7 Random Glucose 135 mg/dl Calcium Level 8.5 mg/dl Magnesium Level 2.0 mg/dl Bedside Glucose 118 mg/dl Assessment & Plan Acute hypoxia Possible secondary to aspiration pneumonia Speech therapy on board Complete Levaquin and Zosyn course today Clinically improved Dysphagia/Aspiration DIRECTOR PRODUCT SAFETY recommending palliative care with p.o. intake for comfort with the understanding that pt likely will not be able to sustain nutritional needs and will potentially aspirate. S/P PEG tube placement on 12/02/16 May use PEG for medications today Please flush PEG every 4-6 hours with 60 mL of water Please have the PEG dressing change 1 time daily for 2 weeks Continue PEG feeding Will give caser shoe parts a script for tube feeding Unstagable sacral decubitus ulcer wound culture growing Morganella species sensitive to Zosyn. MRI reveals no evidence of osteo at this time. s/p debridement by dr. Lynn Continue daily wound care R knee pain. 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 Continue Tylenol for pain h/o CVA-p Continue aspirin Hypothyroidism- Continue Synthroid Depression continue Paxil. Anemia of chronic disease- Hbg stable DVT PROPHYLAXIS On Heparin SQ CODE STATUS Full code Daughter Nikkie Current Inpatient Medications: Current Inpatient Medications Medications (Trade) Dose Ordered Sig/Juan Route Start Time Stop Time Status Last Admin Dose Admin Ondansetron HCl (Zofran Inj) 4 mg Q6H PRN IV 11/28/16 15:30 12/28/16 15:29 12/04/16 23:43 4 MG Bisacodyl (Dulcolax Supp) 10 mg TuSa@0900 [place] 11/29/16 09:00 12/29/16 08:59 11/29/16 08:13 10 MG Piperacillin Sod/ Tazobactam Sod (Consult) 1 ea UD PRN N/A 11/28/16 19:26 12/07/16 23:59 Piperacillin Sod/ Tazobactam Sod 3.375 gm/Dextrose 115 ml @ 28.75 mls/ hr Q8H IV 11/28/16 20:00 12/07/16 19:59 12/07/16 12:07 28.75 MLS/HR Albuterol/ Ipratropium (Duoneb) 3 ml QIDR INH 11/30/16 08:00 12/30/16 07:59 12/07/16 11:33 3 ML Thiamine HCl 100 mg/Syringe 10 ml @ 2 mls/min QAM IV 12/01/16 09:00 10/11/17 08:59 12/07/16 08:01 2 MLS/MIN Morphine Sulfate (MoRPHine SULFATE INJ) 2 mg Q4H PRN IV 12/01/16 11:45 12/15/16 11:44 Heparin Sodium (Porcine) (Heparin Sq 5000 Unit/0.5ml) 5,000 unit Q12 SQ 12/03/16 21:00 01/02/17 20:59 12/06/16 20:29 5,000 UNIT Levofloxacin (Consult) 1 ea UD PRN N/A 12/03/16 16:30 12/07/16 23:59 Enteral Nutritional Formula (Impact 1.0 Rhett) 1,000 ml UD PEG 12/03/16 18:15 01/02/17 10:44 12/06/16 04:45 1,000 ML Acetaminophen (Tylenol Soln) 650 mg Q4H PRN PO 12/05/16 13:45 01/04/17 13:44 12/07/16 08:02 650 MG Levothyroxine Sodium (Synthroid Tab) 75 mcg DAILY PEG 12/06/16 09:00 01/05/17 08:59 12/07/16 08:00 75 MCG Paroxetine HCl (pAXil TAB) 20 mg DAILY PEG 12/06/16 09:00 01/05/17 08:59 12/07/16 08:00 20 MG Gabapentin (Neurontin) 200 mg TID PEG 12/05/16 14:00 01/04/17 13:59 12/07/16 13:51 200 MG Aspirin (Aspirin Chew) 81 mg QAM PEG 12/06/16 12:30 01/05/17 12:29 12/07/16 08:00 81 MG Levofloxacin 750 mg/Prmx 150 ml @ 100 mls/hr Q48H IV 12/07/16 16:00 12/07/16 17:29
[2016-12-07] MEDS ORDERED: LEVOFLOXACIN / D5W 750 MG in PREMIXED IN D5W 150 ML IV SCH (16:00)
[2016-12-08] VITALS (11 sets, daily range): BP systolic 107–157; BP diastolic 62–75; PULSE 71–80; TEMP 36.4; O2SAT 91–99
[2016-12-08] MEDS: ALBUT/IPRATROP 3MG/0.5MG NEB 3 ML VIAL INH SCH ×4 (07:13→19:31)
[2016-12-08] MEDS: THIAMINE HCL INJ 100 MG in SYRINGE 9 ML IV SCH (08:53)
[2016-12-08] MEDS: ASPIRIN 81 MG CHEW PEG SCH (08:53)
[2016-12-08] MEDS: PAROXETINE 20 MG TAB PEG SCH (08:53)
[2016-12-08] MEDS: LEVOTHYROXINE 75 MCG TAB PEG SCH (08:53)
[2016-12-08] MEDS: HEPARIN SOD 5000 UNIT/0.5 ML CARP SQ SCH ×2 (09:00→21:02)
[2016-12-08] MEDS: GABAPENTIN 250 MG/5 ML 470 ML BTL PEG SCH ×3 (09:01→20:54)
[2016-12-08] MEDS: IMPACT LIQ 1000 ML BAG PEG PRN (16:16)
--- NOTE | 2016-12-08 19:48 | Progress Note ---
Medicine Progress Note Date & Time of Visit: Dec 08, 2016 at 14:44. Subjective Pt was seen and examined Lying in bed with no distress denies any chest pain, palpitation and sob Objective Last 8 Hrs Date Time Temp Pulse Resp B/P (MAP) Pulse Ox O2 Delivery O2 Flow Rate FiO2 12/08/16 19:32 72 16 96 Room Air 12/08/16 18:58 78 142/68 (92) 98 12/08/16 16:00 95 Room Air 12/08/16 15:27 36.4 78 20 157/67 (97) 95 Room Air 12/08/16 15:22 80 16 95 Room Air Physical Exam: General- No acute distress Head- atraumatic, anicteric ENT- oropharynx clear Neck- supple, no JVD Lungs- coarse breath sound Heart- regular rhythm Abdomen- normal bowel sounds Extremities- no calf tenderness Neuro- alert, oriented x 3; PERRL, EOMI Skin- warm & dry Laboratory Results: Last 24 Hours Test 12/08/16 00:06 12/08/16 06:25 12/08/16 11:33 12/08/16 18:42 Bedside Glucose 105 mg/dl 134 mg/dl 131 mg/dl 148 mg/dl Assessment & Plan Acute hypoxia Possible secondary to aspiration pneumonia Speech therapy on board Completed Levaquin and Zosyn course Clinically improved Dysphagia/Aspiration 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 intake for comfort with the understanding that pt likely will not be able to sustain nutritional needs and will potentially aspirate. S/P PEG tube placement on 12/02/16 May use PEG for medications today Please flush PEG every 4-6 hours with 60 mL of water Please have the PEG dressing change 1 time daily for 2 weeks Continue PEG feeding case discussed with nutrition team Family would like the feeding tube to be continuous for 12hr instead of 24hr continuously will address that to nutrition team tomorrow Unstagable sacral decubitus ulcer wound culture growing Morganella species sensitive to Zosyn. MRI reveals no evidence of osteo at this time. s/p debridement by dr. Lynn Continue daily wound care R knee pain. 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 Continue Tylenol for pain h/o CVA-p Continue aspirin Hypothyroidism- Continue Synthroid Depression continue Paxil. Anemia of chronic disease Hbg stable DVT PROPHYLAXIS On Heparin SQ CODE STATUS Full code Daughter Nikkie Current Inpatient Medications: Current Inpatient Medications Medications (Trade) Dose Ordered Sig/Juan Route Start Time Stop Time Status Last Admin Dose Admin Ondansetron HCl (Zofran Inj) 4 mg Q6H PRN IV 11/28/16 15:30 12/28/16 15:29 12/04/16 23:43 4 MG Bisacodyl (Dulcolax Supp) 10 mg TuSa@0900 [place] 11/29/16 09:00 12/29/16 08:59 11/29/16 08:13 10 MG Albuterol/ Ipratropium (Duoneb) 3 ml QIDR INH 11/30/16 08:00 12/30/16 07:59 12/08/16 19:31 3 ML Thiamine HCl 100 mg/Syringe 10 ml @ 2 mls/min QAM IV 12/01/16 09:00 12/31/16 08:59 12/08/16 08:53 2 MLS/MIN Morphine Sulfate (MoRPHine SULFATE INJ) 2 mg Q4H PRN IV 12/01/16 11:45 12/15/16 11:44 Heparin Sodium (Porcine) (Heparin Sq 5000 Unit/0.5ml) 5,000 unit Q12 SQ 12/03/16 21:00 01/02/17 20:59 12/08/16 09:00 5,000 UNIT Acetaminophen (Tylenol Soln) 650 mg Q4H PRN PO 12/05/16 13:45 01/04/17 13:44 12/07/16 08:02 650 MG Levothyroxine Sodium (Synthroid Tab) 75 mcg DAILY PEG 12/06/16 09:00 01/05/17 08:59 12/08/16 08:53 75 MCG Paroxetine HCl (pAXil TAB) 20 mg DAILY PEG 12/06/16 09:00 01/05/17 08:59 12/08/16 08:53 20 MG Gabapentin (Neurontin) 200 mg TID PEG 12/05/16 14:00 01/04/17 13:59 12/08/16 14:07 200 MG Aspirin (Aspirin Chew) 81 mg QAM PEG 12/06/16 12:30 01/05/17 12:29 12/08/16 08:53 81 MG Enteral Nutritional Formula (Impact 1.0 Rhett) 1,000 ml UD PRN PEG 12/08/16 12:15 01/07/17 12:14 12/08/16 16:16 1,000 ML
[2016-12-09] VITALS (8 sets, daily range): BP systolic 113–127; BP diastolic 67–78; PULSE 82–87; TEMP 36.2–37.2; O2SAT 93–98
[2016-12-09 06:48] LABS: HEMATOCRIT 29.7 % (42-52); MEAN CELL VOLUME 73.5 fL (80-100); MEAN CORPUSCULAR HEMOGLOBIN 23.8 pg (25-34); MEAN CORPUSCULAR HGB CONC 32.3 g/dl (32-36); MEAN PLATELET VOLUME 8.9 fL (7.4-10.4); PLATELET COUNT 280 K/uL (130-400); RED BLOOD COUNT 4.04 M/uL (4.7-6.1); WHITE BLOOD COUNT 7.93 K/uL (4.8-10.8)
[2016-12-09 07:25] LABS: BUN/CREATININE RATIO 75.8 (10-20); CALCIUM 8.5 mg/dl (8.5-10.1); CREATININE 0.35 mg/dl (0.60-1.40); MAGNESIUM 2.2 mg/dl (1.8-2.4); PHOSPHORUS 2.9 mg/dl (2.5-4.9); POTASSIUM 4.5 mmol/L (3.5-5.1)
[2016-12-09] MEDS: ALBUT/IPRATROP 3MG/0.5MG NEB 3 ML VIAL INH SCH ×4 (07:33→20:00)
[2016-12-09] MEDS: ASPIRIN 81 MG CHEW PEG SCH (08:58)
[2016-12-09] MEDS: PAROXETINE 20 MG TAB PEG SCH (08:58)
[2016-12-09] MEDS: LEVOTHYROXINE 75 MCG TAB PEG SCH (08:58)
[2016-12-09] MEDS: GABAPENTIN 250 MG/5 ML 470 ML BTL PEG SCH ×3 (08:58→21:44)
[2016-12-09] MEDS: IMPACT LIQ 1000 ML BAG PEG PRN (08:58)
[2016-12-09] MEDS: THIAMINE HCL INJ 100 MG in SYRINGE 9 ML IV SCH (08:59)
[2016-12-09] MEDS: HEPARIN SOD 5000 UNIT/0.5 ML CARP SQ SCH ×2 (09:00→21:33)
[2016-12-09] MEDS: BISACODYL 10 MG SUPP PR SCH (09:00)
[2016-12-09] MEDS ORDERED: FIBERSOURCE HN 1000ML BAG PEG SCH ×2 (17:00)
--- NOTE | 2016-12-09 21:27 | Progress Note ---
Medicine Progress Note Date & Time of Visit: Dec 09, 2016 at 13:23. Subjective Pt was seen and examined Lying in bed with no distress Objective Last 8 Hrs Date Time Temp Pulse Resp B/P (MAP) Pulse Ox O2 Delivery O2 Flow Rate FiO2 12/09/16 20:33 84 16 96 Room Air 12/09/16 16:00 97 Room Air 12/09/16 15:21 85 16 96 Room Air 12/09/16 15:06 36.2 82 18 127/78 (94) 97 Room Air Physical Exam: General- No acute distress Head- atraumatic, anicteric ENT- oropharynx clear Neck- supple, no JVD Lungs- coarse breath sound Heart- regular rhythm Abdomen- normal bowel sounds Extremities- no calf tenderness Neuro- alert, oriented x 3; PERRL, EOMI Skin- warm & dry Laboratory Results: Last 24 Hours Test 12/08/16 23:47 12/09/16 06:25 12/09/16 06:35 12/09/16 11:25 Bedside Glucose 143 mg/dl 134 mg/dl 132 mg/dl White Blood Count 7.93 K/uL Red Blood Count 4.04 M/uL Hemoglobin 9.6 g/dL Hematocrit 29.7 % Mean Corpuscular Volume 73.5 fL Mean Corpuscular Hemoglobin 23.8 pg Mean Corpuscular Hemoglobin Concent 32.3 g/dl RDW Standard Deviation 57.3 fL RDW Coefficient of Variation 21.9 % Platelet Count 280 K/uL Mean Platelet Volume 8.9 fL Sodium Level 135 mmol/L Potassium Level 4.5 mmol/L Chloride Level 100 mmol/L Carbon Dioxide Level 30 mmol/L Anion Gap 5.0 mmol/L Blood Urea Nitrogen 27 mg/dl Creatinine 0.35 mg/dl Est Creatinine Clear Calc Drug Dose 107.5 ml/min Estimated GFR () 140.3 Estimated GFR (Non- 121.0 BUN/Creatinine Ratio 75.8 Random Glucose 123 mg/dl Calcium Level 8.5 mg/dl Phosphorus Level 2.9 mg/dl Magnesium Level 2.2 mg/dl Test 12/09/16 17:28 Bedside Glucose 139 mg/dl Assessment & Plan Acute hypoxia Possible secondary to aspiration pneumonia Speech therapy on board Completed Levaquin and Zosyn course Clinically improved stable Dysphagia/Aspiration EXHAUST EMISSIONS INSPECTOR recommending palliative care with p.o. intake for comfort with the understanding that pt likely will not be able to sustain nutritional needs and will potentially aspirate. S/P PEG tube placement on 12/02/16 May use PEG for medications today Please flush PEG every 4-6 hours with 60 mL of water Please have the PEG dressing change 1 time daily for 2 weeks Continue PEG feeding case discussed with nutrition team Family would like the feeding tube to be continuous for 12hr instead of 24hr continuously case discussed with nutrition Since family would like the feeding tube to run for 12hr, will double the rate Will do 150ml water flush before and after feeding Unstagable sacral decubitus ulcer wound culture growing Morganella species sensitive to Zosyn. MRI reveals no evidence of osteo at this time. s/p debridement by dr. Lynn Continue daily wound care R knee pain. 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 Continue Tylenol for pain h/o CVA-p Continue aspirin Hypothyroidism- Continue Synthroid Depression continue Paxil. Anemia of chronic disease Hbg stable DVT PROPHYLAXIS On Heparin SQ CODE STATUS Full code Daughter Nikkie Current Inpatient Medications: Current Inpatient Medications Medications (Trade) Dose Ordered Sig/Juan Route Start Time Stop Time Status Last Admin Dose Admin Ondansetron HCl (Zofran Inj) 4 mg Q6H PRN IV 11/28/16 15:30 12/28/16 15:29 12/04/16 23:43 4 MG Bisacodyl (Dulcolax Supp) 10 mg TuSa@0900 [place] 11/29/16 09:00 12/29/16 08:59 11/29/16 08:13 10 MG Albuterol/ Ipratropium (Duoneb) 3 ml QIDR INH 11/30/16 08:00 12/30/16 07:59 12/09/16 20:00 3 ML Thiamine HCl 100 mg/Syringe 10 ml @ 2 mls/min QAM IV 12/01/16 09:00 12/31/16 08:59 12/09/16 08:59 2 MLS/MIN Morphine Sulfate (MoRPHine SULFATE INJ) 2 mg Q4H PRN IV 12/01/16 11:45 12/15/16 11:44 Heparin Sodium (Porcine) (Heparin Sq 5000 Unit/0.5ml) 5,000 unit Q12 SQ 12/03/16 21:00 01/02/17 20:59 9/19/17 09:00 5,000 UNIT Acetaminophen (Tylenol Soln) 650 mg Q4H PRN PO 12/05/16 13:45 01/04/17 13:44 12/07/16 08:02 650 MG Levothyroxine Sodium (Synthroid Tab) 75 mcg DAILY PEG 12/06/16 09:00 01/05/17 08:59 12/09/16 08:58 75 MCG Paroxetine HCl (pAXil TAB) 20 mg DAILY PEG 12/06/16 09:00 01/05/17 08:59 12/09/16 08:58 20 MG Gabapentin (Neurontin) 200 mg TID PEG 12/05/16 14:00 01/04/17 13:59 12/09/16 13:49 200 MG Aspirin (Aspirin Chew) 81 mg QAM PEG 12/06/16 12:30 01/05/17 12:29 12/09/16 08:58 81 MG Enteral Nutritional Formula (Impact 1.0 Rhett) 1,000 ml UD PRN PEG 12/08/16 12:15 01/07/17 12:14 12/09/16 08:58 1,000 ML Enteral Nutritional Formula (Fibersource HN) 1,000 ml UD PEG 12/09/16 17:00 01/08/17 16:59
[2016-12-10] VITALS (8 sets, daily range): BP systolic 117–150; BP diastolic 62–75; PULSE 81–100; TEMP 36.3–36.7; O2SAT 88–96
[2016-12-10] MEDS: ALBUT/IPRATROP 3MG/0.5MG NEB 3 ML VIAL INH SCH ×3 (07:47→14:50)
[2016-12-10] MEDS: LEVOTHYROXINE 75 MCG TAB PEG SCH (08:54)
[2016-12-10] MEDS: PAROXETINE 20 MG TAB PEG SCH (08:54)
[2016-12-10] MEDS: THIAMINE HCL INJ 100 MG in SYRINGE 9 ML IV SCH (08:54)
[2016-12-10] MEDS: GABAPENTIN 250 MG/5 ML 470 ML BTL PEG SCH ×2 (08:54→14:29)
[2016-12-10] MEDS: HEPARIN SOD 5000 UNIT/0.5 ML CARP SQ SCH (08:57)
[2016-12-10] MEDS: ASPIRIN 81 MG CHEW PEG SCH (08:57)
--- NOTE | 2016-12-10 13:20 | Progress Note ---
Medicine Progress Note Date & Time of Visit: Dec 10, 2016 at 13:14. Subjective Pt was seen an examined Lying in bed with no distress Denies any chest pain, palpitation, dizziness and SOB Objective Last 8 Hrs Date Time Temp Pulse Resp B/P (MAP) Pulse Ox O2 Delivery O2 Flow Rate FiO2 12/10/16 11:11 88 14 96 Room Air 12/10/16 09:28 96 Room Air 12/10/16 08:30 Room Air 12/10/16 08:07 36.6 100 20 126/62 (83) 88 Room Air 12/10/16 07:57 81 14 96 Room Air Physical Exam: General- No acute distress Head- atraumatic, anicteric ENT- oropharynx clear Neck- supple, no JVD Lungs- No wheezing Heart- regular rhythm Abdomen- normal bowel sounds Extremities- no calf tenderness Neuro- alert, oriented x 3; PERRL, EOMI Skin- warm & dry Laboratory Results: Last 24 Hours Test 12/09/16 17:28 12/10/16 00:14 12/10/16 06:43 12/10/16 11:17 Bedside Glucose 139 mg/dl 131 mg/dl 138 mg/dl 134 mg/dl Assessment & Plan Acute hypoxia Possible secondary to aspiration pneumonia Speech therapy on board Completed Levaquin and Zosyn course Clinically improved stable Dysphagia/Aspiration 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 intake for comfort with the understanding that pt likely will not be able to sustain nutritional needs and will potentially aspirate. S/P PEG tube placement on 12/02/16 May use PEG for medications today Please flush PEG every 4-6 hours with 60 mL of water Please have the PEG dressing change 1 time daily for 2 weeks Continue PEG feeding case discussed with nutrition team Family would like the feeding tube to be continuous for 12hr instead of 24hr continuously case discussed with nutrition Since family would like the feeding tube to run for 12hr, will double the rate Will do 150ml water flush before and after feeding Unstagable sacral decubitus ulcer wound culture growing Morganella species sensitive to Zosyn. MRI reveals no evidence of osteo at this time. s/p debridement by dr. Lynn Continue daily wound care script given for replacement hospital bed mattress and alternating pressure mattress encouraged care give to change side every 2 hrs R knee pain. 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 Continue Tylenol for pain h/o CVA-p Continue aspirin Hypothyroidism- Continue Synthroid Depression continue Paxil. Anemia of chronic disease Hbg stable DVT PROPHYLAXIS On Heparin SQ CODE STATUS Full code Daughter Nikkie Disposition Will discharge today Current Inpatient Medications: Current Inpatient Medications Medications (Trade) Dose Ordered Sig/Juan Route Start Time Stop Time Status Last Admin Dose Admin Ondansetron HCl (Zofran Inj) 4 mg Q6H PRN IV 11/28/16 15:30 12/28/16 15:29 12/04/16 23:43 4 MG Bisacodyl (Dulcolax Supp) 10 mg TuSa@0900 [place] 11/29/16 09:00 12/29/16 08:59 11/29/16 08:13 10 MG Albuterol/ Ipratropium (Duoneb) 3 ml QIDR INH 11/30/16 08:00 12/30/16 07:59 12/10/16 11:11 3 ML Thiamine HCl 100 mg/Syringe 10 ml @ 2 mls/min QAM IV 12/01/16 09:00 12/31/16 08:59 12/10/16 08:54 2 MLS/MIN Morphine Sulfate (MoRPHine SULFATE INJ) 2 mg Q4H PRN IV 12/01/16 11:45 12/15/16 11:44 Heparin Sodium (Porcine) (Heparin Sq 5000 Unit/0.5ml) 5,000 unit Q12 SQ 12/03/16 21:00 01/02/17 20:59 12/10/16 08:57 5,000 UNIT Acetaminophen (Tylenol Soln) 650 mg Q4H PRN PO 12/05/16 13:45 01/04/17 13:44 12/07/16 08:02 650 MG Levothyroxine Sodium (Synthroid Tab) 75 mcg DAILY PEG 12/06/16 09:00 01/05/17 08:59 12/10/16 08:54 75 MCG Paroxetine HCl (pAXil TAB) 20 mg DAILY PEG 12/06/16 09:00 01/05/17 08:59 12/10/16 08:54 20 MG Gabapentin (Neurontin) 200 mg TID PEG 12/05/16 14:00 01/04/17 13:59 12/10/16 08:54 200 MG Aspirin (Aspirin Chew) 81 mg QAM PEG 12/06/16 12:30 01/05/17 12:29 12/10/16 08:57 81 MG Enteral Nutritional Formula (Impact 1.0 Rhett) 1,000 ml UD PRN PEG 12/08/16 12:15 01/07/17 12:14 12/09/16 08:58 1,000 ML Enteral Nutritional Formula (Fibersource HN) 1,000 ml UD PEG 12/09/16 17:00 01/08/17 16:59
[2016-12-10] MEDS ORDERED: IPRASOL4 INH (13:31)
[2016-12-10] MEDS ORDERED: Fibersource 1.2 Cal PEG (13:31)
[2016-12-10] MEDS ORDERED: ACET160S3 PEG (13:31)
[2016-12-10] MEDS ORDERED: [UNRECOGNIZED DRUG - CODE] PEG (13:31)
[2016-12-10] MEDS ORDERED: ASPEC81 PEG (13:33)
--- NOTE | 2016-12-10 13:47 | Discharge Instructions ---
Discharge Instructions Date of Service Dec 10, 2016. Admission Reason for Admission: Aspiration Pneumonia Discharge Discharge Diagnosis / Problem: Aspiration Pneumonia, Unstagable sacral decubitus ulcer, Hypothyroidism Discharge Goals Goal(s): Decrease discomfort, Improve function, Improve disease control Activity Recommendations Activity Limitations: resume your previous activity (as tolerated) . Instructions / Follow-Up Instructions / Follow-Up Discharge home with home health care Follow up with your primary care provider Dr. Lin on 12/16 @ 1:40 pm Continue daily wound care Follow up with wound care clinic (Office will call for appointment) Change position every 2 hrs to avoid pressure decubitus ulcer Fall precaution Continue PT/OT Continue tube feeding 12hr on and 12 hr off Water flush with 150ml before tube feeding and after feeding Aspiration precaution ( keep head of the bed elevated at 30 degree) Current Hospital Diet Patient's current hospital diet: Discharge Diet Recommended Diet: N/A (Peg tube feeding) Pending Studies Studies pending at discharge: no Medical Emergencies . Who to Call and When: Medical Emergencies: If at any time you feel your situation is an emergency, please call 911 immediately. . Non-Emergent Contact Non-Emergency issues call your: Primary Care Provider Call Non-Emergent contact if: you have any medication questions . . "Provider Documentation" section prepared by Karin Ndiaye. . VTE Core Measure Inpt VTE Proph given/why not?: Unfractionated heparin SQ
--- NOTE | 2016-12-15 03:19 | Discharge Summary ---
Discharge Summary Date of Service Dec 15, 2016. Discharge Summary Admission Date: Nov 28, 2016 at 15:06 Discharge Date: Dec 10, 2016 Discharge Disposition: Home with services Principal Diagnosis: Acute hypoxia Secondary Diagnoses/Problems: Dysphagia/Aspiration Unstagable sacral decubitus ulcer R knee pain Anemia of chronic disease Hx CVA Hypothyroidism Depression Procedures: VENOUS DOPPLER LWR EXT BILA HISTORY: Pain. Edema. r/o DVT COMPARISON STUDY: None. FINDINGS: There is normal compressibility, flow, and augmentation within the bilateral lower extremity deep venous systems. IMPRESSION: No DVT within the right or left lower extremity. The above report was generated using voice recognition software. It may contain grammatical, syntax or spelling errors. Electronically signed by: Abhishek Caldwell M.D. 11/29/2016 6:16 AM Dictated Date/Time: 11/29/2016 6:16 AM LUMBAR SPINE COMBINATION HISTORY: Pain. Infection. rule out osteomyelitis; lumbosacral spine TECHNIQUE: Multiplanar multisequence MRI of the lumbar spine was performed both before and after the intravenous administration of contrast. COMPARISON: None. FINDINGS: For the purpose of the report the L5-S1 disc space will be located on axial image 2225. Moderate to rather significant degenerative disc change throughout the entire lumbar region. No bone marrow replacing process. No evidence for compression deformity. L1-L2: No significant central canal or neural foraminal narrowing. L2-L3: No significant central canal or neural foraminal narrowing. L3-L4: Mild broad-based disc bulge. No significant compromise of the spinal canal or neural foramina. L4-L5: Mild broad-based disc bulge. Minimal impact anterior thecal sac. L5-S1: No significant central canal or neural foraminal narrowing. IMPRESSION: 1. Several mild disc bulges from L3 through L5. 2. No significant disc herniation or spinal stenosis. 3. No abnormal postcontrast enhancement. 4. No bone marrow replacing process The above report was generated using voice recognition software. It may contain grammatical, syntax or spelling errors. Electronically signed by: Abhishek Caldwell M.D. 11/29/2016 3:12 PM Dictated Date/Time: 11/29/2016 3:09 PM [~ rep ct add3]] ORBITS FOR MRI HISTORY: Pre-MRI pre-MRI screening. COMPARISON: None. FINDINGS: There are no radiopaque foreign bodies identified within the orbits. IMPRESSION: No radiopaque foreign bodies identified within the orbits. [~ rep ct add3]] ABD/PELVIS NO IV OR ORAL CONT HISTORY: 76 years-old Male LLQ pain, altered acute altered mental status with left lower quadrant abdominal pain. Initial exam. COMPARISON: None available. TECHNIQUE: Multiple axial CT images of the abdomen and pelvis were obtained without contrast. A dose lowering technique was used consistent with the principals of SHELL. FINDINGS: The exam is very limited secondary to positioning of the patient. Subsegmental patchy consolidative and groundglass opacities involve the left greater than right basal lower lobes, only partially imaged. There is no pneumoperitoneum. Coronary arterial calcifications are noted. No gross abnormality of the liver identified. There is prominent streak artifact involving the liver from metallic leads adjacent to the right flank. Layering gallstones are seen within the gallbladder lumen without CT evidence of acute cholecystitis. Spleen, pancreas and right adrenal gland are grossly unremarkable. There is nodular thickening of the left adrenal gland suggesting hyperplasia. There are vascular renal calcifications bilaterally without definite renal calculi or hydronephrosis. Pelvic structures including the urinary bladder are mostly obscured from right hip hardware. There is extensive atherosclerosis of the abdominal aorta. No bulky adenopathy is identified. There is no bowel obstruction or focal small bowel wall thickening identified. There is thickening of the rectal wall, 5 mm with 6 cm stool ball in the rectal vault. Mild surrounding inflammatory stranding. There is moderate colonic stool burden. The appendix appears normal. Bones are moderately demineralized with multifocal degenerative changes. No acute bony abnormality. IMPRESSION: 1. Very limited study secondary to patient positioning and lack of contrast. 2. Wall thickening of the rectum with associated moderate rectal stool volume suggests stercoral proctitis with associated constipation. 3. Cholelithiasis without CT evidence of acute cholecystitis. 4. Left greater than right bilateral lower lobe groundglass and consolidative opacities are suspicious for pneumonia or aspiration pneumonitis. 5. Additional incidental findings as above. The above report was generated using voice recognition software. It may contain grammatical, syntax or spelling errors. Electronically signed by: Venkat Arce M.D. 11/28/2016 1:37 PM Dictated Date/Time: 11/28/2016 1:24 PM [~ rep ct add3]] HEAD CT NONCONTRAST CT DOSE: 729.78 mGycm HISTORY: Altered mental status. TECHNIQUE: Multiaxial CT images of the head were performed without the use of intravenous contrast. Automated exposure control was utilized for this study. A dose lowering technique was utilized adhering to the principles of ALARA. Comparison: None. Findings: Paranasal sinuses and right mastoid air cells are clear. Opacified left inferior mastoid air cells. The calvarium and skull base are intact. There is no mass, hematoma, midline shift, acute infarct. White matter hypodensity is nonspecific but suggestive of microvascular ischemic change. The ventricles and sulci demonstrate mild age-related involutional changes. Encephalomalacia within the left external capsule and left posterior frontal lobe consistent with an old infarct. Old lacunar infarction within the left basal ganglia, right thalamus, and right basal ganglia. Impression: No acute intracranial abnormality. Atrophy and microvascular ischemic changes. Old infarcts as described above. Electronically signed by: Lyndon Barron M.D. 11/28/2016 1:16 PM Dictated Date/Time: 11/28/2016 1:13 PM CHEST ONE VIEW PORTABLE HISTORY: 76 years-old Male EVALUATE WEAKNESS acute weakness. Initial exam. COMPARISON: Chest radiograph 11/10/2013 TECHNIQUE: Semiupright AP view of the chest FINDINGS: Cardiac silhouette is mildly enlarged. The patient is rotated to the left. There is atherosclerosis of the aorta. Mild biapical pleural-parenchymal and retrocardiac scarring is again noted without pneumothorax, pleural effusion, focal airspace consolidation or overt pulmonary edema. The bones are grossly intact. IMPRESSION: Mild biapical and retrocardiac subsegmental scarring or atelectasis without acute cardiopulmonary process. The above report was generated using voice recognition software. It may contain grammatical, syntax or spelling errors. Electronically signed by: Venkat Arce M.D. 11/28/2016 12:28 PM Dictated Date/Time: 11/28/2016 12:27 PM Medication Reconciliation New Medications: Acetaminophen (Acetaminophen) 160 Mg/5 Ml Deepali 650 MG PEG Q6 PRN for Pain for 7 Days Enteral Nutrition Formula (Impact/Fiber) 1,000 Ml Liqd 1000 ML PEG UD PRN for Tube Feeding for 30 Days Ipratropium-Albuterol (Duoneb) 3 Ml Nebu 3 ML INH QIDR for 7 Days [Fibersource 1.2 Rhett] () 1000 ML LIQD 1000 ML PEG UD Changed Medications: Aspirin (Aspirin EC Low Dose) 81 Mg Ectab 81 MG PEG DAILY for 30 Days (Changed from: PO) Continued Medications: Bisacodyl (Dulcolax) 10 Mg Sup 1 SUPP SC UD, SUP Thursday and Thursday Cholecalciferol (Vitamin D-1000) 1,000 Unit Tab 1 TAB PEG DAILY Gabapentin (Neurontin) 100 Mg Cap 200 MG PEG TID, CAP Levothyroxine Sodium (Levothyroxine Sodium) 100 Mcg Tab 75 MCG PEG DAILY for 90 Days, #63 TAB 3 Refills Paroxetine (Paxil) 20 Mg Tab 20 MG PEG DAILY, TAB Discontinued Medications: Amoxicillin & Pot Clavulanate (Augmentin 875-125 mg) 1 Tab Tab 1 TAB PO BID, #14 TAB Tramadol (Ultram) 50 Mg Tab 50 MG PO Q4H PRN for Pain, TAB Admission Information HPI (per Admitting provider): This is a 76 y/o male with PMH of stroke with residual RUE/RLE weakness, aphasia , dysphagia, hx throat cancer, and other problems listed below who was sent to the ED by ambulance from home for decubitus ulcer and hypoxia noted by home nurse. Unable to obtain hx from patient due to aphasia. Per phone call with daughter Nikkie who he lives with, patient developed a bed sore on the sacrum last week. Had been lying in bed most of the day due to bilateral foot pain x 6 weeks. Gets transferred up to wheelchair twice per day. Pt's PCP was called about the ulcer and home nursing was started. Patient has also been on Augmentin for 6 days, Rx called in by Dr. Lin for "lung congestion" heard by home nurse. This morning home nurse noted BP was elevated and oxygen saturations dropped to 86-87% on RA. Not on home O2. Has been coughing without bringing up sputum. No fever or chills. Eats pureed diet. No overt aspiration episode per daughter. Has chronic dysphagia, but daughter feels his swallowing is worse lately. Appetite is low for 2 days (eating half of meals). Lost about 10 lb in past few months. Daughter states she thinks he may need a feeding tube. States he is passing BM on current regimen. Has chronic weakness of RUE and RLE post-stroke. Starting 4 days ago daughter reports RLE is contracted and right knee pain. No recent fall. No recent hospitalization. The patient himself denies chest pain or SOB. Points to lower extremities when asked about pain. Physical Exam (per Admitting): General Appearance: + cachetic, + pertinent finding (alert frail elderly male, not in distress) Head: normocephalic, atraumatic Eyes: normal inspection, sclerae normal ENT: hearing grossly normal, + pertinent finding (dry mucous membranes) Neck: trachea midline Respiratory/Chest: no respiratory distress, no accessory muscle use, + rhonchi (scattered), + pertinent finding (hypoxic to 89% on RA, mid 90's on 2L NC) Cardiovascular: regular rate, rhythm, no murmur Abdomen/GI: normal bowel sounds, non tender, soft Extremities/Musculoskelatal: no calf tenderness, no pedal edema Neurologic/Psych: alert, normal mood/affect, + pertinent finding (mostly aphasic but can answer yes/no questions, RUE and RLE flaccid from prior stroke, able to move LUE and LLE on command) Skin: + pertinent finding (sacrum has 3x4 cm foul smelling decubitus ulcer, unstageable, at least stage III, surrounding ecchymosis) Hospital Course Acute hypoxia Possible secondary to aspiration pneumonia Speech therapy on board Completed Levaquin and Zosyn course Clinically improved stable 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 intake for comfort with the understanding that pt likely will not be able to sustain nutritional needs and will potentially aspirate. S/P PEG tube placement on 12/02/16 May use PEG for medications today Please flush PEG every 4-6 hours with 60 mL of water Please have the PEG dressing change 1 time daily for 2 weeks Continue PEG feeding case discussed with nutrition team Family would like the feeding tube to be continuous for 12hr instead of 24hr continuously case discussed with nutrition Since family would like the feeding tube to run for 12hr, will double the rate Will do 150ml water flush before and after feeding Unstagable sacral decubitus ulcer wound culture growing Morganella species sensitive to Zosyn. MRI reveals no evidence of osteo at this time. s/p debridement by dr. Lynn Continue daily wound care script given for replacement hospital bed mattress and alternating pressure mattress encouraged care give to change side every 2 hrs R knee pain. 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 Continue Tylenol for pain h/o CVA Continue aspirin Hypothyroidism- Continue Synthroid Depression continue Paxil. Anemia of chronic disease Hbg stable DVT PROPHYLAXIS On Heparin SQ CODE STATUS Full code Daughter Nikkie Valdez [phone] Disposition Will discharge today Total time spent on discharge = 35 minutes This includes examination of the patient, discharge planning, medication reconciliation, and communication with other providers. Discharge Instructions Discharge Instructions Date of Service Dec 10, 2016. Admission Reason for Admission: Aspiration Pneumonia Discharge Discharge Diagnosis / Problem: Aspiration Pneumonia, Unstagable sacral decubitus ulcer, Hypothyroidism Discharge Goals Goal(s): Decrease discomfort, Improve function, Improve disease control Activity Recommendations Activity Limitations: resume your previous activity (as tolerated) . Instructions / Follow-Up Instructions / Follow-Up Discharge home with home health care Follow up with your primary care provider Dr. Lin on 12/16 @ 1:40 pm Continue daily wound care Follow up with wound care clinic (Office will call for appointment) Change position every 2 hrs to avoid pressure decubitus ulcer Fall precaution Continue PT/OT Continue tube feeding 12hr on and 12 hr off Water flush with 150ml before tube feeding and after feeding Aspiration precaution ( keep head of the bed elevated at 30 degree) Current Hospital Diet Patient's current hospital diet: Discharge Diet Recommended Diet: N/A (Peg tube feeding) Pending Studies Studies pending at discharge: no Medical Emergencies . Who to Call and When: Medical Emergencies: If at any time you feel your situation is an emergency, please call 911 immediately. . Non-Emergent Contact Non-Emergency issues call your: Primary Care Provider Call Non-Emergent contact if: you have any medication questions . . "Provider Documentation" section prepared by Karin Ndiaye. . VTE Core Measure Inpt VTE Proph given/why not?: Unfractionated heparin SQ Additional Copies To Demetrius Lin M.D.
== END 2016-12-10 16:55 | disposition home health service (06) | DRG 981 ==
LOC: EDBD 10:28 → C.EDB 10:30 → C.MS2W 15:06 → ENRESERV 15:20
PROVIDERS: ADMIT Family Medicine; ATTEND Internal Medicine
PROC: 0JD90ZZ Extraction of Buttock Subcutaneous Tissue and Fascia, Open Approach (ICD-10-PCS; 2016-12-01)
PROC: 0DJ68ZZ Inspection of Stomach, Via Natural or Artificial Opening Endoscopic (ICD-10-PCS; principal; 2016-12-02 13:07)
PROC: 0DH64UZ Insertion of Feeding Device into Stomach, Percutaneous Endoscopic Approach (ICD-10-PCS; principal; 2016-12-02 13:07)
DX: J69.0 Pneumonitis due to inhalation of food and vomit (principal); L89.153 Pressure ulcer of sacral region, stage 3; E43 Unspecified severe protein-calorie malnutrition; I69.351 Hemiplegia and hemiparesis following cerebral infarction affecting right dominant side; Z68.1 Body mass index [BMI] 19.9 or less, adult; I69.320 Aphasia following cerebral infarction; I25.10 Atherosclerotic heart disease of native coronary artery without angina pectoris; F32.9 Major depressive disorder, single episode, unspecified; K21.9 Gastro-esophageal reflux disease without esophagitis; E78.5 Hyperlipidemia, unspecified; I10 Essential (primary) hypertension; E03.9 Hypothyroidism, unspecified; I69.391 Dysphagia following cerebral infarction; R09.02 Hypoxemia; M24.561 Contracture, right knee; D63.8 Anemia in other chronic diseases classified elsewhere; Z51.5 Encounter for palliative care; Z79.82 Long term (current) use of aspirin; Z79.899 Other long term (current) drug therapy